=== PATIENT | male | born 1945 | race Caucasian/White ===

== ENCOUNTER 2016-06-21 22:08 | Inpatient (IN) | payer MEDICARE, BC ==
[~2016-06-21] VITALS: Ht 172.7 cm; Wt 117.9 kg
--- NOTE | ~2016-06-21 | HEMODYNAMI ---
PATIENT:THADDEUS WEAVER MEDICAL RECORD: [id number] : 49 LOCATION:[facility] [id number] ADMISSION DATE: 06/22/16 Generatedon:06/23/201612:10 Patient name: THADDEUS WEAVER Patient #: [id number] SSN: : 1945 Date of study: 06/23/2016 Page: Of Hemodynamic Procedure Report Patient Data Patient Demographics Procedure consent was obtained First Name: THADDEUS Gender: Male Last Name: MEG : 1945 [facility] Initial: T Age: 71 year(s) Patient #: [id number] Race: Additional ID: [id number] Contact details Address: [address] [place] [address] [address] State: [place] City: [place] Zip code: [address] Past Medical History History of disease Date Diagnosis Comments CAD Allergies Allergen Reaction Date Comments Reported Demerol 05/21/2014 Morphine 07/15/2015 Demerol 06/23/2016 Morphine 06/23/2016 Other allergy 06/23/2016 DILAUDID Admission Admission Data Admission Date: 06/22/2016 Admission Time: 15:53 Room #: D.2306 Weight (lbs.): 257.28 Weight (kg.): 116.7 Lab Results Lab Result Date: 06/23/2016 Lab Result Time: 0:00 Biochemistry Name Units Result Min Max BUN mg/dl 17 --(---*)-- 7 18 Creatinine mg/dl 1.1 --(--*-)-- 0.6 1.3 CBC Name Units Result Min Max Hemoglobin g/dl 11.5 *-(----)-- 13.5 17.5 Coagulation Name Units Result Min Max INR units 1.84 --(----)-* 0.85 1.17 PT sec 21.3 --(----)-* 11.6 15 Procedure Procedure Types Cath Procedure Diagnostic Procedure LHC LHC w/Coronaries w/Grafts PCI Procedure PTCA Initial Miscellaneous Procedures Moderate Sedation up to 30 minutes Procedure Description Procedure Date Procedure Date: 06/23/2016 Procedure Start Time: 11:47 Procedure End Time: 12:06 Procedure Staff Name Function Ilya Mackey MD Performing Physician Ludwin Ceron RT Scrub Sisi Espinoza RN Nurse Kaden Stevenson RT Monitor Procedure Data Cath Procedure Fluoroscopy Diagnostic fluoroscopy Total fluoroscopy Time: 5.6 time: 5.6 min min Diagnostic fluoroscopy Total fluoroscopy dose: 554 dose: 554 mGy mGy Contrast Material Contrast Material Type Amount (ml) Isovue 300 91 Entry Location Entry Primary Successful Side Size Upsize Upsize Entry Closure Succes sful Closure Location (Fr) 1 (Fr) 2 (Fr) Remarks Device Remarks Femoral Right 5 Fr 6 Fr Exoseal artery Short Diagnostic catheters Device Type Used For End Catheter Placement Cordis 5Fr Pigtail LV Angiography Catheter (MP) Diagnostic Infinity 5Fr SVG Angiography 3DRC catheter Diagnostic Infinity 5Fr SVG Angiography AR 2 MOD catheter Cordis 5Fr Pigtail Catheter (MP) Procedure Complications No complications Procedure Medications Medication Administration Route Dosage Oxygen NC 2 l/min Heparin Flush Bag added to field 2 bags (1000units/500ml NS) Lidocaine 2% added to field 20 Versed I.V. 1 mg Fentanyl I.V. 50 mcg Heparin Bolus I.V. 4000 units Versed I.V. 1 mg Fentanyl I.V. 50 mcg Versed I.V. 1 mg Fentanyl I.V. 50 mcg Fentanyl I.V. 50 mcg Versed I.V. 1 mg Versed I.V. 0.5 mg Fentanyl I.V. 50 mcg Hemodynamics Rest HGB: 11.5 (g/dl) Heart Rate: 80 (bpm) Snapshots Pre Cath Intra NCS Post Cath Vital Signs Time Heart Resp SPO2 NIBP (mmHg) Rhythm Pain Sedation Rate (ipm) (%) Status Level (bpm) 11:14:48 79 23 97 123/73(88) NSR 0 (11) 10(A) , No pain 11:18:56 79 16 97 109/76(96) NSR 0 (11) 10(A) , No pain 11:23:01 84 16 97 117/74(101) NSR 0 (11) 10(A) , No pain 11:27:11 78 16 95 115/71(89) NSR 0 (11) 10(A) , No pain 11:31:21 81 16 96 112/71(91) NSR 0 (11) 10(A) , No pain 11:35:33 80 16 97 116/68(84) NSR 0 (11) 10(A) , No pain 11:39:41 82 15 95 109/73(93) NSR 0 (11) 10(A) , No pain 11:43:47 82 16 97 118/77(96) NSR 0 (11) 10(A) , No pain 11:47:57 80 16 97 107/67(98) NSR 0 (11) 10(A) , No pain 11:52:03 77 16 96 110/77(90) NSR 0 (11) 10(A) , No pain 11:56:10 85 16 98 121/69(99) NSR 0 (11) 9(A) , No pain 12:00:22 88 17 95 113/67(101) NSR 0 (11) 9(A) , No pain 12:04:30 90 16 96 125/74(101) NSR 0 (11) 9(A) , No pain Medications Time Medication Route Dose Verified Delivered Reason Notes Effectiveness by by 11:16:10 Oxygen NC 2 Ilya Sisi Per physician l/min Narendra Espinoza RN 11:16:17 Heparin Flush added 2 Ilya Ilya used for Bag to bags Narendra Mackey MD procedure (1000units/500ml field NS) 11:16:25 Lidocaine 2% added 20ml Ilyagal Nuñezrey used for to vial Narendra Mackey MD procedure field 11:46:13 Versed I.V. 1 mg Ilya Sisi for sedation Narendra Espinoza RN 11:46:18 Fentanyl I.V. 50 Ilya Sisi for sedation mcg Narendra Espinoza RN 11:48:01 Versed I.V. 1 mg Ilya Sisi for sedation Narendra Espinoza RN 11:48:06 Fentanyl I.V. 50 Ilya Sisi for sedation mcg Narendra Espinoza RN 11:50:22 Versed I.V. 1 mg Ilya Sisi for sedation Narendra Espinoza RN 11:50:35 Fentanyl I.V. 50 Ilya Sisi for sedation mcg Narendra Espinoza RN 11:52:30 Fentanyl I.V. 50 Ilya Sisi for sedation mcg Narendra Espinoza RN 11:52:38 Versed I.V. 1 mg Ilya Sisi for sedation Narendra Espinoza RN 11:54:30 Versed I.V. 0.5 Ilya Sisi for sedation mg Narendra Espinoza RN 11:54:48 Fentanyl I.V. 50 Ilya Sisi for sedation mcg Narendra Espinoza RN 11:55:23 Heparin Bolus I.V. 4000 Ilya Sisi for dose units Nraendra Espinoza RN anticoagulation verified with dr mackey Procedure Log Time Note 10:45:03 Sisi Espinoza RN sent for patient. Start room use. 10:53:59 ACC Patient presents with Unstable Angina CCS Anginal Class 3--Marked limitation of physical activity, angina occurs with ordinary activity.. 10:54:01 Diagnostic Cath status Urgent 10:54:12 Time tracking: Regular hours 10:54:17 Plan of Care:Hemodynamics will remain stable., Cardiac rhythm will remain stable., Comfort level will be maintained., Respiratory function will remain adequate., Patient/ family verbilizes understanding of procedure., Procedure tolerated without complication., Recovers from procedure without complications.. 11:13:46 Vital chart was started 11:16:10 Oxygen 2 l/min NC was given by Sisi Espinoza RN; Per physician; 11:16:17 Heparin Flush Bag (1000units/500ml NS) 2 bags added to field was given by Ilya Mackey MD; used for procedure; 11:16:25 Lidocaine 2% 20ml vial added to field was given by Ilya Mackey MD; used for procedure; 11:19:16 Patient received from ICU to CCL 2 Alert and oriented. Tansferred to table in Supine position. 11:19:17 Warm blankets applied, and lily hugger turned on for patient comfort. 11:19:17 Correct patient and procedure confirmed by team. 11:19:18 Signed procedure consent form obtained from patient. 11:19:19 ECG and BP/O2 sat monitors applied to patient. 11:19:20 Baseline sample Acquired. 11:19:23 Rhythm: sinus rhythm 11:19:24 Full Disclosure recording started 11:19:32 H&P Date Dictated: 06/22/2016 Within 30 days and on chart.. 11:19:33 Pre-procedure instructions explained to patient. 11:19:33 Pre-op teaching completed and patient verbalized understanding. 11:19:35 Family unavailable. 11:19:36 Patient NPO since Midnight. 11:19:43 Patient allergic to Demerol 11:19:49 Patient allergic to Morphine 11:20:04 Patient allergic to Other allergyDILAUDID 11:20:06 Is the patient allergic to Iodine/contrast media? No. 11:20:22 Is patient on blood thinner?Yes 11:20:24 ACC The patient was administered the following blood thiners within the last 24 hours: ACCPlavix 11:20:26 Patient diabetic? No. 11:20:26 ----Pre-sedation anethsthesia assessment.---- 11:20:29 Previous problem with sedation/anesthesia? No ? 11:20:30 Snore? Yes 11:20:31 Sleep apnea? Yes 11:20:32 Deviated septum? No 11:20:33 Opens mouth fully? Yes 11:20:38 Sticks out tongue? Yes 11:20:40 Airway obstruction? Unknown PT WEARS O2 11:20:43 Dentures? Yes OUT 11:21:03 Pre procedure: right dorsailis pedis pulse 1+ Palpable, but thready & weak; easily obliterated 11:21:12 Patient pain scale 9/10 CP. 11:21:19 IV patent on arrival in Rt subclavian with 0.9% NaCl at 10ml/hr. 11:22:08 Lab Result : BUN 17 mg/dl 11:22:08 Lab Result : Creatinine 1.1 mg/dl 11:22:08 Lab Result : Hemoglobin 11.5 g/dl 11:22:08 Lab Result : PT 21.3 sec 11:22:08 Lab Result : INR 1.84 units 11:22:12 Lab results completed and on chart. 11:22:17 Right groin area was prepped with chlora-prep and draped in sterile fashion 11:22:18 Alarms reviewed by R. N. 11:22:19 Sharps counted by scrub and verified by R.N. 11:26:01 Physician paged 11:27:46 Use device set Femoral Dx 11:27:47 Acist Syringe opened to sterile field. 11:27:48 Bag Decanter opened to sterile field. 11:27:48 Medline Cath Pack opened to sterile field. 11:27:48 Terumo 5Fr [place] Sheath opened to sterile field. 11:27:49 St Scottie 260cm J .035 wire opened to sterile field. 11:27:50 Acist Hand Control opened to sterile field. 11:27:51 Acist Manifold opened to sterile field. 11:27:52 Tegaderm 4 x 4 opened to sterile field. 11:39:50 Patient Weight : 116.7 lbs 11:45:49 --------ALL STOP TIME OUT------ 11:45:49 Final Timeout: patient, procedure, and site verified with staff and physician. All members of the team are in agreement. 11:45:51 Right groin site verified by team. 11:45:54 Physical assessment completed. ASA score P 2 - A patient with mild systemic disease as per Ilya Mackey MD. 11:45:58 Sedation plan: IV Moderate Sedation Versed, Fentanyl 11:46:13 Versed 1 mg I.V. was given by Sisi Espinoza RN; for sedation; 11:46:18 Fentanyl 50 mcg I.V. was given by Sisi Espinoza RN; for sedation; 11:47:38 Procedure started. 11:47:54 Local anesthetic to right femoral artery with Lidocaine 2% by Ilya Mackey MD.INITIAL ACCESS ONLY 11:48:01 Versed 1 mg I.V. was given by Sisi Espinoza RN; for sedation; 11:48:01 A 5 Fr sheath was inserted into the Right Femoral artery 11:48:02 A CordApple Seeds 5Fr Pigtail Catheter (MP) was advanced over the wire and used for LV Angiography. 11:48:06 Fentanyl 50 mcg I.V. was given by Sisi Espinoza RN; for sedation; 11:48:14 Zero performed for pressure channel P1 11:49:25 LV angiography performed. 11:49:27 LV gram done using AGUAYO 11:49:33 Injector settings: Ml/sec: 10, Volume: 20, 11:50:22 Versed 1 mg I.V. was given by iSsi Espinoza RN; for sedation; 11:50:35 Fentanyl 50 mcg I.V. was given by Sisi Espinoza RN; for sedation; 11:50:47 EF : 30 % 11:50:50 Catheter removed. 11:51:51 A Diagnostic Infinity 5Fr 3DRC catheter was advanced over the wire and used for SVG Angiography. 11:51:56 GARNER to LAD angiography performed. 11:52:00 RCA angiography performed. 11:52:12 Catheter removed. 11:52:23 A Diagnostic Infinity 5Fr AR 2 MOD catheter was advanced over the wire and used for SVG Angiography. 11:52:30 Fentanyl 50 mcg I.V. was given by Sisi Espinoza RN; for sedation; 11:52:38 Versed 1 mg I.V. was given by Sisi Espinoza RN; for sedation; 11:52:57 SVG to RCA angiography performed. 11:52:58 Catheter removed. 11:53:14 Lora SellrBuyr Free Classifieds Indiaisper J 300cm 0.014 guide wire opened to sterile field. 11:53:14 ZEALER BasixCompak Inflation Kit opened to sterile field. 11:53:14 Terumo 6Fr [place] Sheath opened to sterile field. 11:54:30 Versed 0.5 mg I.V. was given by Sisi Espinoza RN; for sedation; 11:54:48 Fentanyl 50 mcg I.V. was given by Sisi Espinoza RN; for sedation; 11:55:23 Heparin Bolus 4000 units I.V. was given by Sisi Espinoza RN; for anticoagulation; dose verified with dr mackey 11:56:40 SupportLocaltronic Launcher 6Fr AR 1.0 guide catheter opened to sterile field. 11:56:47 Sheath upsized to a 6 Fr Short. 11:56:59 ACC PCI Site: mRCA has 80% stenosis. 11:57:02 ACC Pre-intervention CAPRICE Flow is 3. 11:57:08 6 Fr AR 1 guide catheter was inserted over the wire 11:57:28 WHISPER wire advanced. 11:57:57 The NC Euphora 4.0 x 15 balloon was advanced and then removed because device failure 11:58:49 Inflation number: 1 A NC Euphora 4.0 x 15 balloon was prepped and advanced across the Aorta Right -> Mid RCA, then inflated to 23 [place] for 0:21 (min:sec). 11:59:06 Inflation number: 2 The NC Euphora 4.0 x 15 balloon was reinflated across the Aorta Right -> Mid RCA, to 25 [place] for 0:15 (min:sec). 11:59:26 Inflation number: 3 The NC Euphora 4.0 x 15 balloon was reinflated across the Aorta Right -> Mid RCA, to 25 [place] for 0:20 (min:sec). 12:01:10 Inflation number: 4 The NC Euphora 4.0 x 15 balloon was reinflated across the Aorta Right -> Mid RCA, to 25 [place] for 0:28 (min:sec). 12:01:40 Inflation number: 5 The NC Euphora 4.0 x 15 balloon was reinflated across the Aorta Right -> Mid RCA, to 25 [place] for 0:21 (min:sec). 12:02:03 Balloon removed over the wire. 12:02:03 Wire removed. 12:02:05 Guide catheter removed. 12:02:11 Contrast amount:Isovue 300 91ml. 12:02:18 Sheath removed intact; hemostasis achieved with Exoseal to the Right Femoral artery. 12:02:26 Cordis 6Fr Exoseal opened to sterile field. 12:03:01 Procedure ended.(Physican Out) 12:03:08 Fluoroscopy time 05.60 minutes. 12:03:20 Flurop Dose total: 554 12:03:20 Fluoroscopy dose: 554 mGy 12:03:21 Sharps counted by scrub and verified by R.N. 12:03:22 Insertion/operative site no bleeding no hematoma. 12:04:06 Post-op/insertion site Right Femoral artery dressed using a 4 x 4 and Tegaderm. 12:04:39 Procedure type changed to Cath procedure, Diagnostic procedure, LHC, LHC w/Coronaries w/Grafts, PCI procedure, PTCA Initial, Miscellaneous Procedures, Moderate Sedation up to 30 minutes 12:04:53 Post right femoral artery:stable 12:04:54 Post Procedure Pulses reassessed and unchanged 12:04:56 Post procedure: right dorsailis pedis pulse 1+ Palpable, but thready & weak; easily obliterated. 12:04:59 Post procedure rhythm: sinus rhythm 12:05:01 Post procedure instruction explained to patient.Patient verbalizes understanding. 12:05:56 A Cordis 5Fr Pigtail Catheter (MP) was advanced over the wire and used for . 12:06:22 Procedure and supply charges have been captured, reviewed, submitted and are correct. 12:06:26 Procedure Complication : No complications 12:06:28 Vital chart was stopped 12:06:29 See physician's report for complete and final results. 12:06:31 Report given to ICU. 12:06:34 Patient transfered to ICU with Bed. 12:06:36 Procedure ended. 12:06:36 Full Disclosure recording stopped 12:06:39 End room use (Document Last) Intervention Summary Intervention Notes Time ActionType Lesion and Equipment Action# Pressure Duration Attributes Used 11:57:57 Discard NC Balloon Euphora 4.0 x 15 balloon 11:58:49 Inflate Aorta Right NC 1 23 00:22 balloon -> Mid RCA Euphora 4.0 x 15 balloon 11:59:06 Reinflate Aorta Right NC 2 25 00:15 balloon -> Mid RCA Euphora 4.0 x 15 balloon 11:59:26 Reinflate Aorta Right NC 3 25 00:20 balloon -> Mid RCA Euphora 4.0 x 15 balloon 12:01:10 Reinflate Aorta Right NC 4 25 00:28 balloon -> Mid RCA Euphora 4.0 x 15 balloon 12:01:40 Reinflate Aorta Right NC 5 25 00:21 balloon -> Mid RCA Euphora 4.0 x 15 balloon Device Usage Item Name Manufacture Quantity Catalog Hospital Part Current Minimal Lot# / Number Charge Number Stock Stock Serial# Code Acist Acist 1 25676 110316 209794 049942 20 Syringe Medical Systems NEXAGE Bag Microtek 1 2002S 817252 54673 512817 5 DecZilift Inc. Medline Cardinal 1 [id number] 130986 71791 736633 5 Cath Shield Therapeutics Terumo 5Fr Terumo 1 [id number] 708884 087116 154160 [address] [place] [address] Scottie 1 [id number] 292464 722180 787093 30 260cm J .035 wire Acist Hand Acist 1 14880 740306 342390 578444 5 Zerve Systems Inc Acist Acist 1 47781 201209 474184 881422 5 Selectron Medical Systems NEXAGE Tegaderm 4 3M 1 1626W 788022 687763 355940 5 x 4 Cordis 5Fr Cardinal 2 293769 5 Pigtail Health Catheter (MP) Diagnostic Cardinal 1 [id number] 135352 642250 745049 9 Infinity Health 5Fr 3DRC catheter Diagnostic Cardinal 1 [id number] 428767 620262 930038 20 Infinity Health 5Fr AR 2 MOD catheter Lora Lora 1 [id number] 994253 099785 461186 5 Whisper J Vascular 300cm 0.014 guide wire Merit Merit 1 [id number] 959023 536379 910612 15 Chefs Feed Medical Inflation Kit Terumo 6Fr Terumo 1 [id number] 798241 585813 148910 40 [place] Sheath Medtronic Medtronic 1 [id number] 366838 75538 472857 1 Launcher 6Fr AR 1.0 guide catheter [facility] Medtronic 2 [id number] 763284 238444 644999 1 [id number] 4.0 x 15 [id number] balloon Cordis 6Fr Cardinal 1 EX600 508656 590985 120898 10 [employer] Signature Audit [place] Stage Time Signature Unsigned Intra-Procedure 06/23/2016 Kaden Stevenson 12:10:51 PM RT(R) Signatures Monitor : Kaden Stevenson RT Signature : Date : Time : [id number] [place] [address]
[~2016-06-21 22:08] MED LIST: AMITIZA24 MCG PO; BAYER CHEWABLE81 MG PO; CARAFATE1 G PO; CHLORASEPTIC177 ML TOPICAL; COLACE100 MG PO; COREG6.25 MG PO; COUMADIN2.5 MG PO; COUMADIN5 MG PO; COUMADIN7.5 MG PO; EFFIENT10 MG PO; FEXOFENADINE HC60 MG PO; HYDROCODON-ACE1 EAC9 PO; HYDROCODONE-APA1 TAB PO; LASIX40 MG PO; LEXAPRO20 MG PO; LIPITOR10 MG PO; LIPITOR80 MG PO; LISINOPRIL5 MG PO; MEDROL DOSE PACK4 MG; MEDROL DOSE PACK4 MG PO; MILK OF MAGNESI30 ML PO; MINERAL OIL25 ML PO; MIRALAX17 GM PO; NORCO 10/325 TA1 TA1 PO; OCUFLOX 0.3 % OP5 ML LEFT EYE; PLAVIX75 MG PO; PRILOSEC20 MG PO; PROTONIX40 MG PO; RANEXA500 MG PO; SEROQUEL400 MG PO; TRAZODONE HCL300 MG PO; TYLENOL 325 MG325 MG PO; WELLBUTRIN75 MG PO; ZANTAC150 MG PO; ZANTAC300 MG PO; ZITHROMAX500 MG PO; ZOCOR20 MG PO
[2016-06-21 23:11] LABS: BASOPHILS 0.4 % (0.0-2.0); EOSINOPHILS 3.4 % (0-7); HEMATOCRIT 34.8 % (42.0-54.0); HEMOGLOBIN 11.4 g/dL (13.5-17.5); IMMATURE GRANULOCYTES 0.2 % (0-5); LYMPHOCYTES 40.7 % (15-50); MCHC 32.8 g/dL (31.0-37.0); MCV 94.6 fL (80.0-100.0); MONOCYTES 14.8 % (2-11); NEUTROPHILS 40.5 % (40-80); PLATELET COUNT 178 10x3/uL (130-400); RBC 3.68 10x6/uL (4.20-6.10); RDW 13.6 % (11.5-14.5); WBC 5.6 10x3/uL (4.8-10.8)
[2016-06-21 23:24] LABS: ALBUMIN 3.3 g/dL (3.4-5.0); ALKALINE PHOSPHATASE 81 U/L (46-116); ALT (SGPT) 32 U/L (10-68); BILIRUBIN - TOTAL 0.23 mg/dL (0.2-1.3); CALC OSMOLALITY 285 mosm/kg (275-300); CALCIUM 7.5 mg/dL (8.5-10.1); CARBON DIOXIDE 26.8 mmol/L (21.0-32.0); CHLORIDE - SERUM 105 mmol/L (98-107); GLUCOSE 117 mg/dL (74-106); POTASSIUM - SERUM 3.8 mmol/L (3.5-5.1); PROTEIN - SERUM 6.9 g/dL (6.4-8.2); SODIUM 142 mmol/L (136-145); UREA NITROGEN 17 mg/dL (7-18); eGFR NON AFRICAN AMERICAN 79 mL/min (90-120)
[2016-06-21 23:45] LABS: CHOL - HDL RATIO 4.8 ratio (2.3-4.9); CHOLESTEROL, TOTAL 162 mg/dL (0-200); CKMB 0.9 U/L (0.0-3.6); CREATINE KINASE 99 UL (21-232); HDL CHOLESTEROL 34 mg/dL (32-96); LDL CHOLESTEROL 65 mg/dL (0-100); LDL-HDL RATIO 1.9 ratio (1.5-3.5); TRIGLYCERIDE 317 mg/dL (30-200)
[2016-06-21 23:46] LABS: TROPONIN-I 0.016 ng/mL (0.000-0.060)
[2016-06-22] VITALS (15 sets, daily range): BP systolic 118–166; BP diastolic 60–97; BMI 39.2
--- NOTE | 2016-06-22 03:10 | NUR ---
RECEIVED PT TO ROOM 2117 ALERT O X3. ORIENTED TO ROOM AND CALL LIGHT. TELE SR. ASSESS AND HISTORY COMPLETE. REVIEWED HOME MEDS WITH PT AND MED REC UPDATED.
[2016-06-22] MEDS ORDERED: LASIX40 MG PO (03:15)
--- NOTE | 2016-06-22 05:31 | NUR ---
AM LAB DRAWN FROM INFUSAPORT PER PROTOCOL AND TAKEN TO LAB.
[2016-06-22 06:12] LABS: CREATINE KINASE 122 UL (21-232); TROPONIN-I 0.016 ng/mL (0.000-0.060)
--- NOTE | 2016-06-22 07:30 | NUR ---
RECEIVED PT IN BED AAOX4 RESP UNLABORED O2 ON 2LPM NC DENIES ANY NEEDS AT THIS TIME
--- NOTE | 2016-06-22 10:10 | NUR ---
CALLED TO PT ROOM PT SOB STRIDER RESP RAPID RESPONSE CALLED AT THS TIME SEE RAPID RECORD SHEET
--- NOTE | 2016-06-22 10:41 | NUR ---
FAMILY NOTIFIED OF TRANSFER TO ICU.
[2016-06-22 10:44] LABS: BASOPHILS 0.2 % (0.0-2.0); EOSINOPHILS 2.1 % (0-7); HEMATOCRIT 40.2 % (42.0-54.0); HEMOGLOBIN 13.1 g/dL (13.5-17.5); IMMATURE GRANULOCYTES 0.1 % (0-5); LYMPHOCYTES 31.3 % (15-50); MCH 31.1 pg (26.0-34.0); MCHC 32.6 g/dL (31.0-37.0); MCV 95.5 fL (80.0-100.0); MONOCYTES 13.8 % (2-11); NEUTROPHILS 52.5 % (40-80); PLATELET COUNT 205 10x3/uL (130-400); RBC 4.21 10x6/uL (4.20-6.10); WBC 9.1 10x3/uL (4.8-10.8)
--- NOTE | 2016-06-22 10:48 | NUR ---
REC'D VIA BED FROM MED 2 POST RAPID RESPONSE, TACHYPNIC WITH STRIDOR, STATES THROAT IS TIGHT AND CAN NOT BREATH, O2 VIA NC @ 4L, SAT 97%, OTHER VSS, REPOSITIONED UP IN BED, NOT EASILY CONSOLED, ASSESSMENT COMPLETE PER FLOWSHEET, ACCLAMATED TO ICU, CALL LIGHT IN REACH, AWAKE AND ALERT, DR WASHINGTON AT BEDSIDE, NEW ORDERS GIVEN
[2016-06-22 10:50] LABS: APTT 33.4 SECONDS (22.8-39.4); INR 1.84 (0.85-1.17); PROTIME 21.3 SECONDS (11.6-15.0)
[2016-06-22 10:51] LABS: D-DIMER-QUANTITATIVE 1.42 ug/mLFEU (0.20-0.54)
[2016-06-22 10:57] LABS: ALBUMIN 3.9 g/dL (3.4-5.0); ALKALINE PHOSPHATASE 96 U/L (46-116); ALT (SGPT) 37 U/L (10-68); BILIRUBIN - TOTAL 0.33 mg/dL (0.2-1.3); CALC OSMOLALITY 278 mosm/kg (275-300); CALCIUM 7.8 mg/dL (8.5-10.1); CARBON DIOXIDE 27.4 mmol/L (21.0-32.0); CHLORIDE - SERUM 102 mmol/L (98-107); CREATININE - SERUM 1.1 mg/dL (0.6-1.3); GLUCOSE 135 mg/dL (74-106); SODIUM 138 mmol/L (136-145); UREA NITROGEN 16 mg/dL (7-18); eGFR NON AFRICAN AMERICAN 70 mL/min (90-120)
[2016-06-22 10:58] LABS: POTASSIUM - SERUM 4.4 mmol/L (3.5-5.1)
[2016-06-22 11:08] LABS: CKMB 1.2 U/L (0.0-3.6); CREATINE KINASE 127 UL (21-232)
[2016-06-22 11:10] LABS: TROPONIN-I < 0.017 ng/mL (0.000-0.060)
[2016-06-22 11:44] LABS: C-REACTIVE PROTEIN 0.8 mg/dL (0.0-0.9)
--- NOTE | 2016-06-22 12:00 | NUR ---
NO SIGNS OF DISTRESS, VSS, CALM AND COOPERATIVE, VOICES NO NEEDS AT THIS TIME
[2016-06-22 12:29] LABS: ERYTHROCYTE SEDIMENTATION RATE 13 mm/hr (0-20)
--- NOTE | 2016-06-22 13:10 | NUR ---
DILAUDID 0.5MG IVP GIVEN FOR HEADACHE 11/26, PER ORDER AND PROTOCAL
--- NOTE | 2016-06-22 14:25 | NUR ---
STRIDOR HEARD FROM DOOR, POINTING AT NECK, TACYPNIC/HYPERVENTILATING, BLUISH IN COLOR, AMBU BAGGED 3 MIN, COLORED RETURNED TO PINK, DUONEB UPDRAFT GIVEN BY RT, EMESIS OF GREENISH/YELLOW SECRETIONS WITH SEDIMENT, CONTINUES TO HAVE NAUSEA, ZOFRAN4 MG GIVEN IVP, PER ORDER AND PROTOCAL,, REPOSITIONED UP AND TO BACK, CALL LIGHT IN REACHNO OTHER NEEDS AT THIS TIME
--- NOTE | 2016-06-22 15:00 | NUR ---
NO ACUTE CHANGE FROM PREVIOUS ASSESSMENT, VSS, SIGNIFICANT OTHER AT BEDSIDE, STATUS UPDATED, VOICES NO NEEDS AT THIS TIME
--- NOTE | 2016-06-22 16:37 | NUR ---
Patient Name: THADDEUS WEAVER Admission Status: ER Accout number: [id number] Admission Date: 06-22-2016 : 1945 Admission Diagnosis: Attending: MONIKA Current LOS: 1 Anticipated DC Date: Planned Disposition: Home Primary Insurance: [employer] ADV Discharge Planning Comments: * Is the patient Alert and Oriented? Yes 0 * How many steps to enter\exit or inside your home? NONE 0 * PCP DR. MALDONADO 0 * Pharmacy [facility] 0 * Preadmission Environment Home Alone 0 * ADLs Independent 0 * Equipment Oxygen 0 * Other Equipment HOME OXYGEN WITH HUMIDITY AT NIGHT [facility] - MEDICAL EQUIPMENT PROVIDER 0 * List name and contact numbers for known caregivers / representatives who currently or will assist patient after discharge: ZORAIDA GARICA, FRIEND, 0 * Community resources currently utilized None 0 * Please name any agencies selected above. NONE 0 * Additional services required to return to the preadmission environment? No 0 * Can the patient safely return to the preadmission environment? Yes 0 * Has this patient been hospitalized within the prior 30 days at any hospital? No 0 CM MET WITH PT AND HIS FRIEND, ZORAIDA, IN ROOM TO DISCUSS DISCHARGE PLANNING AND NEEDS. PT REPORTS LIVING AT HOME INDEPENDENTLY AND ALONE. ZORAIDA LIVES IN A SEPERATE APARTMENT AND HAS BEEN HELPING WITH THE COOKING, CLEANING AND LAUNDRY. PT HAS NIGHTTIME OXYGEN WITH HUMIDITY FROM [facility] [place]. PT HAS NO OUTSIDE SERVICES ASSISTING IN THE HOME. CM DISCUSSED AVAILABILITY OF HOME HEALTH, REHAB SERVICES AND MEDICAL EQUIPMENT. PT REPORTS UNKNOWN NEEDS AT THIS TIME, PLANS TO DISCHARGE HOME ALONE AND INDEPENDENTLY, REPORTS HIS FRIEND WILL PICK HIM UP FOR DISCHARGE HOME. PT PLANS TO DISCHAGE HOME ALONE, HAS UKNOWN DISCHARGE NEEDS AT THIS TIME. CM TO FOLLOW AND ASSIST NEEDED. Patrol Inspector: Vazquez Ruiz
--- NOTE | 2016-06-22 17:30 | NUR ---
CLEAR LIQUIDS TO BEDSIDE
--- NOTE | 2016-06-22 18:30 | NUR ---
AWAKE AND ALERT, WATCHING TV WITH NO SIGNS OF DISTRESS, VSS, CALL LIGHT IN REACH VOICES NO NEEDS AT THIS TIME
--- NOTE | 2016-06-22 19:30 | NUR ---
RECEIVED PATIENT AWAKE IN BED WITH EYES OPEN, ASSESSMENT COMPLETED PER FLOWSHEET. PATIENT IS AO X4, DEMEANOR IS BRUSQUE BUT POLITE. EYES PERRLA @ 3MM WITH BRISK RESPONSE, PATIENT WEARS GLASSES. ORAL/NASAL MUCOSA IS MOIST AND INTACT, TONGUE MIDLINE. S1/S2 NOTED NSR ON TELMETRY WITH PACEMAKER L UPPER CHEST, HR 87 RHYTHMIC AND REGULAR. BREATHING IS EVEN AND UNLABORED, FINE CRACKLES NOTED BILATERAL UPPER WITH DIMINISHED LOWER. ABDOMEN IS ROUND AND SOFT, BOWEL SOUNDS ACTIVE X4. PATIENT CAN AMBULATE WITOUT ASSISTANCE AND USES URINAL WITHOUT DIFFICULTY. FULL ROM ALL EXTREMITIED WITH ALL PULSES PALPABLE, VACCINE KEY CUSTOMER LEADER/PEDAL STRENGTH IS EQUAL AND BILATERAL. INFUSAPORT NOTED R UPPER CHEST, PATENT WITH FLUIDS INFUSING. PATIENT NOTIFIED OF NPO STATUS AFTER MIDNIGHT, REQUESTED SNACK AND FLUIDS. PATIENT DENIES PAIN OR OTHER NEEDS AT THIS TIME, ALL VSS AND WILL CONTINUE TO MONITOR.
--- NOTE | 2016-06-22 21:00 | NUR ---
NO VISITORS AT THIS TIME, PATIENT RESTING IN BED WITH EYES OPEN WATCHING TV. DISCUSSED CATH PROCEDURE IN AM WITH PATIENT, NO QUESTIONS AT THIS TIME. PATIENT DENIES PAIN OR OTHER NEEDS, ALL VSS AND WILL CONTINUE TO MONITOR.
--- NOTE | 2016-06-22 23:00 | NUR ---
REASSESSMENT COMPLETED PER FLOWSHEET, PATIENT RESTING IN BED WITH EYES CLOSED. S1/S2 NOTED NSR ON TELEMETRY WITH PACEMAKER, HR 78 RHYTHMIC AND REGULAR. BREATHING IS EVEN AND UNLABORED ON 2L VIA NC, FINE CRACKLES NOTED BILATERAL UPPER WITH DIMINISHED LOWER. PATIENT STATES "READY FOR BED" AND "LET ME REST", NO FURTHER NEEDS AT THIS TIME. ALL VSS AND WILL CONTINUE TO MONITOR.
[2016-06-23] VITALS (19 sets, daily range): BP systolic 97–123; BP diastolic 45–75; Ht 172.7 cm; Wt 117.9 kg
--- NOTE | 2016-06-23 03:00 | NUR ---
REASSESSMENT COMPLETED PER FLOWSHEET, PATIENT RESTING IN BED WITH EYES CLOSED. S1/S2 NOTED WITH PATIENT NSR ON TELEMETRY WTH PACEMAKER, HR 84 RHYTHIC AND REGULAR. BREATHING IS SLIGHTLY SHALLOW WITH CRACKLES NOTED BILATERAL UPPER WITH DIMINISHED LOWER, OXYGEN SAT 97% ON 4L VIA NC. PATIENT DENIES PAIN OR OTHER NEEDS AT THIS TIME, ALL VSS AND WILL CONTINUE TO MONITOR.
[2016-06-23 05:23] LABS: BASOPHILS 0 % (0.0-2.0); EOSINOPHILS 0 % (0-7); HEMATOCRIT 34.7 % (42.0-54.0); HEMOGLOBIN 11.5 g/dL (13.5-17.5); LYMPHOCYTES 19.7 % (15-50); MCHC 33.1 g/dL (31.0-37.0); MCV 93.5 fL (80.0-100.0); MEAN PLATELET VOLUME 9.1 fL (7.4-10.4); MONOCYTES 4.2 % (2-11); NEUTROPHILS 76.1 % (40-80); PLATELET COUNT 170 10x3/uL (130-400); RBC 3.71 10x6/uL (4.20-6.10); RDW 13.6 % (11.5-14.5); WBC 4.5 10x3/uL (4.8-10.8)
[2016-06-23 05:48] LABS: ANION GAP 11.6 mmol/L (8-16); CARBON DIOXIDE 27.8 mmol/L (21.0-32.0); CREATININE - SERUM 1.1 mg/dL (0.6-1.3); MAGNESIUM - SERUM 2.5 mg/dL (1.8-2.4); POTASSIUM - SERUM 4.4 mmol/L (3.5-5.1)
--- NOTE | 2016-06-23 08:47 | NUR ---
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 MEDS GIVEN WITH A SIP OF WATER.
--- NOTE | 2016-06-23 11:01 | NUR ---
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 PREOPS DONE.
--- NOTE | 2016-06-23 18:32 | NUR ---
183- REPORT CALLED TO MED 2, WILL TRANSPORT VIA W/C.
--- NOTE | 2016-06-23 18:40 | NUR ---
PT TRANSFERRED TO ROOM 2123 FROM ICU AT 1840.
--- NOTE | 2016-06-23 20:49 | NUR ---
PT RESTING IN BED. ON TELEPHONE. ALERT/ORIENTED. RIGHT CHEST WALL PORT ACCESSED AND SALINE LOCKED. O2 @ 3L/NC WITH NON LABORED RESPIRATIONS. PACED ON TELEMETRY. LHC TO RIGHT GROIN TODAY. SITE WITH DRESSSING C/D/I. GOOD PEDAL PULSES. REVIEWED PLAN OF CARE. PT REQUESTED XANAX BE BROUGHT WITH HIS BEDTIME MEDS. SEE COMPLETED SHIFT ASSESSMENT. CPOC. CALL LIGHT IN REACH.
--- NOTE | 2016-06-23 21:45 | NUR ---
SITTING ON SIDE OF BED EATING SALAD. HS MEDS GIVEN. REVIEWED EACH MED AND PURPOSE. CPOC.
[2016-06-24] VITALS: BP 89/37
[2016-06-24 04:00] VITALS: BP 107/62
--- NOTE | 2016-06-24 05:06 | NUR ---
AM PORTABLE CHEST XRAY PERFORMED.
--- NOTE | 2016-06-24 05:57 | NUR ---
AM MEDS GIVEN. REQUESTED PAIN MEDS. GIVEN TYLENOL FOR PAIN. BLOOD COLLECTED FROM RIGHT CHEST WALL PORT. CALL LIGHT IN REACH. CPOC.
[2016-06-24 06:16] LABS: BASOPHILS 0 % (0.0-2.0); EOSINOPHILS 0 % (0-7); HEMATOCRIT 34.3 % (42.0-54.0); HEMOGLOBIN 11.1 g/dL (13.5-17.5); IMMATURE GRANULOCYTES 0.2 % (0-5); LYMPHOCYTES 9.2 % (15-50); MCH 30.7 pg (26.0-34.0); MCHC 32.4 g/dL (31.0-37.0); MEAN PLATELET VOLUME 9.4 fL (7.4-10.4); MONOCYTES 9.2 % (2-11); NEUTROPHILS 81.4 % (40-80); PLATELET COUNT 179 10x3/uL (130-400); RBC 3.61 10x6/uL (4.20-6.10); RDW 13.7 % (11.5-14.5)
[2016-06-24 06:46] LABS: ALBUMIN 3.3 g/dL (3.4-5.0); ALKALINE PHOSPHATASE 81 U/L (46-116); ALT (SGPT) 41 U/L (10-68); CALC OSMOLALITY 286 mosm/kg (275-300); CALCIUM 8.4 mg/dL (8.5-10.1); CHLORIDE - SERUM 101 mmol/L (98-107); CREATININE - SERUM 1.3 mg/dL (0.6-1.3); GLUCOSE 170 mg/dL (74-106); MAGNESIUM - SERUM 2.3 mg/dL (1.8-2.4); PHOSPHOROUS 3.5 mg/dL (2.5-4.9); POTASSIUM - SERUM 3.7 mmol/L (3.5-5.1); PRO BNP 1218 pg/mL (0-125); PROTEIN - SERUM 6.9 g/dL (6.4-8.2); SODIUM 139 mmol/L (136-145); UREA NITROGEN 27 mg/dL (7-18); eGFR NON AFRICAN AMERICAN 58 mL/min (90-120)
[2016-06-24 06:47] LABS: TROPONIN-I 1.073 ng/mL (0.000-0.060)
--- NOTE | 2016-06-24 07:24 | NUR ---
PT LAYING DOWN IN BED SLEEPING NO S/S DISTRESS NOTED WILL CONT TO MONITOR.
--- NOTE | 2016-06-24 08:30 | NUR ---
CHANGED PORT CVL DRESSING STERILE TECHNIQUE INITIATED. SIGNED AND DATED.
[2016-06-24] MEDS ORDERED: HYDROCODONE-APA1 TAB PO (09:44)
--- NOTE | 2016-06-24 19:44 | NUR ---
RESUMED CARE OF PT, LYING IN BED RESPIRATIONS EVEN AND UNLABORED ON 3PM VIA NC. 84 SR WITH PVCS. RIGHT GROIN WNL PEDAL PULSES PALPABLE. NO NEEDS VOICED AT THIS TIME. WILL CONTINUE TO MONITOR. SEE NURSE ASSESSMENT. CALL LIGHT IN REACH.
[2016-06-25 06:22] LABS: BASOPHILS 0.1 % (0.0-2.0); EOSINOPHILS 0 % (0-7); HEMATOCRIT 35.3 % (42.0-54.0); HEMOGLOBIN 11.6 g/dL (13.5-17.5); IMMATURE GRANULOCYTES 0.2 % (0-5); LYMPHOCYTES 16.9 % (15-50); MCH 30.9 pg (26.0-34.0); MCHC 32.9 g/dL (31.0-37.0); MCV 94.1 fL (80.0-100.0); MEAN PLATELET VOLUME 9.6 fL (7.4-10.4); MONOCYTES 11.8 % (2-11); PLATELET COUNT 186 10x3/uL (130-400); RBC 3.75 10x6/uL (4.20-6.10); RDW 13.5 % (11.5-14.5); WBC 8.5 10x3/uL (4.8-10.8)
--- NOTE | 2016-06-25 06:26 | NUR ---
NO CHANGES FROM PREVIOUS ASSESSMENT, CALL LIGHT IN REACH. WILL CONTINUE TO WITH PLAN OF CARE.
[2016-06-25 06:44] LABS: ANION GAP 9.7 mmol/L (8-16); CALCIUM 8.4 mg/dL (8.5-10.1); CREATININE - SERUM 1.2 mg/dL (0.6-1.3); MAGNESIUM - SERUM 2.1 mg/dL (1.8-2.4); POTASSIUM - SERUM 3.7 mmol/L (3.5-5.1)
[2016-06-25 08:07] VITALS: BP 122/72
--- NOTE | 2016-06-25 09:54 | NUR ---
TELEMETRY SR. NO NEEDS VOICED. CALL LIGHT IN REACH. WILL MONITOR.
[2016-06-25 11:23] VITALS: BP 150/88
[2016-06-25 15:28] VITALS: BP 101/60
--- NOTE | 2016-06-25 19:48 | NUR ---
RESUMED CARE OF PT, LYING IN BED RESPIRATIONS EVEN AND UNLABORED ON 3LPM VIA NC. 82 SR ON TELEMETRY. RIGHT CHEST INFUSAPORT SALINE LOCKED. REQUESTS PAIN PILL FOR BACK PAIN. CALL LIGHT IN REACH. WILL CONTINUE TO MONITOR. SEE NURSE ASSESSMENT.
[2016-06-25 20:00] VITALS: BP 110/65
[2016-06-26] VITALS: BP 122/74
--- NOTE | 2016-06-26 03:36 | NUR ---
SMOKING PIPE MAKER AT BEDSIDE TO OBTAIN VITALS, CALL LIGHT IN REACH. WILL CONTINUE WITH PLAN OF CARE.
[2016-06-26 04:00] VITALS: BP 113/62
[2016-06-26 06:04] LABS: BASOPHILS 0 % (0.0-2.0); EOSINOPHILS 0.7 % (0-7); HEMATOCRIT 36.4 % (42.0-54.0); HEMOGLOBIN 11.7 g/dL (13.5-17.5); IMMATURE GRANULOCYTES 0.5 % (0-5); LYMPHOCYTES 37.3 % (15-50); MCH 30.5 pg (26.0-34.0); MCHC 32.1 g/dL (31.0-37.0); MCV 94.8 fL (80.0-100.0); MEAN PLATELET VOLUME 9.7 fL (7.4-10.4); MONOCYTES 13.3 % (2-11); NEUTROPHILS 48.2 % (40-80); PLATELET COUNT 175 10x3/uL (130-400); RBC 3.84 10x6/uL (4.20-6.10); RDW 13.7 % (11.5-14.5); WBC 7.7 10x3/uL (4.8-10.8)
[2016-06-26 06:59] LABS: ALBUMIN 3.2 g/dL (3.4-5.0); ANION GAP 8.7 mmol/L (8-16); BILIRUBIN - TOTAL 0.27 mg/dL (0.2-1.3); CALCIUM 8.7 mg/dL (8.5-10.1); CARBON DIOXIDE 33.9 mmol/L (21.0-32.0); CHOL - HDL RATIO 4.3 ratio (2.3-4.9); CREATININE - SERUM 1.2 mg/dL (0.6-1.3); LDL-HDL RATIO 2.1 ratio (1.5-3.5); MAGNESIUM - SERUM 2.1 mg/dL (1.8-2.4); POTASSIUM - SERUM 3.6 mmol/L (3.5-5.1); PROTEIN - SERUM 6.8 g/dL (6.4-8.2); THYROID STIMULATING HORMONE 2.71 uIU/mL (0.36-3.74)
--- NOTE | 2016-06-26 09:40 | NUR ---
UP SOB WITH CALL LIGHT IN REACH. TELEMETRY SR. WILL CONT. PLAN OF CARE.
[2016-06-26 09:52] VITALS: BP 93/47
--- NOTE | 2016-06-26 13:32 | NUR ---
Nutrition follow-up: Diet: low sodim PO intake 100% of meals Labs reviewed RDN following.
--- NOTE | 2016-06-26 14:41 | NUR ---
IV AND TELEMETRY DCD. DC PLANS GIVEN. UNDERSTANDING VOICED. ESCORTED TO CAR BY W/C.
--- NOTE | 2016-06-26 15:01 | NUR ---
Patient Name: THADDEUS WEAVER Encounter No: [id number] : 1945 Primary Insurance: [employer] ADV Anticipated DC Date: 06-26-2016 Planned Disposition: Home LATE ENTRY: DCP follow-up note: CM MET WITH PT IN ROOM TO DISCUSS DISCHARGE NEEDS AND PLANNING. CM DISCUSSED AVAILABILITY OF HOME HEALTH, REHAB SERVICES AND MEDICAL EQUIPMENT. PT DENIES DISCHARGE NEEDS. FRIEND HERE TO TRANSPORT HOME AT DISCHARGE. IMPORTANT MESSAGE FROM MEDICARE PROVIDED AND EXPLAINED. Vazquez Ruiz, CASE MANAGEMENT
--- NOTE | 2016-06-29 10:08 | OP ---
PATIENT NAME: THADDEUS WEAVER MEDICAL RECORD: [id number] :[birth year] LOCATION:D.M2 D.2123 ADMISSION DATE:06/22/16 SURGEON: HUSSEIN WALKER MD DATE OF OPERATION: 06/23/2016 PROCEDURES: 1. PTCA vein graft to RCA. 2. Left heart catheterization. 3. Selective coronary angiography. 4. Vein graft angiography. 5. GARNER angiography. 6. Left ventriculogram. PROCEDURE IN DETAIL: After informed consent was obtained and after detailed explanation of risks, benefits as well as alternative therapies, the patient elected to proceed with angiogram and angioplasty. The right femoral area was prepped and draped in normal sterile fashion. The right femoral artery was cannulated via modified Seldinger technique with placement of 6-[place] sheath. All catheters exchanged through this sheath. FINDINGS: The left ventriculogram was performed in standard 30-degree AGUAYO view reveals global hypokinesis, ejection fraction is 30%. SELECTIVE CORONARY ANGIOGRAPHY: 1. Left main is closed by previous cardiac catheterization. 2. GARNER to the LAD is widely patent. 3. Vein graft to the circumflex is closed. 4. Right coronary is widely patent. The previously placed stents widely patent. The seldovia right coronary feeds the PLV system. 5. Vein graft to the right coronary PDA is widely patent; however, there is 80% in-stent restenosis in the mid vessel. PTCA: ____ stent in this area, the high pressure PTCA was performed with a 4.0 high-pressure Euphora balloon to 25 atmospheres. Result was 20% residual stenosis. OVERALL IMPRESSION: Successful percutaneous transluminal coronary angioplasty and high pressure for vein graft to the right coronary has previously placed stents going from 80% initial stenosis to 10% residual stenosis. TRANSINT:[id number] Voice Confirmation ID: [id number] DOCUMENT ID: [id number] HUSSIEN WALKER MD at 1008 CC: [id number] DICTATION DATE: 06/23/16 1208 DUMPER OPERATOR: 06/23/16 1536 DIS IN 06/26/16 [place] [address]
--- NOTE | 2016-06-29 10:08 | CN ---
PATIENT NAME:THADDEUS WEAVER MEDICAL RECORD: [id number] : [birth year] LOCATION:D. D.2123 ADMIT DATE: 06/22/16 ACCOUNT: [id number] CONSULTING PHYSICIAN: HUSSEIN WALKER MD REFERRING PHYSICIAN: CHRISTIANO WILCOX MD DATE OF CONSULTATION: 06/22/2016 DIAGNOSES: 1. Unstable angina. 2. Respiratory distress with stridor. 3. RUPERT inhibitor for blood pressure. 4. Hypertension. 5. Coronary artery disease. 6. Previous percutaneous transluminal coronary angioplasty stent. 7. Aortic valve replacement. 8. Coumadin anticoagulation for aortic valve replacement. 9. Peripheral vascular disease. 10. Hypertension. 11. Hyperlipidemia. HISTORY OF PRESENT ILLNESS: Mr. Weaver presented with chest pain. His last cardiac intervention was November 2015. His is chest pain like that of his previous angina. His EKG has nonspecific ST-T abnormalities. While he was on the floor, he became stridulous. He has had an episode of stridor and respiratory distress in the past. He was seen by pulmonary, given racemic epinephrine. His breathing is now normal. He has been on lisinopril. PHYSICAL EXAMINATION: GENERAL APPEARANCE: Well-nourished, well-developed, appears stated age. Level of distress, comfortable. PSYCHIATRIC: Mental status, alert, normal affect. Orientation, oriented to time, place and person. EYES: Lids and conjunctiva, noninjected. No discharge, no pallor. ENT: Lips, teeth, gums, normal dentition. Oropharynx, no cyanosis, no pallor. NECK: Carotid arteries, bilateral normal upstroke, no bruits, no thrills. JUGULAR VEINS: No jugular venous pressure or distention. CERVICAL LYMPH NODES: Nontender, nonenlarged. THYROID: Not enlarged. Nontender. No nodules. LUNGS: Respiratory effort, unlabored. CHEST: Normal curvature. No thoracic deformity. No chest wall tenderness. Percussion, resonant. Auscultation, clear. No wheezes, no rales, no rhonchi. CARDIOVASCULAR: Precordial exam, nondisplaced. No heaves or pericardial thrills. Rate and rhythm, regular. Heart sounds, normal S1, normal S2. No S3, no gallop, no rub. Systolic murmur, not heard. Diastolic murmur, not heard. EXTREMITIES: No cyanosis, no edema. Peripheral pulses, full and equal in all extremities, except as noted. No bruits appreciated. ABDOMEN: Soft, nondistended. Normal aorta. No bruit. Nontender. No masses. Liver, nontender, no hepatomegaly. Spleen, nontender, no splenomegaly. MUSCULOSKELETAL: No joint tenderness. No joint swelling. No erythema. NEUROLOGICAL: Normal gait, normal strength, normal tone. SKIN: Warm and dry. REVIEW OF SYSTEMS: The patient reports easy bruising but reports no swollen glands. The patient reports no fever, no night sweats, no significant weight gain, no significant weight loss. No significant exercise tolerance. The CONSULT REPORT [id number] THADDEUS WEAVER patient reports no dry eyes, no irritation, no vision change. Patient reports no difficulty hearing and no ear pain. Patient reports no frequent nose bleeds or nose and sinus problems. Patient reports on arm pain on exertion. No shortness of breath while lying down. No history of heart murmur. Patient reports no cough, no wheezing or coughing up blood. Patient reports no abdominal pain, no vomiting. Normal appetite. No diarrhea and not vomiting blood. No nausea and no constipation. Patient reports no incontinence. No difficulty urinating. No hematuria. No increased frequency. Patient reports no muscle aches. No weakness, no arthralgias, no back pain. No swelling of the extremities. Patient reports no abnormal mole, no jaundice, no rashes. Reports no loss of consciousness. No weakness and no numbness. No seizures, dizziness, or headaches. The patient reports no depression, no sleep disturbance, feeling safe in a relationship and no alcohol abuse. Patient reports on fatigue. Reports no runny nose or sinus pressure. No itching, no hives, and no frequent sneezing. OVERALL IMPRESSION: At this time, I think the stridor was secondary to lisinopril as per pulmonary. We will discontinue lisinopril, use another agent that is not an RUPERT or an ARB for blood pressure control, first the angina goes, his INR is 1.8, we will give him 2 units of FFP today. Plan for cardiac catheterization in the a.m. Further care depends upon findings of the catheterization. TRANSINT:[id number] Voice Confirmation ID: [id number] DOCUMENT ID: [id number] HUSSEIN WALKER MD at 1008 CC: [id number] DICTATION DATE: 06/22/16 1237 WEBSITE ADMIN: 06/22/161913 DIS IN 06/26/16 [facility] [address] [place] [address]
--- NOTE | 2016-07-10 13:49 | CN ---
PATIENT NAME:THADDEUS WEAVER MEDICAL RECORD: [id number] : [birth year] LOCATION:D. D.2123 ADMIT DATE: 06/22/16 ACCOUNT: [id number] CONSULTING PHYSICIAN: ROXY WASHINGTON MD REFERRING PHYSICIAN: ADI CLARK MD DATE OF CONSULTATION: 06/22/2016 CONSULT REQUESTING PHYSICIAN: Dr. Adi Clark. REASON FOR CONSULTATION: Acute dyspnea, stridor. HISTORY OF PRESENT ILLNESS: Mr. Weaver is a 71-year-old gentleman who was admitted with chest pain. The patient got Dilaudid this morning and also he was swabbing his mouth when he developed severe shortness of breath and stridor. He was thinking that his throat is closing on him. He was given racemic epinephrine nebulizer as well as methylprednisolone IV. Now, he is feeling a little bit better. According to the patient, he had a similar episode a year ago, but he does not recall any association. He does have hypertension for which he is taking lisinopril, but the patient claims that he has no problems with it. He has a sore throat a few days ago and he was treated for that. He is also having some hoarseness of voice for the last 3-4 days. REVIEW OF SYSTEMS: Mainly in the history of present illness. PAST MEDICAL HISTORY: 1. Atrial fibrillation. 2. Coronary artery disease. 3. Congestive heart failure with cardiomyopathy. 4. Hyperlipidemia. 5. Hypertension. 6. History of myocardial infarction. 7. History of aortic valve stenosis. 8. Chronic gastroesophageal reflux disease. 9. Chronic renal failure. 10. Attention deficit hyperactivity disorder. 11. History of cerebrovascular accident. 12. Anemia. 13. Depression. PAST SURGICAL HISTORY: 1. Cholecystectomy. 2. Appendectomy. 3. Status post pacemaker placement. 4. Defibrillator placement. 5. Multiple cardiac catheterization and stent placement. 6. Ruptured umbilical aortic hernia repair. 7. Aortic valve replacement with porcine valve. 8. Right hip fracture surgery. ALLERGIES: HE IS ALLERGIC TO MORPHINE AND DEMEROL. MEDICATIONS: He is on lisinopril, warfarin, Wellbutrin, Plavix, ranitidine, aspirin, Seroquel, atorvastatin, carvedilol, and furosemide. PERSONAL AND SOCIAL HISTORY: The patient is an ex-smoker. He was also drinker. CONSULT REPORT [id number] THADDEUS WEAVER He quit smoking and drinking both at the same time. FAMILY HISTORY: Significant for neurological disorder and CVAs. PHYSICAL EXAMINATION: GENERAL: Now, the patient is lying comfortably. He is not in acute distress, but he does have stridor. VITAL SIGNS: The blood pressure is 125/70, pulse is 91, respiration is 18, temperature 98.1, and SPO2 is 99% on 3 liters nasal cannula. HEENT: Conjunctivae is pink, sclerae nonicteric. NECK: Supple, no JVD. CHEST: The chest excursion is minimal on both sides. There is audible stridor over the neck. There is wheeze on forceful expiration. HEART: Rhythm regular, normal sound, no murmur. ABDOMEN: Soft, bowel sounds present. No hepatosplenomegaly. RECTAL: Deferred. EXTREMITIES: No cyanosis. No clubbing. There is 1+ pedal edema. SKIN: Warm, normal turgor. CENTRAL NERVOUS SYSTEM: The patient is awake and alert. There are no obvious cranial nerve abnormality. The gait was not tested. LABORATORY DATA: CBC: WBC 9.1, hemoglobin 13.1, hematocrit is 40.2, monocytes 13.8, and eosinophil at 2.1. Chemistry: Sodium 138, potassium 4.4, and glucose is 135. Cardiac enzymes within normal range. The proBNP is pending. C-reactive protein is pending. ABG: The pH is 7.38, pCO2 is 39.7, and the pO2 is 123. IMPRESSION: 1. Acute stridor, most likely secondary to angioedema with sudden in onset. 2. Acute dyspnea secondary to above. 3. Chest pain, rule out acute coronary syndrome. 4. History of coronary artery disease. 5. History of congestive heart failure, cardiomyopathy. 6. Hypertension. 7. History of atrial fibrillation. 8. History of gastroesophageal reflux disease. 9. History of smoking, possible underlying chronic obstructive pulmonary disease. RECOMMENDATION: 1. Racemic epinephrine 4 hourly p.r.n. 2. Albuterol/ipratropium nebulizer. 3. Start him on Brovana and budesonide nebulizer. 4. Methylprednisolone IV. 5. Check BNP. Continue the CHF treatment. 6. Protonix. 7. Supplemental oxygen. 8. Follow labs and chest radiograph in the morning. Dr. Clark, once again, thanks for involving me in the care of Mr. Weaver. The critical care time is 45 minutes. TRANSINT:[id number] Voice Confirmation ID: [id number] DOCUMENT ID: [id number] CONSULT REPORT [id number] THADDEUS WEAVER MUSHTAQ MD at 1349 CC: BRYANNA BONILLA MD [id number] DICTATION DATE: 06/22/16 1123 CORPORATE COMMUNICATIONS SPECIALIST: 06/22/16 191 DIS IN 06/26/16 [id number] [place] [address]
== END 2016-06-26 14:41 | disposition home or self-care (01) | DRG 251 ==
LOC: D.ER 22:08 → D.ICU 06-22 01:08 → OBSVTIME 06-22 01:08 → D.M2 06-22 01:08 → D.ICU 06-22 10:56 → D.M2 06-22 15:53
PROVIDERS: Family Medicine; Internal Medicine Interventional Cardiology; Internal Medicine Pulmonary Disease; ADMIT Family Medicine Adult Medicine
PROC: B2121ZZ Fluoroscopy of Single Coronary Artery Bypass Graft using Low Osmolar Contrast (ICD-10-PCS; 2016-06-23)
PROC: B2151ZZ Fluoroscopy of Left Heart using Low Osmolar Contrast (ICD-10-PCS; 2016-06-23)
PROC: B2111ZZ Fluoroscopy of Multiple Coronary Arteries using Low Osmolar Contrast (ICD-10-PCS; 2016-06-23)
PROC: B2181ZZ Fluoroscopy of Left Internal Mammary Bypass Graft using Low Osmolar Contrast (ICD-10-PCS; 2016-06-23)
PROC: 02703ZZ Dilation of Coronary Artery, One Artery, Percutaneous Approach (ICD-10-PCS; principal; 2016-06-23 08:00)
PROC: 4A023N7 Measurement of Cardiac Sampling and Pressure, Left Heart, Percutaneous Approach (ICD-10-PCS; 2016-06-23 08:00)
DX: T82.855A Stenosis of coronary artery stent, initial encounter (principal); I25.110 Atherosclerotic heart disease of native coronary artery with unstable angina pectoris; I13.0 Hypertensive heart and chronic kidney disease with heart failure and stage 1 through stage 4 chronic kidney disease, or unspecified chronic kidney disease; I42.9 Cardiomyopathy, unspecified; T78.3XXA Angioneurotic edema, initial encounter; Y83.8 Other surgical procedures as the cause of abnormal reaction of the patient, or of later complication, without mention of misadventure at the time of the procedure; Z79.01 Long term (current) use of anticoagulants; I48.91 Unspecified atrial fibrillation; E11.22 Type 2 diabetes mellitus with diabetic chronic kidney disease; N18.9 Chronic kidney disease, unspecified; I50.9 Heart failure, unspecified; E11.65 Type 2 diabetes mellitus with hyperglycemia; E78.5 Hyperlipidemia, unspecified; K21.9 Gastro-esophageal reflux disease without esophagitis; I16.0 Hypertensive urgency; D64.9 Anemia, unspecified; F32.9 Major depressive disorder, single episode, unspecified; F41.9 Anxiety disorder, unspecified; I73.9 Peripheral vascular disease, unspecified; F90.9 Attention-deficit hyperactivity disorder, unspecified type; Z95.2 Presence of prosthetic heart valve; Z86.73 Personal history of transient ischemic attack (TIA), and cerebral infarction without residual deficits; I25.2 Old myocardial infarction; Z72.0 Tobacco use

== ENCOUNTER 2016-07-25 10:01 | Emergency (ER) | payer BC, MEDICARE ==
[2016-06-23 09:26] VITALS: BMI 39.1
[2016-07-25 10:38] LABS: APPEARANCE CLEAR (CLEAR); BILIRUBIN NEGATIVE (NEGATIVE); COLOR YELLOW (YELLOW); GLUCOSE NEGATIVE (NEGATIVE); KETONE NEGATIVE (NEGATIVE); LEUKOCYTE ESTERASE NEGATIVE (NEGATIVE); NITRITE NEGATIVE (NEGATIVE); PROTEIN NEGATIVE (NEGATIVE); UROBILINOGEN NORMAL (NORMAL)
[2016-07-25 10:41] LABS: UDS - AMPHET NEGATIVE QUAL (NEGATIVE); UDS - BARB NEGATIVE QUAL (NEGATIVE); UDS - BENZO NEGATIVE QUAL (NEGATIVE); UDS - COCAINE NEGATIVE QUAL (NEGATIVE); UDS - METH NEGATIVE QUAL (NEGATIVE); UDS - OPIATE POSITIVE QUAL (NEGATIVE); UDS - PCP NEGATIVE QUAL (NEGATIVE); UDS - THC NEGATIVE QUAL (NEGATIVE)
[2016-07-25 10:50] LABS: BASOPHILS 0.3 % (0.0-2.0); EOSINOPHILS 1.7 % (0-7); HEMATOCRIT 35.9 % (42.0-54.0); HEMOGLOBIN 11.9 g/dL (13.5-17.5); IMMATURE GRANULOCYTES 0.5 % (0-5); LYMPHOCYTES 32.6 % (15-50); MCHC 33.1 g/dL (31.0-37.0); MCV 93.5 fL (80.0-100.0); MONOCYTES 12.4 % (2-11); NEUTROPHILS 52.5 % (40-80); PLATELET COUNT 201 10x3/uL (130-400); RBC 3.84 10x6/uL (4.20-6.10); RDW 14.3 % (11.5-14.5); WBC 6.6 10x3/uL (4.8-10.8)
[2016-07-25 10:58] LABS: APTT 48.1 SECONDS (22.8-39.4); INR 1.87 (0.85-1.17); PROTIME 21.5 SECONDS (11.6-15.0)
[2016-07-25 11:03] LABS: ALBUMIN 3.4 g/dL (3.4-5.0); ALKALINE PHOSPHATASE 90 U/L (46-116); ALT (SGPT) 36 U/L (10-68); BILIRUBIN - TOTAL 0.33 mg/dL (0.2-1.3); CALC OSMOLALITY 278 mosm/kg (275-300); CALCIUM 8.7 mg/dL (8.5-10.1); CHLORIDE - SERUM 99 mmol/L (98-107); CREATININE - SERUM 1.1 mg/dL (0.6-1.3); GLUCOSE 114 mg/dL (74-106); POTASSIUM - SERUM 3.9 mmol/L (3.5-5.1); PROTEIN - SERUM 7.4 g/dL (6.4-8.2); SODIUM 138 mmol/L (136-145); UREA NITROGEN 17 mg/dL (7-18); eGFR NON AFRICAN AMERICAN 70 mL/min (90-120)
[2016-07-25 11:11] LABS: CREATINE KINASE 72 UL (21-232); PRO BNP 665 pg/mL (0-125)
[2016-07-25 11:15] LABS: TROPONIN-I < 0.017 ng/mL (0.000-0.060)
== END 2016-07-25 12:55 | disposition home or self-care (01) ==
LOC: D.ER 10:01
PROVIDERS: Emergency Medicine
DX: M79.605 Pain in left leg (principal); I49.3 Ventricular premature depolarization; Z95.1 Presence of aortocoronary bypass graft; I10 Essential (primary) hypertension; F31.9 Bipolar disorder, unspecified; G47.00 Insomnia, unspecified

== ENCOUNTER 2016-11-09 16:27 | Emergency (ER) | payer BC, MEDICARE ==
[2016-06-23 09:26] VITALS: BMI 39.1
[2016-11-09 17:10] LABS: BASOPHILS 0.2 % (0-2); EOSINOPHILS 1.5 % (0-7); HEMATOCRIT 36.1 % (42.0-54.0); HEMOGLOBIN 11.8 g/dL (13.5-17.5); IMMATURE GRANULOCYTES 0.2 % (0-5); LYMPHOCYTES 24.9 % (15-50); MCH 30.2 pg (26.0-34.0); MCHC 32.7 g/dL (31.0-37.0); MCV 92.3 fL (80.0-100.0); MEAN PLATELET VOLUME 9.2 fL (7.4-10.4); MONOCYTES 12.9 % (2-11); NEUTROPHILS 60.3 % (40-80); PLATELET COUNT 169 10x3/uL (130-400); RBC 3.91 10x6/uL (4.20-6.10); RDW 14.8 % (11.5-14.5); WBC 5.5 10x3/uL (4.8-10.8)
[2016-11-09 17:55] LABS: ALBUMIN 3.3 g/dL (3.4-5.0); ALKALINE PHOSPHATASE 81 U/L (46-116); ALT (SGPT) 23 U/L (10-68); CALC OSMOLALITY 278 mosm/kg (275-300); CALCIUM 8.1 mg/dL (8.5-10.1); CARBON DIOXIDE 27.3 mmol/L (21.0-32.0); CHLORIDE - SERUM 103 mmol/L (98-107); GLUCOSE 103 mg/dL (74-106); POTASSIUM - SERUM 3.8 mmol/L (3.5-5.1); PROTEIN - SERUM 6.7 g/dL (6.4-8.2); SODIUM 140 mmol/L (136-145); UREA NITROGEN 13 mg/dL (7-18); eGFR NON AFRICAN AMERICAN 79 mL/min (90-120)
[2016-11-09 18:06] LABS: CHOL - HDL RATIO 4.2 ratio (2.3-4.9); CHOLESTEROL, TOTAL 171 mg/dL (0-200); CKMB 0.8 U/L (0.0-3.6); CREATINE KINASE 54 UL (21-232); HDL CHOLESTEROL 41 mg/dL (32-96); LDL CHOLESTEROL 103 mg/dL (0-100); LDL-HDL RATIO 2.5 ratio (1.5-3.5); MAGNESIUM - SERUM 2.1 mg/dL (1.8-2.4); TRIGLYCERIDE 136 mg/dL (30-200); TROPONIN-I < 0.017 ng/mL (0.000-0.060)
== END 2016-11-09 18:50 | disposition home or self-care (01) ==
LOC: D.ER 16:27
PROVIDERS: Emergency Medicine
DX: R07.9 Chest pain, unspecified (principal); I25.10 Atherosclerotic heart disease of native coronary artery without angina pectoris; D64.9 Anemia, unspecified; I50.9 Heart failure, unspecified; I10 Essential (primary) hypertension

== ENCOUNTER 2016-11-15 00:20 | Observation (INO) | payer BC, MEDICARE ==
[~2016-11-15] VITALS: Ht 172.7 cm; Wt 104.5 kg
--- NOTE | ~2016-11-15 | HEMODYNAMI ---
PATIENT:THADDEUS WEAVER MEDICAL RECORD: [id number] : 49 [id number] ADMISSION DATE: 11/15/16 Generatedon:11/17/201615:17 Patient name: THADDEUS WEAVER Patient #: [id number] SSN: : 1945 Date of study: 11/17/2016 Page: Of Hemodynamic Procedure Report Patient Data Patient Demographics Procedure consent was obtained First Name: THADDEUS Gender: Male Last Name: MEG : 1945 [facility] Initial: T Age: 71 year(s) Patient #: [id number] Race: Additional ID: [id number] Contact details [address]: [address] [place] [address] [address] State: [place] City: [place] Zip code: [address] Past Medical History History of disease Date Diagnosis Comments CAD Allergies Allergen Reaction Date Comments Reported Demerol 05/21/2014 Morphine 07/15/2015 Demerol 06/23/2016 Morphine 06/23/2016 Other allergy 06/23/2016 DILAUDID Other allergy 11/17/2016 Demerol, Morphine, Dilaudid Admission Admission Data Admission Date: 11/15/2016 Admission Time: 2:52 Room #: D.2114 Lab Results Lab Result Date: 11/17/2016 Lab Result Time: 5:00 Biochemistry Name Units Result Min Max BUN mg/dl 13 --(--*-)-- 7 18 Creatinine mg/dl 1 --(--*-)-- 0.6 1.3 CBC Name Units Result Min Max Hematocrit % 35.3 *-(----)-- 42 54 Hemoglobin g/dl 11.3 *-(----)-- 13.5 17.5 Procedure Procedure Types Cath Procedure Diagnostic Procedure LHC LHC w/Coronaries w/Grafts Miscellaneous Procedures Moderate Sedation up to 15 minutes Procedure Description Procedure Date Procedure Date: 11/17/2016 Procedure Start Time: 14:51 Procedure End Time: 15:12 Procedure Staff Name Function Cristal De Dios RT Scrub Reanna Villareal RN Nurse Nicholas Hernandez MD Performing Physician Salazar Mendez RT Monitor Procedure Data Cath Procedure Fluoroscopy Diagnostic fluoroscopy Total fluoroscopy Time: 5.3 time: 5.3 min min Diagnostic fluoroscopy Total fluoroscopy dose: dose: 311.93 mGy 311.93 mGy Contrast Material Contrast Material Type Amount (ml) Isovue 300 98 Entry Location Entry Primary Successful Side Size Upsize Upsize Entry Closure Succes sful Closure Location (Fr) 1 (Fr) 2 (Fr) Remarks Device Remarks Femoral Right 5 Fr Exoseal artery Estimated blood loss: 5 ml Diagnostic catheters Device Type Used For End Catheter Placement Cordis 5Fr JL 4.0 Procedure Catheter (MP) Cordis 5Fr 3DRC Catheter Procedure (MP) Diagnostic Infinity 5Fr Procedure JL 5 catheter Diagnostic Infinity 5Fr Procedure AR 2 MOD catheter Cordis 5Fr Pigtail Procedure Catheter (MP) Procedure Medications Medication Administration Route Dosage Oxygen 10 l/min Lidocaine 2% added to field 20 Heparin Flush Bag added to field 2 bags (1000units/500ml NS) 0.9% NaCl I.V. 100 ml/hr Refer to Anesthesia Notes for Sedation Medications Hemodynamics Rest HGB: 11.3 (g/dl) Heart Rate: 89 (bpm) Pressure Samples Time Site Value (mmHg) Purpose Heart Use Rate(bpm) 15:03 LV 122/2,34 Snapshot 96 Gradients Valve Time Site Site Mean SEP/DFP Peak To Heart Use 1 2 (mmHg) (sec/min) Peak Rate (mmHg) (bpm) Aortic 15:04 LV AO 109 Snapshots Pre Cath Intra NCS Post Cath Vital Signs Time Heart Resp SPO2 NIBP (mmHg) Rhythm Pain Sedation Rate (ipm) (%) Status Level (bpm) 14:39:53 87 32 100 116/82(101) NSR 0 (11) 10(A) , No pain 14:44:12 85 24 99 114/76(95) NSR 0 (11) 10(A) , No pain 14:48:26 84 23 99 123/83(98) NSR 0 (11) 10(A) , No pain 14:52:44 86 15 97 100/64(86) NSR 0 (11) 9(A) , No pain 14:56:54 90 14 98 118/77(96) NSR 0 (11) 9(A) , No pain 15:01:10 95 14 98 120/82(105) NSR 0 (11) 9(A) , No pain 15:05:30 96 14 98 124/75(100) NSR 0 (11) 10(A) , No pain 15:09:48 94 14 98 123/82(106) NSR 0 (11) 10(A) , No pain Medications Time Medication Route Dose Verified Delivered Reason Notes Effe ctiveness by by 14:45:35 Oxygen simple 10 Nicholas Alie used for mask l/min [facility] Villareal RN procedure 14:45:44 Lidocaine 2% added 20ml Nicholas Nicholas for local to vial [facility] anesthetic field MD SANCHEZ 14:46:04 Heparin Flush added 2 Nicholas Nicholas used for Bag to bags [facility] procedure (1000units/500ml field MD SANCHEZ NS) 14:46:15 0.9% NaCl I.V. 100 Nicholas Buffie Per ml/hr [facility] Villareal RN physician 14:46:53 Refer to Nicholas Peterson Anesthesia Notes [facility] for Sedation MD SANCHEZ Medications Procedure Log Time Note 14:11:42 Procedure type changed to Cath procedure, Diagnostic procedure, LHC, LHC w/Coronaries w/Grafts, Miscellaneous Procedures, Moderate Sedation up to 15 minutes 14:12:26 Diagnostic Cath status Elective 14:12:28 Gideon Espinoza RT(R) (CV) sent for patient. Start room use. 14:12:30 Time tracking: Regular hours 14:12:35 Plan of Care:Hemodynamics will remain stable., Cardiac rhythm will remain stable., Comfort level will be maintained., Respiratory function will remain adequate., Patient/ family verbilizes understanding of procedure., Procedure tolerated without complication., Recovers from procedure without complications.. 14:12:47 Patient received from Med II to CCL 3 Alert and oriented. Tansferred to table in Supine position. 14:13:25 H&P Date Dictated: 11/15/2016 Within 30 days and on chart.. 14:13:28 Pre-procedure instructions explained to patient. 14:14:05 Patient allergic to Other allergyDemerol, Morphine, Dilaudid 14:29:42 Warm blankets applied, and lily hugger turned on for patient comfort. 14:29:43 Correct patient and procedure confirmed by team. 14:29:48 Signed procedure consent form obtained from patient. 14:29:50 ECG and BP/O2 sat monitors applied to patient. 14::51 Full Disclosure recording started 14::52 Pre-op teaching completed and patient verbalized understanding. 14:29:53 Family in patients room. 14:38:46 Vital chart was started 14:38:49 Baseline sample Acquired. 14:42:08 Rhythm: paced 14:42:12 Is patient on blood thinner?Yes 14:42:15 ACC The patient was administered the following blood thiners within the last 24 hours: ACCPlavix 14:42:17 Patient diabetic? No. 14:42:20 Previous problem with sedation/anesthesia? No ? 14:42:21 Snore? Yes 14:42:22 Sleep apnea? Yes 14:42:23 Opens mouth fully? Yes 14:42:23 Deviated septum? No 14:42:24 Sticks out tongue? Yes 14:42:25 Airway obstruction? No ? 14:42:28 Dentures? Yes out 14:42:35 Pre procedure: right dorsailis pedis pulse 1+ Palpable, but thready & weak; easily obliterated 14:42:38 Patient pain scale 0/10 ?. 14:42:45 IV patent on arrival in port with 0.9% NaCl at [facility] 14:43:34 Lab Result : Hemoglobin 11.3 g/dl 14:43:34 Lab Result : Hematocrit 35.3 % 14:43:34 Lab Result : BUN 13 mg/dl 14:43:34 Lab Result : Creatinine 1 mg/dl 14:45:35 Oxygen 10 l/min simple mask was administered by Reanna Villareal RN; used for procedure; 14:45:44 Lidocaine 2% 20ml vial added to field was administered by Nicholas Hernandez MD; for local anesthetic; 14:46:04 Heparin Flush Bag (1000units/500ml NS) 2 bags added to field was administered by Nicholas Hernandez MD; used for procedure; 14:46:08 Lab results completed and on chart. 14:46:15 0.9% NaCl 100 ml/hr I.V. was administered by Reanna Villareal RN; Per physician; 14:46:41 Right groin area was prepped with chlora-prep and draped in sterile fashion 14:46:46 Sharps counted by scrub and verified by R.N. 14:46:46 Alarms reviewed by R. N. 14:46:49 Use device set Femoral Dx 14:46:50 Acist Manifold opened to sterile field. 14:46:50 Tegaderm 4 x 4 opened to sterile field. 14:46:51 Acist Hand Control opened to sterile field. 14:46:52 Bag Decanter opened to sterile field. 14:46:52 Acist Syringe opened to sterile field. 14:46:53 Terumo 5Fr Colcord Sheath opened to sterile field. 14:46:53 St Scottie 260cm J .035 wire opened to sterile field. 14:46:53 Refer to Anesthesia Notes for Sedation Medications was administered by Nicholas Hernandez MD; ; 14:46:53 Medline Cath Pack opened to sterile field. 14:46:56 Diagnostic Infinity 5Fr Multipack catheter opened to sterile field. 14:47:03 Physician arrived 14:47:04 Final Timeout: patient, procedure, and site verified with staff and physician. All members of the team are in agreement. 14:47:04 --------ALL STOP TIME OUT------ 14:47:06 Right groin site verified by team. 14:47:08 Physical assessment completed. ASA score P 2 - A patient with mild systemic disease as per Nicholas Hernandez MD. 14:47:11 Sedation plan: IV Moderate Sedation Versed, Fentanyl 14:51:14 Procedure started. 14:51:17 Local anesthetic to right femoral artery with Lidocaine 2% by Nicholas Hernandez MD.INITIAL ACCESS ONLY 14:51:38 A 5 Fr sheath was inserted into the Right Femoral artery 14:51:41 Zero performed for pressure channel P1 14:52:02 Zero performed for pressure channel P1 14:54:31 A Cordis 5Fr JL 4.0 Catheter (MP) was advanced over the wire and used for Procedure. 14:55:35 Catheter exchanged over wire. 14:56:18 A Cordis 5Fr 3DRC Catheter (MP) was advanced over the wire and used for Procedure. 14:56:21 RCA angiography performed. 14:58:38 GARNER to LAD angiography performed. 14:58:52 Catheter exchanged over wire. 14:58:54 A Diagnostic Infinity 5Fr JL 5 catheter was advanced over the wire and used for Procedure. 14:59:59 LCA occluded. 15:00:02 Catheter exchanged over wire. 15:00:06 A Diagnostic Infinity 5Fr AR 2 MOD catheter was advanced over the wire and used for Procedure. 15:00:44 SVG to RCA occluded. 15:00:50 Catheter exchanged over wire. 15:00:54 A Cordis 5Fr Pigtail Catheter (MP) was advanced over the wire and used for Procedure. 15:03:33 LV gram done using AGUAYO 15:03:37 Injector settings: Ml/sec: 10., Volume: 20, 15:03:55 LV hemodynamics recorded. 15:03:59 EF : 15 % 15:04:02 Catheter removed. 15:04:08 Cordis 5Fr Exoseal opened to sterile field. 15:04:19 Sheath removed intact; hemostasis achieved with Exoseal to the Right Femoral artery. 15:04:22 Procedure ended.(Physican Out) 15:06:42 Fluoroscopy time 05.30 minutes. 15:07:02 Fluoroscopy dose: 311.93 mGy 15:07:02 Flurop Dose total: 311.93 15:07:16 Contrast amount:Isovue 300 98ml. 15:07:17 Sharps counted by scrub and verified by R.N. 15:10:45 Insertion/operative site no bleeding no hematoma. 15:10:47 Post-op/insertion site Right Femoral artery dressed using a 4 x 4 and Tegaderm. 15:10:51 Post right femoral artery:stable, soft, clean and dry 15:10:52 Post Procedure Pulses reassessed and unchanged 15:10:55 Post-procedure physical assessment completed. ASA score P 2 - A patient with mild systemic disease as per Nicholas Hernandez MD. 15:10:58 Post procedure rhythm: unchanged. 15:11:01 Estimated blood loss: 5 ml 15:11:04 Patient needs reinforcement of post procedure teaching. 15:11:04 Post procedure instruction explained to patient.Patient verbalizes understanding. 15:12:29 Procedure and supply charges have been captured, reviewed, submitted and are correct. 15:12:42 Vital chart was stopped 15:12:43 See physician's report for complete and final results. 15:12:47 Report given to PCU. 15:12:49 Patient transfered to PCU with Stretcher. 15:12:54 Full Disclosure recording stopped 15:12:54 Procedure ended. 15:12:59 End room use (Document Last) Device Usage Item Name Manufacture Quantity Catalog Hospital Part Current Minimal Lo t# / Number Charge Number Stock Stock Serial# Code Tegaderm 4 1 [id number] [id number] [id number] 5 x 4 Acist Acist 1 39185 696467 138626 122454 5 Manifold [employer] Inc Acist Hand Acist 1 56759 612816 749051 843893 5 Control Medical Systems Inc Acist Acist 1 06346 423180 842417 042167 20 Syringe Medical Systems Inc Bag Microtek 1 2002S 205566 22309 927448 5 Decanter Medical Inc. Medline Cardinal 1 [id number] 993489 74965 477156 5 Cath Pack Health Terumo 5Fr Terumo 1 BGL005 524169 097478 120826 [address] [facility] St Scottie 1 327692 985277 900252 290778 30 260cm J .035 wire Diagnostic Cardinal 1 HR4075 488053 43556 507118 30 Burpple [employer] 5Fr Multipack catheter Cordis 5Fr Cardinal 1 630308 5 JL 4.0 Health Catheter (MP) Cordis 5Fr Cardinal 1 975033 5 3DRC Health Catheter (MP) Diagnostic Cardinal 1 [id number] 835054 322400 633257 5 InfinBalaBit Health 5Fr JL 5 catheter Diagnostic Cardinal 1 [id number] 293015 725143 531320 20 [employer]pple [facility] 5Fr AR 2 MOD catheter Cordis 5Fr Cardinal 1 885811 5 Pigtail Health Catheter (MP) Cordis 5Fr Cardinal 1 EX500 773450 640812 624673 10 Personal [employer] Sciences Signature Audit [place] Stage Time Signature Unsigned Intra-Procedure 11/17/2016 Salazar Mendez RT(R) 3:13:46 PM RT(R) 11/17/2016 3:17:15 PM Intra-Procedure 11/17/2016 Salazar Mendez 3:17:37 PM RT(R) Signatures Monitor : Salazar Mendez RT Signature : Date : Time : [facility] [address] [place] [address]
[2016-11-15 00:44] LABS: BASOPHILS 0.1 % (0-2); EOSINOPHILS 1.1 % (0-7); HEMATOCRIT 38.2 % (42.0-54.0); HEMOGLOBIN 12.6 g/dL (13.5-17.5); IMMATURE GRANULOCYTES 0.1 % (0-5); LYMPHOCYTES 30.6 % (15-50); MCH 29.7 pg (26.0-34.0); MCV 90.1 fL (80.0-100.0); MEAN PLATELET VOLUME 9.2 fL (7.4-10.4); MONOCYTES 7.9 % (2-11); NEUTROPHILS 60.2 % (40-80); PLATELET COUNT 179 10x3/uL (130-400); RBC 4.24 10x6/uL (4.20-6.10); RDW 14.9 % (11.5-14.5); WBC 7.4 10x3/uL (4.8-10.8)
[2016-11-15 01:01] LABS: ALBUMIN 3.5 g/dL (3.4-5.0); ALKALINE PHOSPHATASE 88 U/L (46-116); ALT (SGPT) 31 U/L (10-68); BILIRUBIN - TOTAL 0.58 mg/dL (0.2-1.3); CALCIUM 8.2 mg/dL (8.5-10.1); CARBON DIOXIDE 23.8 mmol/L (21.0-32.0); CHLORIDE - SERUM 101 mmol/L (98-107); CREATININE - SERUM 1.1 mg/dL (0.6-1.3); PROTEIN - SERUM 7.6 g/dL (6.4-8.2); SODIUM 136 mmol/L (136-145); UREA NITROGEN 15 mg/dL (7-18); eGFR NON AFRICAN AMERICAN 70 mL/min (90-120)
[2016-11-15 01:02] LABS: CALC OSMOLALITY 278 mosm/kg (275-300); GLUCOSE 215 mg/dL (74-106)
[2016-11-15 01:03] LABS: POTASSIUM - SERUM 2.9 mmol/L (3.5-5.1)
[2016-11-15 01:10] LABS: CHOL - HDL RATIO 4.7 ratio (2.3-4.9); CHOLESTEROL, TOTAL 193 mg/dL (0-200); CKMB 1.3 U/L (0.0-3.6); CREATINE KINASE 156 UL (21-232); HDL CHOLESTEROL 41 mg/dL (32-96); LDL CHOLESTEROL 118 mg/dL (0-100); LDL-HDL RATIO 2.9 ratio (1.5-3.5); TRIGLYCERIDE 170 mg/dL (30-200); TROPONIN-I 0.024 ng/mL (0.000-0.060)
--- NOTE | 2016-11-15 03:18 | NUR ---
PT ARRIVED VIA STRETCHER FROM ER. NO DISTRESS NOTED. WILL CONTINUE TO MONITOR.
[2016-11-15 03:41] VITALS: BP 123/58; Ht 172.7 cm; Wt 104.5 kg
[2016-11-15] MEDS ORDERED: COUMADIN2.5 MG PO (03:56)
--- NOTE | 2016-11-15 03:59 | NUR ---
ADMISSION ASSESSMENT, HISTORY AND HOME MED LIST COMPLETED. PT DENIES ANY DISCOMFORT. VSS. SR WITH BBB PER CM HR 98. WILL CONTINUE TO MONITOR. SR UP X2,CALL LIGHT WITHIN REACH.
[2016-11-15 04:00] VITALS: BP 123/58
--- NOTE | 2016-11-15 04:53 | NUR ---
PT RESTING WITH EYES CLOSED. RESP EVEN AND REGULAR. SR UP X2, CALL LIGHT WITHIN REACH.
--- NOTE | 2016-11-15 06:04 | NUR ---
SR WITH BBB PWR CM. PT HAS RESTED WITH EYES CLOSED. SINCE ADMISSION. NEEDS MET; WILL CONTINUE TO MONITOR.
--- NOTE | 2016-11-15 07:00 | NUR ---
INITIAL ROUNDS MADE. PT LYING IN BED RESTING WELL WITH EYES CLOSED, NO DISTRESS NOTED. CALL LIGHT IN REACH. WILL CONT TO MONITOR.
[2016-11-15 08:00] VITALS: BP 106/57
[2016-11-15 12:00] VITALS: BP 98/54
--- NOTE | 2016-11-15 13:35 | NUR ---
UNABLE TO TO OBTAIN BLOOD RETURN FOR LAB DRAW. RIGHT CHEST INFUSAPORT REACCESSED AT THIS TIME PER GABBY JACOBO FROM MED SURG. 1.5 INCH SANTORO NEEDLE USED, GOOD FLUSH AND BLOOD RETURN. LAB DRAW OBTAINED AND TAKEN TO LAB.
[2016-11-15 13:57] LABS: INR 2.04 (0.85-1.17)
[2016-11-15 14:12] LABS: TROPONIN-I 0.023 ng/mL (0.000-0.060)
[2016-11-15 16:00] VITALS: BP 107/69
--- NOTE | 2016-11-15 18:31 | NUR ---
SITTING UP ON SIDE OF BED, NO NEEDS OR C/O AT THIS TIME.
[2016-11-15 20:00] VITALS: BP 118/69
--- NOTE | 2016-11-15 20:00 | NUR ---
PT RESTING IN BED WITH NO DISTRESS. O2 @ 4L/NC. NS + 40K @ 75ML/HR INFUSING TO ACCESSED PORT. SEE SHIFT ASSESSMENT. MONITOR AND CPOC.
--- NOTE | 2016-11-15 21:55 | NUR ---
HS MEDS GIVEN.
--- NOTE | 2016-11-16 05:08 | NUR ---
BLOOD COLLECTED FROM RIGHT CHEST WALL PORT FOR AM LABS. PT RESTING, NO DISTRESS. IVF INFUSING. MONITOR AND CPOC.
[2016-11-16 06:12] LABS: HEMATOCRIT 35.3 % (42.0-54.0); HEMOGLOBIN 11.3 g/dL (13.5-17.5); MCV 93.6 fL (80.0-100.0); MEAN PLATELET VOLUME 9.2 fL (7.4-10.4); PLATELET COUNT 169 10x3/uL (130-400); RBC 3.77 10x6/uL (4.20-6.10); RDW 15.4 % (11.5-14.5); WBC 4.1 10x3/uL (4.8-10.8)
[2016-11-16 06:37] LABS: CALCIUM 8.1 mg/dL (8.5-10.1); CARBON DIOXIDE 27.1 mmol/L (21.0-32.0); CHLORIDE - SERUM 108 mmol/L (98-107); SODIUM 141 mmol/L (136-145); UREA NITROGEN 13 mg/dL (7-18); eGFR NON AFRICAN AMERICAN 79 mL/min (90-120)
[2016-11-16 06:38] LABS: CALC OSMOLALITY 281 mosm/kg (275-300); GLUCOSE 110 mg/dL (74-106); POTASSIUM - SERUM 4.8 mmol/L (3.5-5.1)
[2016-11-16 06:40] LABS: INR 2.59 (0.85-1.17); PROTIME 27.9 SECONDS (11.6-15.0)
[2016-11-16 07:07] LABS: EOSINOPHILS 3 % (0-7); LYMPHOCYTES 54 % (15-50); MONOCYTES 16 % (2-11); NEUTROPHILS 26 % (40-80); PLATELET ESTIMATE NORMAL
[2016-11-16 07:08] LABS: ANISOCYTOSIS OCC; CRENATED CELLS OCC
[2016-11-16 08:00] VITALS: BP 102/70
--- NOTE | 2016-11-16 08:00 | NUR ---
TELEMETRY SR. RESP UL ON 02 2L OH. CONSENTS SIGNED FOR [facility]. PRE-OPS GIVEN. WILL CONT. PLAN OF CARE.
--- NOTE | 2016-11-16 09:32 | NUR ---
PT INR CALLED TO DR. STARKEY. HC CANCELED. NEW ORDERS GIVEN. WILL MONITOR.
--- NOTE | 2016-11-16 10:04 | NUR ---
UP TO CHAIR EATING BRK. WILL MONITOR NEEDS.
[2016-11-16 12:46] VITALS: BP 111/67
[2016-11-16 16:00] VITALS: BP 99/69
--- NOTE | 2016-11-16 19:51 | NUR ---
ALERT/ORIENTED AND RESTING IN BED. HEART CATH HAS BEEN SCHEDULED FOR TOMORROW IF INR IS AN ACCEPTABLE RANGE. RIGHT IP SALINE LOCKED. SR W/BBB PER TELEMETRY. CHRONIC PAIN ISSUES, REQUESTS PAIN PILL WHEN NEXT AVAILABLE. SEE ASSESSMENT. CPOC.
[2016-11-16 20:00] VITALS: BP 98/51
--- NOTE | 2016-11-16 21:47 | NUR ---
ADJUSTED ROOM TEMP BEDTIME MEDS GIVEN. PAIN PILL FOR CHRONIC PAIN ISSUES.
--- NOTE | 2016-11-16 22:50 | NUR ---
PT AWAKENED FROM SLEEPING WITH PAIN AND LOW GRADE TEMP. MEDICATED WITH TYLENOL 1000MG BY MOUTH + MORPHINE 4MGS IV + ZOFRAN 4MG SIVP. AT BEDSIDE. WILL MONITOR.
[2016-11-17] VITALS: BP 112/52
--- NOTE | 2016-11-17 03:27 | NUR ---
PT RESTING IN BED WITH NO DISTRESS. CPOCL
[2016-11-17 04:00] VITALS: BP 151/67
--- NOTE | 2016-11-17 05:41 | NUR ---
BLOOD COLLECTED FROM RIGHT IMPLANTED PORT FOR AM LABS. PT HAS BEEN NPO SINCE MIDNIGHT FOR POSSIBLE HEART CATH THIS AM.
[2016-11-17 07:06] LABS: INR 1.51 (0.85-1.17); PROTIME 18.2 SECONDS (11.6-15.0)
[2016-11-17 11:00] VITALS: BP 100/52
[2016-11-17 12:43] VITALS: BP 101/60
--- NOTE | 2016-11-17 14:12 | NUR ---
PRE-OPS GIVEN. TO CHARCOAL KILN BURNER BY BED.
--- NOTE | 2016-11-17 15:33 | NUR ---
BACK FROM INSTRUCTIONAL SPECIALIST. VS WNL. RIGHT GROIN STABLE WITHOUT BLEEDING OR HEMATOMA NOTED. WILL MONITOR.
--- NOTE | 2016-11-17 16:11 | CN ---
PATIENT NAME:THADDEUS WEAVER MEDICAL RECORD: [id number] : 49 LOCATION:. D.2114 ADMIT DATE: 11/15/16 ACCOUNT: [id number] CONSULTING PHYSICIAN: KARLA GASTON MD REFERRING PHYSICIAN: ANGEL SMITH DO DATE OF CONSULTATION: 11/15/2016 CARDIOLOGY CONSULTATION HISTORY OF PRESENT ILLNESS: A 71-year-old gentleman with a history of coronary artery disease, most recently intervention on June, saphenous vein graft to the right, been having intermittent chest pain, nausea, vomiting, fatigue, dizziness, multiple constitutional symptomatologies, recently had passing of fiancee with yesterday, noted to be hypokalemic. We are asked to see him concerning his cardiovascular status. PAST MEDICAL HISTORY: Includes: 1. History of coronary artery disease as described above. 2. Ischemic cardiomyopathy, EF 30%. 3. Dyslipidemia. 4. Gastroesophageal reflux disease. 5. Anxiety. ALLERGIES: DEMEROL, MORPHINE, DILAUDID. MEDICATIONS: Include Plavix 75 q. day, Coumadin 2.5 q. day, atorvastatin 80 q. day, carvedilol 6.25 q. day, aspirin 81 daily, [place] 10/325 q. 6 p.r.n., Seroquel 1200 mg q.h.s., Wellbutrin 75 b.i.d., trazodone 300 q.h.s., Lasix 40 q. day, Zantac 300 q. day. SOCIAL HISTORY: As stated above. More stress as of late. He is a nonsmoker. No set exercise program. REVIEW OF SYSTEMS: The patient reports easy bruising but reports no swollen glands. The patient reports no fever, no night sweats, no significant weight gain, no significant weight loss. No significant exercise tolerance. The patient reports no dry eyes, no irritation, no vision change. Patient reports no difficulty hearing and no ear pain. Patient reports no frequent nose bleeds or nose and sinus problems. Patient reports on arm pain on exertion. No shortness of breath while lying down. No history of heart murmur. Patient reports no cough, no wheezing or coughing up blood. Patient reports no abdominal pain, no vomiting. Normal appetite. No diarrhea and not vomiting blood. No nausea and no constipation. Patient reports no incontinence. No difficulty urinating. No hematuria. No increased frequency. Patient reports no muscle aches. No weakness, no arthralgias, no back pain. No swelling of the extremities. Patient reports no abnormal mole, no jaundice, no rashes. Reports no loss of consciousness. No weakness and no numbness. No seizures, dizziness, or headaches. The patient reports no depression, no sleep disturbance, feeling safe in a relationship and no alcohol abuse. Patient reports on fatigue. Reports no runny nose or sinus pressure. No itching, no hives, and no frequent sneezing. PHYSICAL EXAMINATION: GENERAL: Pleasant gentleman, in no acute distress. CONSULT REPORT [id number] THADDEUS WEAVER VITAL SIGNS: Blood pressure 106/54, pulse is 80. HEENT: Normocephalic and atraumatic. NECK: No JVD or bruit. HEART: Regular, II/ systolic ejection murmur, questionable S3 gallop. LUNGS: Fair air excursion. ABDOMEN: Soft and nontender. EXTREMITIES: Pulse 2+. No edema. DIAGNOSTIC DATA: Serial enzymes and ECGs thus far that shows no acute changes. IMPRESSION: Suspect this may be more anxiety/stress, agree with repeating enzymes. Further recommendations based on clinical course. TRANSINT:[id number] Voice Confirmation ID: [id number] DOCUMENT ID: [id number] 11/17/2016 Edited to fill in guzman lowry. KARLA GASTON MD at 1611 CC: [id number] DICTATION DATE: 11/15/1640 ASSEMBLY ASSOCIATE: 11/15/16 1859 ADM IN [place] [id number] [place] [address]
[2016-11-17 16:50] VITALS: BP 103/39
--- NOTE | 2016-11-17 17:27 | NUR ---
BED REST UP. GROIN STABLE.
[2016-11-17 19:56] VITALS: BP 103/62
--- NOTE | 2016-11-17 20:04 | NUR ---
PT RESTING IN BED. ALERT/ORIENTED. RIGHT IMPLANTED PORT SALINE LOCKED. DRESSING TO RIGHT GROIN CATH SITE C/D/I. SEE ASSESSMENT. CPOC.
--- NOTE | 2016-11-17 21:04 | NUR ---
BEDTIME MEDS GIVEN. PAIN PILL GIVEN.
[2016-11-18 00:17] VITALS: BP 96/46
--- NOTE | 2016-11-18 02:41 | NUR ---
RESTING IN BED WITH NO DISTRESS. O2 @ 3L/NC WITH NONLABORED RESPIRATIONS. CALL LIGHT IN REACH. MONITOR AND CPOC.
[2016-11-18 04:00] VITALS: BP 115/59
[2016-11-18 06:29] LABS: INR 1.21 (0.85-1.17); PROTIME 15.1 SECONDS (11.6-15.0)
--- NOTE | 2016-11-18 12:07 | NUR ---
IV AND TELEMTRY DCD. DC PLANS GIVEN. UNDERSTANDING VOICED. ESCORTED TO TAXI BY W/C.
--- NOTE | 2016-11-18 14:41 | OP ---
PATIENT NAME: THADDEUS WEAVER MEDICAL RECORD: [id number] :49 LOCATION:D.M2 D.2114 ADMISSION DATE:11/15/16 SURGEON: KARLA GASTON MD DATE OF OPERATION: 11/17/2016 PROCEDURE: Left heart catheterization, selective coronary angiography, right femoral approach. CATHETERS: A 5-Pashto sheath, 5/4 left and right Melanie, 5/4 pig. The procedure was well tolerated and the patient returned to cash. Sheath removed. ExoSeal device placed. FINDINGS: Left ventriculography in 30-degree AGUAYO view shows severe global hypokinesis, EF estimated at 10-15%. CORONARY ANATOMY: LEFT MAIN: Left main is totally occluded. LAD: LAD is totally occluded. CIRCUMFLEX: Circumflex is totally occluded. RIGHT CORONARY ARTERY: The PD branch is widely patent throughout its course. BYPASS GRAFTS: 1. Saphenous vein graft to the PL branch is widely patent throughout its course with no evidence of restenosis. 2. GARNER to LAD is patent throughout its course without evidence of post-anastomotic stenosis. IMPRESSION: Noncardiac etiology of chest pain with widely patent stents. TRANSINT:[id number] Voice Confirmation ID: [id number] DOCUMENT ID: [id number] KARLA GASTON MD at 1441 CC: [id number] DICTATION DATE: 11/17/16 1522 MOTOR POWER CONNECTOR: 11/17/16 193 DIS IN 11/18/16 [facility] [address] [place] [address]
== END 2016-11-18 12:07 | disposition home or self-care (01) ==
LOC: D.ER 00:20 → D.M2 02:52 → OBSVTIME 02:52 → D.M2 11-18 12:07
PROVIDERS: Emergency Medicine; ADMIT Family Medicine
DX: R07.89 Other chest pain (principal); I25.10 Atherosclerotic heart disease of native coronary artery without angina pectoris; Z95.5 Presence of coronary angioplasty implant and graft; I25.5 Ischemic cardiomyopathy; E78.5 Hyperlipidemia, unspecified; K21.9 Gastro-esophageal reflux disease without esophagitis; F41.9 Anxiety disorder, unspecified; E11.65 Type 2 diabetes mellitus with hyperglycemia; E87.6 Hypokalemia; Z95.0 Presence of cardiac pacemaker; I50.9 Heart failure, unspecified; Z87.891 Personal history of nicotine dependence

== ENCOUNTER 2017-01-11 14:41 | Emergency (ER) | payer BC, MEDICARE ==
[2016-11-15 03:41] VITALS: BMI 28.6
[2017-01-11 16:28] LABS: BASOPHILS 0.4 % (0-2); EOSINOPHILS 2.3 % (0-7); HEMATOCRIT 28.1 % (42.0-54.0); HEMOGLOBIN 9.6 g/dL (13.5-17.5); IMMATURE GRANULOCYTES 0.2 % (0-5); LYMPHOCYTES 29.6 % (15-50); MCH 31.9 pg (26.0-34.0); MCHC 34.2 g/dL (31.0-37.0); MCV 93.4 fL (80.0-100.0); MEAN PLATELET VOLUME 9.1 fL (7.4-10.4); MONOCYTES 13.2 % (2-11); NEUTROPHILS 54.3 % (40-80); PLATELET COUNT 184 10x3/uL (130-400); RBC 3.01 10x6/uL (4.20-6.10); RDW 15.7 % (11.5-14.5); WBC 5.1 10x3/uL (4.8-10.8)
[2017-01-11 16:48] LABS: ANION GAP 9.9 mmol/L (8-16); CALCIUM 7.5 mg/dL (8.5-10.1); CARBON DIOXIDE 26.8 mmol/L (21.0-32.0); CREATININE - SERUM 1.1 mg/dL (0.6-1.3); POTASSIUM - SERUM 3.7 mmol/L (3.5-5.1); URIC ACID 4.9 mg/dL (2.6-7.2)
== END 2017-01-11 17:49 | disposition home or self-care (01) ==
LOC: D.ER 14:41
PROVIDERS: Nurse Practitioner Acute Care
DX: M25.562 Pain in left knee (principal); I10 Essential (primary) hypertension

== ENCOUNTER → 2017-02-03 13:19 | Outpatient (CLI) | payer BC, MEDICARE ==
[2016-11-15 03:41] VITALS: BMI 28.6
[~2017-02-03 13:19] MED LIST changes: +FLORAJEN3 CAPS460 MG PO; +K-DUR20 MEQ PO; +K-TAB10 MEQ PO; +OMNICEF300 MG PO; +PREDNISONE10 MG PO
== END | disposition home or self-care (01) ==
LOC: D.US 13:19
DX: N60.02 Solitary cyst of left breast (principal)

== ENCOUNTER 2017-02-18 08:41 | Outpatient (CLI) | payer BC, MEDICARE ==
[~2017-02-18 08:41] MED LIST changes: -FLORAJEN3 CAPS460 MG PO; -K-DUR20 MEQ PO; -K-TAB10 MEQ PO; -OMNICEF300 MG PO; -PREDNISONE10 MG PO
[2017-02-18 10:32] VITALS: BMI 37.0
--- NOTE | 2017-02-18 10:40 | NUR ---
1035 NICOLE MON R.N. TRIED ACCESSING RT CHEST PORT WITH 19 SANTORO NEEDLE 1 INCH UNSUCCESSFUL WITH STERILE TECHNIQUE. ACCESSED RT PORT OBTAINED BLOOD AND FLUSHED PORT.
--- NOTE | 2017-02-18 10:54 | NUR ---
1053 DISCHARGED TO HOME. REQUESTED WHEELCHAIR TO TAKE TO FRONT.
--- NOTE | 2017-02-18 10:54 | NUR ---
1054 LEFT VIA W/C HAS DISCHARGE INSTRUCTIONS.
== END 2017-02-18 10:54 | disposition home or self-care (01) ==
LOC: D.US 08:41
DX: N63.0 Unspecified lump in unspecified breast (principal)

== ENCOUNTER 2017-02-21 21:32 | Inpatient (IN) | payer BC, MEDICARE ==
[~2017-02-21] VITALS: Ht 172.7 cm; Wt 106.8 kg
--- NOTE | ~2017-02-21 | HEMODYNAMI ---
PATIENT:THADDEUS WEAVER MEDICAL RECORD: [id number] : [birth year] LOCATION:[address] [id number] ADMISSION DATE: 02/22/17 Generatedon:02/24/201712:14 Patient name: THADDEUS WEAVER Patient #: [id number] SSN: : 1945 Date of study: 02/24/2017 Page: Of Hemodynamic Procedure Report Patient Data Patient Demographics Procedure consent was obtained First Name: THADDEUS Gender: Male Last Name: MEG : 1945 [facility] Initial: T Age: 71 year(s) Patient #: [id number] Race: Additional ID: [id number] Contact details [address]: [address] [place] [address] [address] State: [place] City: [place] Zip code: [address] Past Medical History History of disease Date Diagnosis Comments CAD Allergies Allergen Reaction Date Comments Reported Demerol 05/21/2014 Morphine 07/15/2015 Demerol 06/23/2016 Morphine 06/23/2016 Other allergy 06/23/2016 DILAUDID Other allergy 11/17/2016 Demerol, Morphine, Dilaudid Admission Admission Data Admission Date: 02/22/2017 Admission Time: 12:50 Room #: D.2123 Lab Results Lab Result Date: 02/24/2017 Lab Result Time: 0:00 Biochemistry Name Units Result Min Max BUN mg/dl 26 --(----)-* 7 18 Creatinine mg/dl 1.2 --(---*)-- 0.6 1.3 CBC Name Units Result Min Max Hematocrit % 35.4 *-(----)-- 42 54 Hemoglobin g/dl 11.4 *-(----)-- 13.5 17.5 Procedure Procedure Types Cath Procedure Diagnostic Procedure [facility] w/Coronaries w/Grafts FFR/IVUS Intra-Coronary IVUS Initial Intra-Coronary IVUS Additional PCI Procedure Coronary Stent Initial Miscellaneous Procedures Moderate Sedation up to 30 minutes Procedure Description Procedure Date Procedure Date: 02/24/2017 Procedure Start Time: 11:48 Procedure End Time: 12:11 Procedure Staff Name Function Ilya Mackey MD Performing Physician Bindu Oates RT Scrub Landon Bear RN Nurse Ludwin Ceron RT Monitor Procedure Data Cath Procedure Fluoroscopy Diagnostic fluoroscopy Total fluoroscopy Time: 6.5 time: 6.5 min min Diagnostic fluoroscopy Total fluoroscopy dose: 321 dose: 321 mGy mGy Contrast Material Contrast Material Type Amount (ml) Isovue 300 92 Entry Location Entry Primary Successful Side Size Upsize Upsize Entry Closure Succes sful Closure Location (Fr) 1 (Fr) 2 (Fr) Remarks Device Remarks Femoral Right 5 Fr 6 Fr Exoseal artery Short Estimated blood loss: 10 ml Diagnostic catheters Device Type Used For End Catheter Placement Cordis 5Fr Pigtail Procedure Catheter (MP) Cordis 5Fr 3DRC Catheter Procedure (MP) Procedure Complications No complications Procedure Medications Medication Administration Route Dosage Oxygen NC 2 l/min Heparin Flush Bag added to field 2 bags (1000units/500ml NS) 0.9% NaCl I.V. ml/hr Fentanyl I.V. 50 mcg Versed I.V. 1 mg Fentanyl I.V. 50 mcg Versed I.V. 1 mg Dobutamine I.V. drip (500mg/250ml D5W) Fentanyl I.V. 50 mcg Versed I.V. 1 mg Heparin Bolus I.V. 4000 units Fentanyl I.V. 50 mcg Versed I.V. 1 mg Hemodynamics Rest HGB: 11.4 (g/dl) Heart Rate: 100 (bpm) Snapshots Pre Cath Intra NCS Post Cath Vital Signs Time Heart Resp SPO2 etCO2 NIBP (mmHg) Rhythm Pain Sedation Rate (ipm) (%) (mmHg) Status Level (bpm) 11:34:22 98 16 96 35.5 147/86(116) NSR 0 (11) 10(A) , No pain 11:38:46 99 16 93 36.3 145/91(122) NSR 0 (11) 10(A) , No pain 11:43:08 95 17 95 35.5 133/90(118) NSR 0 (11) 10(A) , No pain 11:47:30 95 17 93 37.7 131/88(109) NSR 0 (11) 10(A) , No pain 11:51:52 78 16 84 29.4 114/81(101) NSR 0 (11) 10(A) , No pain 11:56:11 92 18 91 32.4 113/73(91) NSR 0 (11) 9(A) , No pain 12:00:27 91 18 93 24.1 113/75(89) NSR 0 (11) 9(A) , No pain 12:04:36 91 19 94 34.7 112/79(99) NSR 0 (11) 9(A) , No pain 12:07:53 93 16 95 34 108/76(92) NSR 0 (11) 9(A) , No pain 12:12:05 9.8 No Cuff NSR 0 (11) 9(A) , No pain Medications Time Medication Route Dose Verified Delivered Reason Notes Effectiveness by by 11:34:28 Oxygen NC 2 l/min Ilya Navarrete Per physician Narendra Bear RN 11:34:41 Heparin Flush added 2 bags Ilya Navarrete used for Bag to Narendra Bear RN procedure (1000units/500ml field NS) 11:34:50 0.9% NaCl I.V. ml/hr Ilya Navarrete Per physician Narendra Bear RN 11:46:38 Fentanyl I.V. 50 mcg Ilya Navarrete for sedation Narendra Bear RN 11:46:44 Versed I.V. 1 mg Ilya Navarrete for sedation Narendra Bear RN 11:49:58 Fentanyl I.V. 50 mcg Ilya Navarrete for sedation Narendra Bear RN 11:50:02 Versed I.V. 1 mg Ilya Navarrete for sedation Narendra Bear RN 11:51:07 Dobutamine I.V. discontinued Ilya Navarrete Per physician (500mg/250ml drip Narendra Bear RN D5W) 11:55:08 Fentanyl I.V. 50 mcg Ilya Navarrete for sedation Narendra Bear RN 11:55:12 Versed I.V. 1 mg Ilya Navarrete for sedation Narendra Bear RN 11:58:04 Heparin Bolus I.V. 4000 units Ilya Navarrete for Narendra Bear RN anticoagulation 11:58:28 Fentanyl I.V. 50 mcg Ilya Navarrete for sedation Tauth MD Bear RN 11:58:31 Versed I.V. 1 mg Ilya Navarrete for sedation Narendra Bear french comber Log Time Note 10:54:49 Ludwin Ceron RT(R) sent for patient. Start room use. 10:54:53 Time tracking: Regular hours 10:54:56 Plan of Care:Hemodynamics will remain stable., Cardiac rhythm will remain stable., Comfort level will be maintained., Respiratory function will remain adequate., Patient/ family verbilizes understanding of procedure., Procedure tolerated without complication., Recovers from procedure without complications.. 10:56:33 Lab Result : BUN 26 mg/dl 10:56:33 Lab Result : Creatinine 1.2 mg/dl 10:56:33 Lab Result : Hematocrit 35.4 % 10:56:33 Lab Result : Hemoglobin 11.4 g/dl 10:56:47 H&P Date Dictated: 02/22/2017 Within 30 days and on chart., H&P Addendum completed by physician on day of procedure. (MUST COMPLETE FOR ALL OUTPATIENTS). 11:08:31 Patient received from Pre/Post Procedure Room to CCL 1 Alert and oriented. Tansferred to table in Supine position. 11:08:32 Warm blankets applied, and lily hugger turned on for patient comfort. 11:08:32 Correct patient and procedure confirmed by team. 11:08:34 Signed procedure consent form obtained from patient. 11:08:35 ECG and BP/O2 sat monitors applied to patient. 11:11:18 Is patient on blood thinner?Yes 11:11:54 warfarin held 02/21/2017 11:33:03 Vital chart was started 11:33:04 Baseline sample Acquired. 11:33:08 Rhythm: sinus rhythm 11:33:09 Full Disclosure recording started 11:33:10 Pre-procedure instructions explained to patient. 11:33:11 Pre-op teaching completed and patient verbalized understanding. 11:33:16 Family in patients room. 11:33:17 Patient NPO since Midnight. 11:33:19 Is the patient allergic to Iodine/contrast media? No. 11:33:28 Patient diabetic? No. 11:33:32 Previous problem with sedation/anesthesia? No ? 11:33:33 Snore? No 11:33:34 Sleep apnea? No 11:33:35 Deviated septum? No 11:33:36 Opens mouth fully? Yes 11:33:37 Sticks out tongue? Yes 11:33:38 Airway obstruction? No ? 11:33:41 Dentures? Yes IN 11:34:28 Oxygen 2 l/min NC was administered by Landon Bear RN; Per physician; 11:34:41 Heparin Flush Bag (1000units/500ml NS) 2 bags added to field was administered by Landon Bear RN; used for procedure; 11:34:50 0.9% NaCl ml/hr I.V. was administered by Landon Bear RN; Per physician; 11:36:12 Pre procedure: right dorsailis pedis pulse 1+ Palpable, but thready & weak; easily obliterated 11:36:15 Patient pain scale 0/10 ?. 11:36:24 IV patent on arrival in port with 0.9% NaCl at [facility]. 11:36:28 Lab results completed and on chart. 11:36:32 Right groin area was prepped with chlora-prep and draped in sterile fashion 11:36:33 Alarms reviewed by R. N. 11:36:34 Sharps counted by scrub and verified by R.N. 11:46:10 --------ALL STOP TIME OUT------ 11:46:11 Final Timeout: patient, procedure, and site verified with staff and physician. All members of the team are in agreement. 11:46:12 Right groin site verified by team. 11:46:15 Physical assessment completed. ASA score P 2 - A patient with mild systemic disease as per Ilya Mackey MD. 11:46:19 Sedation plan: IV Moderate Sedation Versed, Fentanyl 11:46:38 Fentanyl 50 mcg I.V. was administered by Landon Bear RN; for sedation; 11:46:44 Versed 1 mg I.V. was administered by Landon Bear RN; for sedation; 11:48:39 Use device set Femoral Dx 11:48:40 Tegaderm 4 x 4 opened to sterile field. 11:48:41 Acist Hand Control opened to sterile field. 11:48:41 Acist Manifold opened to sterile field. 11:48:43 Acist Syringe opened to sterile field. 11:48:43 Bag Decanter opened to sterile field. 11:48:44 Medline Cath Pack opened to sterile field. 11:48:44 Terumo 5Fr [place] Sheath opened to sterile field. 11:48:44 St Scottie 260cm J .035 wire opened to sterile field. 11:48:46 Cook 18G 7cm Percutaneous Entry needle opened to sterile field. 11:48:46 Diagnostic Infinity 5Fr Multipack catheter opened to sterile field. 11:48:51 Procedure started. 11:48:55 Local anesthetic to right femoral artery with Lidocaine 2% by Ilya Mackey MD.INITIAL ACCESS ONLY 11:49:58 Fentanyl 50 mcg I.V. was administered by Landon Bear RN; for sedation; 11:50:02 Versed 1 mg I.V. was administered by Landon Bear RN; for sedation; 11:50:13 A 5 Fr sheath was inserted into the Right Femoral artery 11:50:19 A Cordis 5Fr Pigtail Catheter (MP) was advanced over the wire and used for Procedure. 11:51:07 Dobutamine (500mg/250ml D5W) discontinued I.V. drip was administered by Landon Bear RN; Per physician; 11:51:11 LV angiography performed. 11:51:13 LV gram done using AGUAYO 11:51:18 EF : 30 % 11:51:29 Injector settings: Ml/sec: 10, Volume: 20, 11:51:32 Catheter removed. 11:51:36 A Cordis 5Fr 3DRC Catheter (MP) was advanced over the wire and used for Procedure. 11:52:33 GARNER to LAD angiography performed. 11:53:03 RCA angiography performed. 11:53:42 Terumo 6Fr [place] Sheath opened to sterile field. 11:53:42 Ama Sci PT Graphix J 182cm 0.014 guide wire opened to sterile field. 11:53:42 Merit BasixCompak Inflation Kit opened to sterile field. 11:53:53 [place] Eagleye IVUS Catheter opened to sterile field. 11:54:11 Catheter removed. 11:55:08 Fentanyl 50 mcg I.V. was administered by Landon Bear RN; for sedation; 11:55:12 Versed 1 mg I.V. was administered by Landon Bear RN; for sedation; 11:56:04 Sheath upsized to a 6 Fr Short. 11:56:06 Medtronic Launcher 6Fr AR 2.0 guide catheter opened to sterile field. 11:56:15 6 Fr AR 2 guide catheter was inserted over the wire 11:56:55 SVG to RPDA angiography performed. 11:58:04 Heparin Bolus 4000 units I.V. was administered by Landon Bear RN; for anticoagulation; 11:58:28 Fentanyl 50 mcg I.V. was administered by Landon Bear RN; for sedation; 11:58:31 Versed 1 mg I.V. was administered by Landon Bear RN; for sedation; 11:58:35 PT Graphix wire advanced. 11:58:50 Wire advanced across lesion. 12:00:07 IVUS catheter advanced over wire. 12:00:34 IVUS to the SVG RCA. 12:01:08 Wire removed. 12:02:50 Wire readvanced down the [place] RCA. 12:02:57 IVUS catheter advanced over wire. 12:02:59 IVUS pass to RCA lesion performed. 12:03:02 IVUS catheter removed over wire. 12:03:56 Inflation Number: 1 A Taran RX 3.5 x 22 stent was prepped and advanced across the Mid RCA. The stent was deployed at 21 [place] for 0:10 (min:sec). 12:04:05 Stent catheter was removed intact over wire. 12:04:06 Wire removed. 12:04:06 Guide catheter removed. 12:04:17 Cordis 6Fr Exoseal opened to sterile field. 12:04:25 Sheath removed intact; hemostasis achieved with Exoseal to the Right Femoral artery. 12:04:27 Procedure ended.(Physican Out) 12:06:47 Fluoroscopy time 06.50 minutes. 12:06:51 Fluoroscopy dose: 321 mGy 12:06:51 Flurop Dose total: 321 12:07:00 Contrast amount:Isovue 300 92ml. 12:07:01 Sharps counted by scrub and verified by R.N. 12:07:59 Insertion/operative site no bleeding no hematoma. 12:08:02 Post-op/insertion site Right Femoral artery dressed using a 4 x 4 and Tegaderm. 12:08:04 Post Procedure Pulses reassessed and unchanged 12:08:06 Post-procedure physical assessment completed. ASA score P 2 - A patient with mild systemic disease as per Ilya Mackey MD. 12:08:09 Post procedure rhythm: unchanged. 12:08:12 Estimated blood loss: 10 ml 12:08:13 Post procedure instruction explained to patient.Patient verbalizes understanding. 12:08:14 Patient needs reinforcement of post procedure teaching. 12:08:37 Procedure type changed to Cath procedure, Diagnostic procedure, LHC, LHC w/Coronaries w/Grafts, FFR/IVUS, Intra-Coronary IVUS Initial, Intra-Coronary IVUS Additional, PCI procedure, Coronary Stent Initial, Miscellaneous Procedures, Moderate Sedation up to 30 minutes 12:08:41 Procedure Complication : No complications 12:09:03 Procedure and supply charges have been captured, reviewed, submitted and are correct. 12:11:24 Vital chart was stopped 12:11:25 See physician's report for complete and final results. 12:11:28 Report given to PCU. 12:11:30 Patient transfered to PCU with Bed. 12:11:32 Procedure ended. 12:11:32 Full Disclosure recording stopped 12:11:36 End room use (Document Last) Intervention Summary Intervention Notes Time ActionType Lesion and Equipment Action# Pressure Duration Attributes Used 12:03:56 Place stent Mid RCA Elizabeth RX 1 21 00:10 3.5 x 22 stent Device Usage Item Name Manufacture Quantity Catalog Number Hospital Part Current Min imal Lot# / Charge Number Stock Stock Serial# Code Tegaderm 4 x 3M 1 [id number] 536858 682193 127951 5 4 Acist Hand Acist 1 03540 348473 157142 668573 5 Control Medical Systems Inc Acist Acist 1 05019 065824 817265 485113 5 Manifold Medical Systems Inc Acist Acist 1 81460 318399 928308 807925 20 Syringe Medical Systems Inc Bag Decanter Microtek 1 2002S 058460 38957 460250 5 Medical Inc. Medline Cath Cardinal 1 [id number] 157169 64003 720291 5 Pack Health Terumo 5Fr Terumo 1 [id number] 083420 298163 630235 [address] Scottie 1 878416 263508 120156 653501 30 260cm J .035 wire Diagnostic Cardinal 1 [id number] 293837 24232 399143 30 Infinity 5Fr Health Multipack catheter Cordis 5Fr Cardinal 1 [id number] 5 Pigtail Health Catheter (MP) Cordis 5Fr Cardinal 1 475125 5 [facility] Health Catheter (MP) Terumo 6Fr Terumo 1 [id number] 110336 253575 589725 40 [place] Sheath Ama Sci Ama 1 [id number] 887186 224133 828313 5 PT Graphix J Scientific 182cm 0.014 guide wire Merit Merit 1 [id number] 056742 075965 139862 15 BasixCompak Medical Inflation Kit [place] Paw Paw 1 05105P 690509 336516 256573 8 [place] Eagleye IVUS Catheter Medtronic Medtronic 1 [id number] 312008 06885 070719 1 Launcher 6Fr AR 2.0 guide catheter Cook 18G 7cm New Relic 1 [id number] 504924 65416 628791 5 Percutaneous Entry needle Taran RX 3.5 Medtronic 1 [id number] 728350 9312233 466542 5 [id number] x 22 stent Cordis 6Fr Cardinal 1 EX600 202332 638520 246338 10 [facility] Signature Audit Meally Stage Time Signature Unsigned Intra-Procedure 02/24/2017 Ludwin Ceron 12:14:32 PM RT(R) Signatures Monitor : Ludwin Ceron RT Signature : Date : Time : [address] [place] [address]
[2017-02-21 22:15] LABS: BASOPHILS 0.1 % (0-2); EOSINOPHILS 1.9 % (0-7); HEMATOCRIT 35.2 % (42.0-54.0); HEMOGLOBIN 11.5 g/dL (13.5-17.5); IMMATURE GRANULOCYTES 0.3 % (0-5); LYMPHOCYTES 34.3 % (15-50); MCH 30.8 pg (26.0-34.0); MCHC 32.7 g/dL (31.0-37.0); MCV 94.4 fL (80.0-100.0); MEAN PLATELET VOLUME 9.4 fL (7.4-10.4); MONOCYTES 12.9 % (2-11); NEUTROPHILS 50.5 % (40-80); PLATELET COUNT 201 10x3/uL (130-400); RBC 3.73 10x6/uL (4.20-6.10); WBC 6.8 10x3/uL (4.8-10.8)
[2017-02-21 22:49] LABS: ALBUMIN 3.6 g/dL (3.4-5.0); ANION GAP 15.9 mmol/L (8-16); BILIRUBIN - TOTAL 0.42 mg/dL (0.2-1.3); CALCIUM 8.6 mg/dL (8.5-10.1); CARBON DIOXIDE 26.1 mmol/L (21.0-32.0); CREATININE - SERUM 1.2 mg/dL (0.6-1.3); PROTEIN - SERUM 7.3 g/dL (6.4-8.2)
[2017-02-21 22:53] LABS: MAGNESIUM - SERUM 2.3 mg/dL (1.8-2.4); TROPONIN-I 0.022 ng/mL (0.000-0.060)
[2017-02-22] VITALS (7 sets, daily range): BP systolic 94–136; BP diastolic 53–76; Ht 172.7 cm; Wt 106.8 kg
--- NOTE | 2017-02-22 01:04 | NUR ---
PT ARRIVES FROM THE ER VIA WC AT THIS TIME ACCOMPANIED BY TRADE RECRUITER. ADMISSION ASSESSMENT AND HISTORY COMPLETED. VSS, AFEBRILE. O2 2LPM NC, SATS 98%. PLACED ON TELEMETRY, PACED ON MONITOR - HR 70'S. RIGHT VHEST WITH IP, ACCESSED AND SALINE LOCKED. MORPHINE LISTED A PT ALLERGY, HOWEVER, PT RECEIVED MORPHINE IN THE ER WITHOUT ADVERSE REACTION NOTED. PT STATES MORPHINE IS NOT ONE OF HIS ALLERGIES AND MORPHINE REMOVED FROM ALLERGY LIST. MEDICATIONS RECONCILED AT THE BEDSIDE. WILL CONT TO MONITOR.
[2017-02-22] MEDS ORDERED: ZANTAC300 MG PO (01:29)
[2017-02-22] MEDS ORDERED: K-TAB10 MEQ PO (05:40)
[2017-02-22 09:21] LABS: INR 1.52 (0.85-1.17); PROTIME 18.2 SECONDS (11.6-15.0)
--- NOTE | 2017-02-22 09:27 | NUR ---
TELEMETRY SR/PACED. BLOOD DRAWN PER IP AND FLUSHED WITH NS. LINE IS PATENT.
--- NOTE | 2017-02-22 12:25 | NUR ---
METRONICS AT BS INTEROGATING PACEMAKER.
[2017-02-23] VITALS (7 sets, daily range): BP systolic 106–128; BP diastolic 54–72
[2017-02-23 05:25] LABS: BASOPHILS 0 % (0-2); EOSINOPHILS 0 % (0-7); HEMATOCRIT 36.8 % (42.0-54.0); IMMATURE GRANULOCYTES 0.2 % (0-5); LYMPHOCYTES 15.3 % (15-50); MCH 30.5 pg (26.0-34.0); MCHC 32.6 g/dL (31.0-37.0); MCV 93.4 fL (80.0-100.0); MEAN PLATELET VOLUME 9.6 fL (7.4-10.4); MONOCYTES 3.9 % (2-11); NEUTROPHILS 80.6 % (40-80); PLATELET COUNT 229 10x3/uL (130-400); RBC 3.94 10x6/uL (4.20-6.10); RDW 14.5 % (11.5-14.5)
[2017-02-23 05:37] LABS: WBC 4.1 10x3/uL (4.8-10.8)
[2017-02-23 05:46] LABS: ANION GAP 12.3 mmol/L (8-16); CALCIUM 8.8 mg/dL (8.5-10.1); CARBON DIOXIDE 30.4 mmol/L (21.0-32.0); CREATININE - SERUM 1.3 mg/dL (0.6-1.3); MAGNESIUM - SERUM 2.6 mg/dL (1.8-2.4); PHOSPHOROUS 3.1 mg/dL (2.5-4.9); POTASSIUM - SERUM 3.7 mmol/L (3.5-5.1)
--- NOTE | 2017-02-23 06:17 | NUR ---
ASSESSMENT DONE. DENIES NEEDS.
--- NOTE | 2017-02-23 09:00 | NUR ---
UP SOB WITH CALL LIGHT IN REACH. RESP UL ON . WILL MONITOR NEEDS.
--- NOTE | 2017-02-23 17:27 | NUR ---
WITHOUT CHANGES OR DISTRESS NOTED AT THIS TIME. DENIES NEEDS.
--- NOTE | 2017-02-23 20:50 | NUR ---
PT LYING IN BED, AWAKE, ALERT, ORIENTED, FEMALE EC TEACHER AT BEDSIDE. PT IMMEDIATELY STATED HE WAS HAVING CHEST PAIN AT A 9 OUT OF 10 ON NUMERIC PAIN SCALE. PT DENIES ANY OTHER NEEDS AT THIS TIME. PRN MORPHINE GIVEN AFTER CONFIRMING V/S AND B/P WERE STABLE. CONTINUE TO MONITOR CLOSELY. BED LOW, CALL LIGHT IN REACH, SIDE RAILS X 2, HOB 30 DEGREES. PT TO CALL WITH ANY NEEDS.
--- NOTE | 2017-02-23 22:55 | NUR ---
PT LYING IN BED RESTING COMFORTABLY, EASILY ROUSABLE TO VERBAL STIMULI, DENIES ANY NEEDS. PT STATES HE IS NOT HAVING ANY CP AT THIS TIME. CONTINUE TO MONITOR CLOSELY. BED LOW, CALL LIGHT IN REACH, SIDE RAILS X 2, HOB 20 DEGREES.
--- NOTE | 2017-02-24 03:47 | NUR ---
AM LAB DRAWN VIA RT SUBCLAVIAN CHEST PORT BEFORE STARTING SCHEDULED ROCEPHIN.
[2017-02-24 04:00] VITALS: BP 116/68
[2017-02-24 05:45] LABS: BASOPHILS 0 % (0-2); EOSINOPHILS 0 % (0-7); HEMATOCRIT 35.4 % (42.0-54.0); HEMOGLOBIN 11.4 g/dL (13.5-17.5); IMMATURE GRANULOCYTES 0.1 % (0-5); LYMPHOCYTES 5.9 % (15-50); MCH 30.2 pg (26.0-34.0); MCHC 32.2 g/dL (31.0-37.0); MCV 93.7 fL (80.0-100.0); MEAN PLATELET VOLUME 9.4 fL (7.4-10.4); MONOCYTES 5.8 % (2-11); NEUTROPHILS 88.2 % (40-80); PLATELET COUNT 238 10x3/uL (130-400); RBC 3.78 10x6/uL (4.20-6.10); RDW 14.4 % (11.5-14.5)
[2017-02-24 05:57] LABS: ANION GAP 12.7 mmol/L (8-16); CALCIUM 8.8 mg/dL (8.5-10.1); CREATININE - SERUM 1.2 mg/dL (0.6-1.3); MAGNESIUM - SERUM 2.4 mg/dL (1.8-2.4); PHOSPHOROUS 3.8 mg/dL (2.5-4.9); POTASSIUM - SERUM 3.7 mmol/L (3.5-5.1)
--- NOTE | 2017-02-24 07:49 | NUR ---
ASSESSMENT DONE. DENIES NEEDS.
[2017-02-24 08:00] VITALS: BP 136/80
--- NOTE | 2017-02-24 08:33 | NUR ---
RESTS WITH EYES CLOSED. RESP UL ON . IV PATENT. CALL LIGHT IN REACH. WILL CONT. PLAN OF CARE.
--- NOTE | 2017-02-24 11:00 | NUR ---
TO CLASSIFIER PER BED
--- NOTE | 2017-02-24 12:32 | NUR ---
RETURN FROM LAWN CARE SPECIALIST PER BED. RT JUDE DRSG C/D, PULSE PALP
[2017-02-24 17:26] VITALS: BP 103/62
--- NOTE | 2017-02-24 17:50 | NUR ---
WITHOUT CHANGES OR DISTRESS NOTED AT THIS TIME. DENIES NEEDS.
--- NOTE | 2017-02-24 20:16 | NUR ---
PT SITTING ON SIDE OF BED ASKING FOR ICE CREAM AND A COLA. NO OTHER NEEDS AT THIS TIME. CONTINUE TO MONITOR CLOSELY.
[2017-02-24 22:49] VITALS: BP 120/62
--- NOTE | 2017-02-25 05:07 | NUR ---
PT RESTING COMFORTABLY, EASILY ROUSABLE TO VERBAL STIMULI, CONTINUE TO MONITOR CLOSELY. BED LOW, CALL LIGHT IN REACH, SIDE RAILS X 2, HOB 20 DEGREES.
[2017-02-25 06:33] LABS: BASOPHILS 0 % (0-2); EOSINOPHILS 0 % (0-7); HEMATOCRIT 36.6 % (42.0-54.0); HEMOGLOBIN 11.8 g/dL (13.5-17.5); IMMATURE GRANULOCYTES 0.3 % (0-5); MCH 30.7 pg (26.0-34.0); MCHC 32.2 g/dL (31.0-37.0); MCV 95.3 fL (80.0-100.0); MEAN PLATELET VOLUME 9.6 fL (7.4-10.4); MONOCYTES 4.6 % (2-11); NEUTROPHILS 85.1 % (40-80); PLATELET COUNT 216 10x3/uL (130-400); RBC 3.84 10x6/uL (4.20-6.10); RDW 14.8 % (11.5-14.5)
[2017-02-25 06:47] LABS: ANION GAP 12.4 mmol/L (8-16); CALCIUM 8.6 mg/dL (8.5-10.1); CARBON DIOXIDE 31.2 mmol/L (21.0-32.0); CREATININE - SERUM 1.3 mg/dL (0.6-1.3); POTASSIUM - SERUM 3.6 mmol/L (3.5-5.1)
[2017-02-25 08:00] VITALS: BP 96/53
--- NOTE | 2017-02-25 08:00 | NUR ---
ASSESSMENT COMPLETED. UP ON SIDE OF BED. TELEMERTY SHOWS SR. 02 AT 2 LM PER NC. SANCHES CATH TO BEDSIDE GRAVITY BAG. DENIES ANY NEEDS. CATH SITE SOFT CLEAN AND DRY. WILL MONITOR
--- NOTE | 2017-02-25 10:45 | NUR ---
RECEIVED PT BACK FROM IMAGING VIA W/C IN STABLE CONDITION NAD NOTED
[2017-02-25 12:00] VITALS: BP 115/55
--- NOTE | 2017-02-25 15:52 | NUR ---
UP IN CHAIR. DENIES ANY NEEDS. CALL LIGHT IN REACH. TELEMERTY SHOWS SR
[2017-02-25 16:00] VITALS: BP 113/67
--- NOTE | 2017-02-25 18:55 | NUR ---
UP IN ROOM WITH VISITOR. DENIES ANY NEEDS. WILL MONITOR
[2017-02-25 21:24] VITALS: BP 125/88
[2017-02-26 01:40] VITALS: BP 115/57
[2017-02-26 04:00] VITALS: BP 107/62
[2017-02-26 07:07] LABS: ANION GAP 10.6 mmol/L (8-16); CALCIUM 8.7 mg/dL (8.5-10.1); CARBON DIOXIDE 33.8 mmol/L (21.0-32.0); CREATININE - SERUM 1.3 mg/dL (0.6-1.3)
[2017-02-26 07:08] LABS: POTASSIUM - SERUM 4.4 mmol/L (3.5-5.1)
[2017-02-26 07:33] LABS: BASOPHILS 0 % (0-2); EOSINOPHILS 0 % (0-7); HEMATOCRIT 35.8 % (42.0-54.0); HEMOGLOBIN 11.5 g/dL (13.5-17.5); IMMATURE GRANULOCYTES 0.4 % (0-5); LYMPHOCYTES 15.3 % (15-50); MCH 30.7 pg (26.0-34.0); MCHC 32.1 g/dL (31.0-37.0); MCV 95.7 fL (80.0-100.0); MEAN PLATELET VOLUME 9.4 fL (7.4-10.4); MONOCYTES 5.1 % (2-11); NEUTROPHILS 79.2 % (40-80); PLATELET COUNT 217 10x3/uL (130-400); RBC 3.74 10x6/uL (4.20-6.10); RDW 14.6 % (11.5-14.5); WBC 5.7 10x3/uL (4.8-10.8)
[2017-02-26 08:41] VITALS: BP 89/45
--- NOTE | 2017-02-26 09:39 | NUR ---
ASSESSMENT COMPLETED. TELEMERTY SHOWS SR. HE HAS A PACER AND DEFIB. O2 AT 2 L/M PER NC. SANCHES CATH DCWITHOUT PROBLEM. RIGHT CHEST WITH SL. DENIES ANY NEEDS. CALL LIGHT IN REACH WITH SR UP. WILL MONITOR
--- NOTE | 2017-02-26 09:53 | NUR ---
RESTING QUIETLY SITTING ON SIDE OF BED NAD NOTED
--- NOTE | 2017-02-26 10:00 | NUR ---
SANCHES REMOVED. DENIES ANY NEEDS
[2017-02-26 12:00] VITALS: BP 112/65
[2017-02-26] MEDS ORDERED: OMNICEF300 MG PO (12:17)
[2017-02-26] MEDS ORDERED: FLORAJEN3 CAPS460 MG PO (12:22)
[2017-02-26] MEDS ORDERED: PREDNISONE10 MG PO (12:25)
--- NOTE | 2017-02-26 12:55 | NUR ---
Patient Name: THADDEUS WEAVER Admission Status: ER Accout number: [id number] Admission Date: 02-22-2017 : 1945 Admission Diagnosis:CHEST PAIN, UNSPECIFIED Attending: BRYANNA BONILLA Current LOS: 4 Anticipated DC Date: 02-26-2017 Planned Disposition: Home Primary [facility] [email or web address] [facility] Discharge Planning Comments: * Is the patient Alert and Oriented? Yes 0 * How many steps to enter\exit or inside your home? NONE 0 * PCP DR. HYMAN 0 * Pharmacy [facility] 0 * Preadmission Environment Home Alone 0 * ADLs Independent 0 * Equipment Nebulizer Oxygen 0 * Other Equipment OXYGEN WITH HUMIDITY AT NIGHT [facility]QU[facility] PROVIDER PREFERNECE 0 * List name and contact numbers for known caregivers / representatives who currently or will assist patient after discharge: ДМИТРИЙ RAPHAELES, FRIEND, 0 * Community resources currently utilized None 0 * Please name any agencies selected above. NONE 0 * Additional services required to return to the preadmission environment? No 0 * Can the patient safely return to the preadmission environment? Yes 0 * Has this patient been hospitalized within the prior 30 days at any hospital? No 0 CM RECEIVED OXYGEN ORDER, MET WITH PT IN ROOM TO DISCUSS DISCHARGE PLANNING AND NEEDS. PT REPORTS LIVING AT HOME INDEPENDENTLY AND ALONE. PT HAS NEB AND NIGHT OXYGEN FROM [facility]. PT HAS NO OUTSIDE SERVICES ASSISTING IN THE HOME. CM DISCUSSED AVAILABILITY OF HOME HEALTH, REHAB SERVICES AND MEDICAL EQUIPMENT. PT DENIES DISCHARGE NEEDS, REPORTS HIS FRIEND IS HERE TO PICK HIM UP FOR DISCHARGE HOME. IMPORTANT MESSAGE FROM MEDICARE PROVIDED AND EXPLAINED. CM CALLED [facility] OF [facility], , [facility] PICKED UP REFERRAL FOR PORTABLE OXYGEN AND WILL ARRANGE PORTABLE OXYGEN DELIVERY TO PT'S ROOM FOR DISCHARGE HOME TODAY. Media Clerk: Vazquez Ruiz
--- NOTE | 2017-02-26 15:39 | NUR ---
PT DISCHARGED. IP DCD AFTER BEING FLUSHED. INSTRUCTIONS GIVEN TO PT AND FAMILY. TO PRIVATR CAR PER WHEEL CHAIR
--- NOTE | 2017-03-05 14:14 | OP ---
PATIENT NAME: THADDEUS WEAVER MEDICAL RECORD: [id number] :[birth year] LOCATION:D.M2 D.2123 ADMISSION DATE:02/22/17 SURGEON: HUSSEIN WALKER MD DATE OF OPERATION: 02/24/2017 PROCEDURES: 1. PTCA and stent of RCA. 2. Intravascular ultrasound. 3. Left heart catheterization. 4. Vein graft angiography. 5. GARNER angiography. INDICATIONS: Angina and coronary artery disease. PROCEDURE IN DETAIL: After informed consent was obtained and after detailed description of risks and benefits as well as alternative therapies, the patient elected to proceed with angiogram and angioplasty. The right femoral area was prepped and draped in normal sterile fashion. The right femoral artery was cannulated via modified Seldinger technique with placement of 6-Monegasque sheath. All catheter was exchanged through this sheath. FINDINGS: The left ventriculogram was performed in standard 30-degree AGUAYO view, reveals global hypokinesis. Ejection fraction 30%. SELECTIVE CORONARY ANGIOGRAPHY: 1. Left main is closed from previous coronary angiography. 2. GARNER to LAD is patent. Distal LAD is widely patent. 3. Vein graft to the circumflex is closed. 4. Vein graft to the diagonal is closed. 5. Right coronary is open, leading into the PLV. PDA is totally occluded. 6. The vein graft to the PDA is widely patent. Intravascular ultrasound reveals no significant stenosis in the shaft of the vein graft; however, greater than 80% stenosis in the mid shaft of the creek right coronary. PTCA AND STENT OF THE RCA: The stent used was 3.5 x 22-mm Taran. Result was 0% residual stenosis. OVERALL IMPRESSION: Successful PTCA and stent of the right coronary, going from 80% initial stenosis to 0% residual stenosis. TRANSINT:[id number] Voice Confirmation ID: [id number] DOCUMENT ID: [id number] HUSSEIN WALKER MD at 1414 CC: [id number] DICTATION DATE: 02/24/17 1214 GENERAL OPERATIONS MANAGER: 02/24/17 1251 DIS IN 02/26/17 [id number] [place] [address]
== END 2017-02-26 15:51 | disposition home or self-care (01) | DRG 246 ==
LOC: D.ER 21:32 → D.M2 02-22 00:28 → OBSVTIME 02-22 00:28 → D.M2 02-22 00:28
PROVIDERS: Emergency Medicine; Internal Medicine Interventional Cardiology; ADMIT Emergency Medicine
PROC: 4A023N7 Measurement of Cardiac Sampling and Pressure, Left Heart, Percutaneous Approach (ICD-10-PCS; 2017-02-24)
PROC: B2111ZZ Fluoroscopy of Multiple Coronary Arteries using Low Osmolar Contrast (ICD-10-PCS; 2017-02-24)
PROC: B2181ZZ Fluoroscopy of Left Internal Mammary Bypass Graft using Low Osmolar Contrast (ICD-10-PCS; 2017-02-24)
PROC: B2151ZZ Fluoroscopy of Left Heart using Low Osmolar Contrast (ICD-10-PCS; 2017-02-24)
PROC: 027034Z Dilation of Coronary Artery, One Artery with Drug-eluting Intraluminal Device, Percutaneous Approach (ICD-10-PCS; principal; 2017-02-24 11:00)
PROC: B240ZZ3 Ultrasonography of Single Coronary Artery, Intravascular (ICD-10-PCS; 2017-02-24 11:00)
DX: I25.119 Atherosclerotic heart disease of native coronary artery with unspecified angina pectoris (principal); I50.23 Acute on chronic systolic (congestive) heart failure; J96.01 Acute respiratory failure with hypoxia; J69.0 Pneumonitis due to inhalation of food and vomit; J18.9 Pneumonia, unspecified organism; J44.0 Chronic obstructive pulmonary disease with (acute) lower respiratory infection; J44.1 Chronic obstructive pulmonary disease with (acute) exacerbation; J98.11 Atelectasis; I42.9 Cardiomyopathy, unspecified; F90.9 Attention-deficit hyperactivity disorder, unspecified type; K21.9 Gastro-esophageal reflux disease without esophagitis; D64.9 Anemia, unspecified; N40.0 Benign prostatic hyperplasia without lower urinary tract symptoms; E78.5 Hyperlipidemia, unspecified; I48.91 Unspecified atrial fibrillation; F31.9 Bipolar disorder, unspecified; Z79.01 Long term (current) use of anticoagulants; Z99.81 Dependence on supplemental oxygen; Z95.2 Presence of prosthetic heart valve; Z86.73 Personal history of transient ischemic attack (TIA), and cerebral infarction without residual deficits; Z86.718 Personal history of other venous thrombosis and embolism; Z87.891 Personal history of nicotine dependence

== ENCOUNTER 2017-03-10 07:32 | Inpatient (IN) | payer BC, MEDICARE ==
[~2017-03-10] VITALS: Ht 172.7 cm; Wt 102.3 kg
[~2017-03-10 07:32] MED LIST changes: +FLORAJEN3 CAPS460 MG PO; +K-TAB10 MEQ PO; +OMNICEF300 MG PO; +PREDNISONE10 MG PO
[2017-03-10 08:10] LABS: BASOPHILS 0.1 % (0-2); EOSINOPHILS 0.3 % (0-7); HEMATOCRIT 40.5 % (42.0-54.0); HEMOGLOBIN 13.3 g/dL (13.5-17.5); IMMATURE GRANULOCYTES 0.3 % (0-5); LYMPHOCYTES 10.1 % (15-50); MCH 30.8 pg (26.0-34.0); MCHC 32.8 g/dL (31.0-37.0); MCV 93.8 fL (80.0-100.0); MEAN PLATELET VOLUME 8.8 fL (7.4-10.4); MONOCYTES 7.7 % (2-11); NEUTROPHILS 81.5 % (40-80); PLATELET COUNT 209 10x3/uL (130-400); RBC 4.32 10x6/uL (4.20-6.10); RDW 14.3 % (11.5-14.5); WBC 10.8 10x3/uL (4.8-10.8)
[2017-03-10 08:53] LABS: ALBUMIN 3.8 g/dL (3.4-5.0); ALKALINE PHOSPHATASE 108 U/L (46-116); ALT (SGPT) 35 U/L (10-68); CALC OSMOLALITY 282 mosm/kg (275-300); CALCIUM 9.7 mg/dL (8.5-10.1); CARBON DIOXIDE 29.2 mmol/L (21.0-32.0); CHLORIDE - SERUM 97 mmol/L (98-107); CREATININE - SERUM 1.3 mg/dL (0.6-1.3); GLUCOSE 168 mg/dL (74-106); POTASSIUM - SERUM 4.1 mmol/L (3.5-5.1); SODIUM 138 mmol/L (136-145); UREA NITROGEN 20 mg/dL (7-18); eGFR NON AFRICAN AMERICAN 58 mL/min (90-120)
[2017-03-10 08:55] LABS: CREATINE KINASE 72 UL (21-232); TROPONIN-I < 0.017 ng/mL (0.000-0.060)
--- NOTE | 2017-03-10 11:21 | NUR ---
PT ADMITTED TO FLOOR FROM ER WITH HOSPITAL STAFF VIA WHEELCHAIR, FIANCE WITH PT
[2017-03-10 11:31] VITALS: BMI 35.9
[2017-03-10 14:33] LABS: AMYLASE - SERUM 61 U/L (25-115); LIPASE 245 U/L (73-393)
[2017-03-10 18:24] VITALS: BP 129/75
[2017-03-10 20:00] VITALS: BP 121/67
[2017-03-11 03:14] LABS: BASOPHILS 0.1 % (0-2); EOSINOPHILS 0.9 % (0-7); HEMATOCRIT 39.2 % (42.0-54.0); HEMOGLOBIN 12.6 g/dL (13.5-17.5); IMMATURE GRANULOCYTES 0.2 % (0-5); LYMPHOCYTES 33.2 % (15-50); MCHC 32.1 g/dL (31.0-37.0); MEAN PLATELET VOLUME 9.1 fL (7.4-10.4); MONOCYTES 11.6 % (2-11); PLATELET COUNT 219 10x3/uL (130-400); RBC 4.07 10x6/uL (4.20-6.10); RDW 14.6 % (11.5-14.5); WBC 9.6 10x3/uL (4.8-10.8)
[2017-03-11 03:15] LABS: MCV 96.3 fL (80.0-100.0)
[2017-03-11 03:28] LABS: ALBUMIN 3.4 g/dL (3.4-5.0); ALKALINE PHOSPHATASE 177 U/L (46-116); CALC OSMOLALITY 277 mosm/kg (275-300); CALCIUM 8.4 mg/dL (8.5-10.1); CARBON DIOXIDE 25.2 mmol/L (21.0-32.0); CHLORIDE - SERUM 100 mmol/L (98-107); CREATININE - SERUM 1.2 mg/dL (0.6-1.3); GLUCOSE 147 mg/dL (74-106); POTASSIUM - SERUM 4.6 mmol/L (3.5-5.1); PROTEIN - SERUM 7.4 g/dL (6.4-8.2); SODIUM 137 mmol/L (136-145); UREA NITROGEN 16 mg/dL (7-18); eGFR NON AFRICAN AMERICAN 64 mL/min (90-120)
[2017-03-11 03:32] LABS: ALT (SGPT) 59 U/L (10-68)
[2017-03-11 03:37] LABS: CKMB 2.3 U/L (0.0-3.6); CREATINE KINASE 102 UL (21-232)
[2017-03-11 04:00] VITALS: BP 106/55
--- NOTE | 2017-03-11 08:12 | NUR ---
AWAKE AND ALERT. ORIENTED X3. CONTINUES WITH C/O ABDOMINAL PAIN, INTENSE. LUNGS ARE CLEAR BILATERALLY, NO COUGH NOTED. SKIN IS INTACT WITHOUT REDNESS. RIGHT PORT PATNET WITHOUT REDNESS AT INSERTION SITE. SCD'S IN PLACE. DENIES NEEDS. AT BEDSIDE.
[2017-03-11 08:13] VITALS: BP 109/51
--- NOTE | 2017-03-11 09:30 | NUR ---
UP TO BR WITH ONE PERSON ASSIST. HAD MODERATE SOFT FORMED DARK BROWN STOOL.
--- NOTE | 2017-03-11 09:50 | NUR ---
PER DR. CLARK AFTER REVIEWING THE MACHINE MOLDER KUB, THERE IS TOO MUCH RESIDUAL CONTRAST FROM A PRIOR CT SCAN FOR A DIAGNOSTIC SMALL BOWEL STUDY. A NEW ORDER HAS BEEN PUT IN TO TRY AND PERFORM THE STUDY AGAIN IN THE AM. THIS WAS RELAYED TO THE PATIENTS NURSE, GABBY. LETICIA GARG(R)
--- NOTE | 2017-03-11 11:00 | NUR ---
NG PLACED TO LEFT NARE WITHOUT DIFFICULTY. IMMEDIATE RETURN OF STOMACH CONTENT. PLACEMENT WNL PER ASCULTATION. WILL GET EXRAY FOR CONFIRMATION OF PLACEMENT.
[2017-03-11 12:25] VITALS: BP 107/57
--- NOTE | 2017-03-11 15:30 | NUR ---
HAD EPISODE OF NOT BEING ABLE TO BREATHE. O2 SAT WAS 97% ON 3L O2 NC. DR. VICTOR NOTIFIED OF SAME. RT NOTIFIED AND UD STARTED. NEW ORDERS FOR MORPHINE MANAGER OF MERCHANDISING AND ATIVAN RECEIVED. BREATHING STABILZED AFTER UD AND MEDS GIVEN. DR. WASHINGTON HERE WELL FOR CONSULT.
[2017-03-11 16:56] VITALS: BP 148/85
[2017-03-11 20:00] VITALS: BP 120/65
[2017-03-12] VITALS: BP 130/75
[2017-03-12 04:00] VITALS: BP 114/72
[2017-03-12 04:57] LABS: ALBUMIN 3.2 g/dL (3.4-5.0); ANION GAP 10.4 mmol/L (8-16); BILIRUBIN - TOTAL 1.1 mg/dL (0.2-1.3); CALCIUM 8.3 mg/dL (8.5-10.1); CARBON DIOXIDE 31.2 mmol/L (21.0-32.0); CREATININE - SERUM 1.2 mg/dL (0.6-1.3); MAGNESIUM - SERUM 2.2 mg/dL (1.8-2.4); PROTEIN - SERUM 7.2 g/dL (6.4-8.2)
[2017-03-12 05:01] LABS: POTASSIUM - SERUM 3.6 mmol/L (3.5-5.1)
[2017-03-12 05:05] LABS: BASOPHILS 0.2 % (0-2); EOSINOPHILS 1.3 % (0-7); HEMATOCRIT 37.3 % (42.0-54.0); HEMOGLOBIN 11.9 g/dL (13.5-17.5); IMMATURE GRANULOCYTES 0.2 % (0-5); LYMPHOCYTES 25.2 % (15-50); MCH 30.4 pg (26.0-34.0); MCHC 31.9 g/dL (31.0-37.0); MCV 95.2 fL (80.0-100.0); MEAN PLATELET VOLUME 9.1 fL (7.4-10.4); MONOCYTES 13.8 % (2-11); NEUTROPHILS 59.3 % (40-80); PLATELET COUNT 194 10x3/uL (130-400); RBC 3.92 10x6/uL (4.20-6.10); RDW 14.6 % (11.5-14.5)
[2017-03-12 07:54] VITALS: BP 120/75
--- NOTE | 2017-03-12 08:02 | NUR ---
AWAKE AND ALERT. ORIENTED X3. C/O ABDOMINAL PAIN THIS AM. RECREATIONAL VEHICLE REPAIRER IS IN LOCKOUT AT THIS TIME. WILL MONITOR. LUNGS ARE CLEAR BILATERALLY, NO COUGH NOTED. NG TO LEFT NARE TO LIS IS PATENT WITH DARK GREENISH DRAINAGE AT THIS TIME. RIGHT PORT PATENT WITHOUT REDNESS AT INSERTION SITE. AT BEDSIDE. DENIES NEEDS. SCD'S IN PLACE.
--- NOTE | 2017-03-12 11:46 | NUR ---
Patient Name: THADDEUS WEAVER Admission Status: ER Accout number: [id number] Admission Date: 03-12-2017 : 1945 Admission Diagnosis: Attending: CHRISTIANO VICTOR Current LOS: 1 Anticipated DC Date: 03-16-2017 Planned Disposition: Home Primary Insurance: [employer] [facility] Discharge Planning Comments: CM MET WITH PATIENT AND VALERIA (ДМИТРИЙ) REGARDING D/C NEEDS AND PLANS. PATIENT STATED HE LIVES AT [facility] AND HAS AN ELEVATOR AT FACILITY. PATIENTS [employer]ES WILL DRIVE HIM HOME AT DISCHARGE. PATIENT IS INDEPENDENT WITH HIS CARE AND USES [facility] AT NIGHT (NO OTHER DME). PATIENTS PCP IS DR. HYMAN AND PHARMACY IS [facility]. PATIENT DOES NOT WANT HOME HEALTH AT THIS TIME. CM WILL CONTINUE TO FOLLOW PATIENT WITH D/C NEEDS AND PLANS. PCP DR. HYMAN [facility] [phone] ДМИТРИЙ ([facility]) [phone] Wide Area Network Administrator: Addis Pearson Is the patient Alert and Oriented? Yes 0 * How many steps to enter\exit or inside your home? 0 0 * PCP DR. HYMAN 0 * Pharmacy [facility] 0 * Preadmission Environment Home Alone 0 * ADLs Independent 0 * Equipment [facility] 0 * List name and contact numbers for known caregivers / representatives who currently or will assist patient after discharge: ДМ[facility]РИЙ [facility] [phone] * Community resources currently utilized None 0 * Additional services required to return to the preadmission environment? Yes 0 * Can the patient safely return to the preadmission environment? Yes 0 * Has this patient been hospitalized within the prior 30 days at any hospital? No 0 Grand Total: 0
[2017-03-12 12:00] VITALS: BP 136/77
--- NOTE | 2017-03-12 12:00 | NUR ---
OFF UNIT VIA BED FOR TESTING.
[2017-03-12 15:27] VITALS: BP 137/80
--- NOTE | 2017-03-12 19:00 | NUR ---
REPORT RECEIVED AND CARE OF PT ASSUMED. PT LYING IN SEMI WEEMS'S POSITION WITH EYES CLOSED AND UNLABORED BREATHING. NG TUBE IN LEFT NARE TO LIS. RIGHT PORT ACCESSED WITH NS INFUSING AT KVO. RACK PRODUCTION WORKER WITH MORPHINE IN USE FOR PAIN CONTROL. TELEMETRY IN PLACE AND READING 92 SR AT THIS ASSESSMENT. WILL MONITOR FOR NEEDS. FAMILY MEMBER IS AT BEDSIDE.
[2017-03-12 20:00] VITALS: BP 136/81
--- NOTE | 2017-03-12 21:36 | NUR ---
HS MEDICATIONS GIVEN. WILL CONTINUE TO MONITOR FOR NEEDS.
[2017-03-13] VITALS: BP 127/71
--- NOTE | 2017-03-13 00:48 | NUR ---
ASSISTED PT UP TO BSC...LIQUID STOOL WITH SOME SOLIDS. POSITIONED BACK IN BED FOR COMFORT.
[2017-03-13 04:00] VITALS: BP 117/78
[2017-03-13 04:29] LABS: BASOPHILS 0.1 % (0-2); EOSINOPHILS 0.8 % (0-7); HEMATOCRIT 42.4 % (42.0-54.0); IMMATURE GRANULOCYTES 0.3 % (0-5); LYMPHOCYTES 23.3 % (15-50); MCH 31.4 pg (26.0-34.0); MCV 95.1 fL (80.0-100.0); MEAN PLATELET VOLUME 9.2 fL (7.4-10.4); NEUTROPHILS 63.5 % (40-80); RBC 4.46 10x6/uL (4.20-6.10); RDW 14.3 % (11.5-14.5)
[2017-03-13 04:30] LABS: PLATELET COUNT 235 10x3/uL (130-400); WBC 7.8 10x3/uL (4.8-10.8)
[2017-03-13 04:44] LABS: ANION GAP 14.1 mmol/L (8-16); BILIRUBIN - TOTAL 0.6 mg/dL (0.2-1.3); CALCIUM 9.3 mg/dL (8.5-10.1); CARBON DIOXIDE 32.4 mmol/L (21.0-32.0); CREATININE - SERUM 1.3 mg/dL (0.6-1.3); POTASSIUM - SERUM 3.5 mmol/L (3.5-5.1)
[2017-03-13 04:47] LABS: MAGNESIUM - SERUM 2.8 mg/dL (1.8-2.4); PROTEIN - SERUM 9.1 g/dL (6.4-8.2)
--- NOTE | 2017-03-13 05:52 | NUR ---
POTASSIUM LEVEL THIS AM 3.5 REQUIRING COVERAGE VIA ELECTROLYTE PROTOCOL. WILL GIVE X4 10 MEQ RIDERS. FIRST RIDER STARTED.
--- NOTE | 2017-03-13 07:30 | NUR ---
PT AOX4 RESP EVEN AND NONLABORED IV TO RIGHT FOREARM PATENT AND INTACT AT THIS TIME PT DENIES NEEDS AT THIS TIME SRX2 BED AT LOWEST POSITION CALL LIGHT WITHIN REACH WILL CONTINUE TO MONITOR
[2017-03-13 08:50] VITALS: BP 158/84
[2017-03-13 10:28] VITALS: Ht 172.7 cm; Wt 102.3 kg
[2017-03-13 12:55] VITALS: BP 142/84
[2017-03-13 16:50] VITALS: BP 124/70
[2017-03-13 20:00] VITALS: BP 142/84
[2017-03-14] VITALS: BP 110/65
[2017-03-14 04:00] VITALS: BP 135/78
[2017-03-14 05:49] LABS: BASOPHILS 0.2 % (0-2); EOSINOPHILS 1.8 % (0-7); HEMATOCRIT 41.3 % (42.0-54.0); HEMOGLOBIN 13.2 g/dL (13.5-17.5); IMMATURE GRANULOCYTES 0.2 % (0-5); LYMPHOCYTES 26.5 % (15-50); MCH 30.6 pg (26.0-34.0); MCV 95.6 fL (80.0-100.0); MONOCYTES 12.7 % (2-11); NEUTROPHILS 58.6 % (40-80); PLATELET COUNT 225 10x3/uL (130-400); RBC 4.32 10x6/uL (4.20-6.10); RDW 14.2 % (11.5-14.5)
[2017-03-14 06:28] LABS: ALBUMIN 3.7 g/dL (3.4-5.0); ANION GAP 14.3 mmol/L (8-16); BILIRUBIN - TOTAL 0.7 mg/dL (0.2-1.3); CALCIUM 8.7 mg/dL (8.5-10.1); CARBON DIOXIDE 32.8 mmol/L (21.0-32.0); CREATININE - SERUM 1.3 mg/dL (0.6-1.3); MAGNESIUM - SERUM 2.2 mg/dL (1.8-2.4); PROTEIN - SERUM 7.6 g/dL (6.4-8.2)
[2017-03-14 06:29] LABS: POTASSIUM - SERUM 3.1 mmol/L (3.5-5.1)
--- NOTE | 2017-03-14 06:40 | NUR ---
AM POTASSIUM LEVEL 3.1 REQUIRING COVERAGE WITH ELECTROLYTE PROTOCOL WITH 20 MEQ POTASSIUM RIDER Q 2 HR X2 BAGS. FIRST BAG STARTED AT 50 ML/ HR VIA RIGHT INFUSAPORT. WILL PASS ON IN REPORT.
--- NOTE | 2017-03-14 07:25 | NUR ---
PT AOX4 RESP EVEN AND NONLABORED PT DENIES NEEDS AT THIS TIME IV TO RIGHT SUBCLAVIAN INFUSAPORT PATENT AND INTACT AT THIS TIME SRX2 BED AT LOWEST SETTING CALL LIGHT WITHIN REACH WILL CONTINUE TO MONITOR
[2017-03-14 08:42] VITALS: BP 126/77
--- NOTE | 2017-03-14 19:00 | NUR ---
REPORT RECEIVED AND CARE OF PT ASSUMED. PT LYING IN SUPINE POSITION VISITING WITH FAMILY MEMBERS. RIGHT PORT ACCESSED WITH NS INFUSING AT KVO, AND A MANAGER MERCHANDISING IN USE WITH MORPHINE SET AT 04/28/09 FOR PAIN CONTROL. TELEMETRY IN USE AND READING 100 SR AT THIS ASSESSMENT. NG TUBE TO LEFT NARE PATENT TO LIS WITH BROWN LIQUID IN COLLECTION CANNISTER. WILL MONITOR FOR NEEDS.
[2017-03-14 20:00] VITALS: BP 123/76
--- NOTE | 2017-03-14 21:54 | NUR ---
HS MEDICATIONS GIVEN TO INCLUDE ATIVAN PER PRN ORDER, FOR ANXIETY. WILL CONTINUE TO MONITOR FOR NEEDS.
[2017-03-15] VITALS: BP 140/71
--- NOTE | 2017-03-15 02:04 | NUR ---
SIG OTHER LEFT FOR HOME AND PT ANXIOUS AND FIGITY. GAVE ATIVAN PER PRN ORDER. WILL MONITOR FOR EFFECTIVENESS.
[2017-03-15 04:00] VITALS: BP 132/72
[2017-03-15 05:02] LABS: BASOPHILS 0.2 % (0-2); EOSINOPHILS 2.3 % (0-7); HEMATOCRIT 39.9 % (42.0-54.0); HEMOGLOBIN 12.9 g/dL (13.5-17.5); IMMATURE GRANULOCYTES 0.2 % (0-5); LYMPHOCYTES 24.2 % (15-50); MCH 30.7 pg (26.0-34.0); MCHC 32.3 g/dL (31.0-37.0); MEAN PLATELET VOLUME 9.1 fL (7.4-10.4); MONOCYTES 13.6 % (2-11); NEUTROPHILS 59.5 % (40-80); PLATELET COUNT 226 10x3/uL (130-400); RDW 14.1 % (11.5-14.5); WBC 5.7 10x3/uL (4.8-10.8)
[2017-03-15 05:15] LABS: ALBUMIN 3.4 g/dL (3.4-5.0); ANION GAP 13.1 mmol/L (8-16); BILIRUBIN - TOTAL 0.61 mg/dL (0.2-1.3); CARBON DIOXIDE 33.9 mmol/L (21.0-32.0); CREATININE - SERUM 1.1 mg/dL (0.6-1.3); MAGNESIUM - SERUM 2.4 mg/dL (1.8-2.4)
--- NOTE | 2017-03-15 05:43 | NUR ---
POTASSIUM LEVEL 3.0 THIS AM REQUIRING COVERAGE WITH 20 MEQ IV Q2HR X2 PER ELECTROLYTE PROTOCOL. FIRST RIDER STARTED NOW.
--- NOTE | 2017-03-15 06:33 | NUR ---
NG TUBE REMOVED BY PHYSICIAN. NEW ORDER FOR CLEAR LIQUID DIET.
--- NOTE | 2017-03-15 07:00 | NUR ---
REPORT RECIEVED ASSUMED CARE. PATIENT IN BED WITH IV INTACT. NO COMPLAINTS. CALL LIGHT WITHIN REACH.
[2017-03-15 07:39] VITALS: BP 132/79
--- NOTE | 2017-03-15 09:03 | CN ---
PATIENT NAME:THADDEUS WEAVER MEDICAL RECORD: [id number] : [birth year] LOCATION:D.MS Long2206 ADMIT DATE: 03/12/17 ACCOUNT: [id number] CONSULTING PHYSICIAN: HUSSEIN WALKER MD REFERRING PHYSICIAN: CHRISTIANO WILCOX MD DATE OF CONSULTATION: 03/14/2017 CARDIOLOGY CONSULT DIAGNOSES: 1. Cardiomyopathy. 2. Coronary disease. 3. Aortic valve replacement. 4. ICD. 5. Hypertension. 6. Hyperlipidemia. HISTORY: Mr. Weaver is well known to us. He is now admitted with an ileus. He has history of heart failure as well as coronary disease. Last cardiac intervention was earlier this month. He presents with an ileus. He is currently undergoing bowel rest for the ileus and it is resolving. He is not having heart failure symptomatology and not having anginal symptomatology. He has had no dysrhythmia since being in the hospital. PHYSICAL EXAMINATION: GENERAL APPEARANCE: Well-nourished, well-developed, appears stated age. Level of distress, comfortable. PSYCHIATRIC: Mental status, alert, normal affect. Orientation, oriented to time, place and person. EYES: Lids and conjunctiva, noninjected. No discharge, no pallor. ENT: Lips, teeth, gums, normal dentition. Oropharynx, no cyanosis, no pallor. NECK: Carotid arteries, bilateral normal upstroke, no bruits, no thrills. JUGULAR VEINS: No jugular venous pressure or distention. CERVICAL LYMPH NODES: Nontender, nonenlarged. THYROID: Not enlarged. Nontender. No nodules. LUNGS: Respiratory effort, unlabored. CHEST: Normal curvature. No thoracic deformity. No chest wall tenderness. Percussion, resonant. Auscultation, clear. No wheezes, no rales, no rhonchi. CARDIOVASCULAR: Precordial exam, nondisplaced. No heaves or pericardial thrills. Rate and rhythm, regular. Heart sounds, normal S1, normal S2. No S3, no gallop, no rub. Systolic murmur, not heard. Diastolic murmur, not heard. EXTREMITIES: No cyanosis, no edema. Peripheral pulses, full and equal in all extremities, except as noted. No bruits appreciated. ABDOMEN: Soft, nondistended. Normal aorta. No bruit. Nontender. No masses. Liver, nontender, no hepatomegaly. Spleen, nontender, no splenomegaly. MUSCULOSKELETAL: No joint tenderness. No joint swelling. No erythema. NEUROLOGICAL: Normal gait, normal strength, normal tone. SKIN: Warm and dry. OVERALL IMPRESSION: Multiple cardiac problems; however, he is stable at this time. No other cardiac workup or treatment is necessary. TRANSINT:[id number] Voice Confirmation ID: [id number] DOCUMENT ID: [id number] CONSULT REPORT [id number] THADDEUS WEAVER, HUSSEIN SANCHEZ at 0903 CC: [id number] DICTATION DATE: 03/14/17 1145 JAR CAPPER: 03/14/17 1205 ADM IN [place] [id number] [place] [address]
[2017-03-15 11:29] VITALS: BP 108/78
--- NOTE | 2017-03-15 12:44 | NUR ---
NUTRITION F/U PT VISIT. TOLERATING FULL LIQUID DIET. WILL CONTINUE TO MONITOR DIET ADVANCEMENT, PO INTAKE. RD FOLLOWING
[2017-03-15 16:14] VITALS: BP 126/78
[2017-03-15 20:00] VITALS: BP 130/75
[2017-03-16 04:00] VITALS: BP 105/68
[2017-03-16 05:51] LABS: CALCIUM 8.7 mg/dL (8.5-10.1); CARBON DIOXIDE 31.8 mmol/L (21.0-32.0); CREATININE - SERUM 1.2 mg/dL (0.6-1.3)
[2017-03-16 06:00] LABS: ANION GAP 11.2 mmol/L (8-16)
[2017-03-16 09:27] VITALS: BP 92/56
--- NOTE | 2017-03-16 09:30 | NUR ---
PATIENT IN BED AT THIS TIME WITH INFUSA PORT CLOTTED OFF. LEAKING OUT OF TUBING. TRIED TO FLUSH WITH NO SUCCESS. REMOVED AT THIS TIME. PATIENT WANTS TO LEAVE OUT BC STATED HE IS GOING HOME TODAY. SPOKE WITH DR. SALINAS ABOUT MEDS TO PO AND LEAVING OUT PORT ACCESS WELL DR. MONTIEL AND DR. WASHINGTON FOR ANTIBIOTICS PO. NEW ORDERS RECIEVED AND CARRIED OUT. CALL LIGHT WITHIN REACH.
[2017-03-16 09:56] LABS: BASOPHILS 0.2 % (0-2); EOSINOPHILS 4.9 % (0-7); HEMATOCRIT 39.2 % (42.0-54.0); HEMOGLOBIN 12.6 g/dL (13.5-17.5); IMMATURE GRANULOCYTES 0.2 % (0-5); LYMPHOCYTES 33.2 % (15-50); MCH 30.3 pg (26.0-34.0); MCHC 32.1 g/dL (31.0-37.0); MCV 94.2 fL (80.0-100.0); MEAN PLATELET VOLUME 9.4 fL (7.4-10.4); MONOCYTES 14.3 % (2-11); NEUTROPHILS 47.2 % (40-80); PLATELET COUNT 231 10x3/uL (130-400); RBC 4.16 10x6/uL (4.20-6.10); RDW 14.1 % (11.5-14.5); WBC 5.5 10x3/uL (4.8-10.8)
[2017-03-16 11:23] LABS: CREATINE KINASE 194 UL (21-232); TROPONIN-I 0.036 ng/mL (0.000-0.060)
[2017-03-16 13:08] VITALS: BP 107/76
[2017-03-16 15:01] LABS: CKMB 1.1 U/L (0.0-3.6); CREATINE KINASE 205 UL (21-232)
--- NOTE | 2017-03-16 15:43 | CN ---
PATIENT NAME:THADDEUS WEAVER MEDICAL RECORD: [id number] : 49 LOCATION:D.MS Long2206 ADMIT DATE: 03/12/17 ACCOUNT: [id number] CONSULTING PHYSICIAN: THADDEUS ARAUZ MD REFERRING PHYSICIAN: CHRISTIANO CLARK MD DATE OF CONSULTATION: 03/10/2017 This is a consultation note addendum. CHIEF COMPLAINT: Pain. HISTORY OF PRESENT ILLNESS: The patient presents with symptoms that are consistent with a bowel obstruction. I personally reviewed his plain film x-ray images. The patient states that Dr. Kramer has operated on him in the past. He states that it was in the left lower quadrant. I cannot pull up this operative report. I have spoken with Dr. Clark personally regarding this patient's presentation. His primary care physician is Dr. Paul. The patient developed abdominal pain as well as nausea and vomiting, which started last night. The pain is mainly in the left lower quadrant. I detect no incisional hernia. I detect no left inguinal hernia. Palpation aggravates. Nothing alleviates. I have ordered a CT scan with IV and oral contrast for tonight. Dr. Kramer is covering for the next few days. This is a consultation note addendum. For the typed portion of the consult note, please see the chart. This will include the past medical and surgical history, allergies, current medications, social history as well as family history. REVIEW OF SYSTEMS: Positive for abdominal pain. Positive for nausea and vomiting. No shortness of breath, no chest pain, no headache. Review of systems is negative other than as is described above. PHYSICAL EXAMINATION: GENERAL: The patient appears acutely ill. He does not appear chronically ill. VITAL SIGNS: Reviewed. EARS: External ears appear normal. EYES: Extraocular movements are intact. NECK: Trachea is midline. CHEST: No intercostal retractions. PULMONARY: Nonlabored, no stridor. ABDOMEN: Tenderness without peritonitis. No peritonitis to percussion. EXTREMITIES: No peripheral cyanosis. INTEGUMENT: No rash, no ulcerations. PSYCHIATRIC: Anxious affect. NEUROLOGIC: Answers questions appropriately. BACK: No thoracic kyphosis. LYMPHATICS: No lymphangitic streaking of the exposed extremities. IMPRESSION: Ileus versus small-bowel obstruction, I would favor the diagnosis of a small-bowel obstruction. PLAN: CT scan with IV and oral contrast tonight. TRANSINT:[id number] Voice Confirmation ID: [id number] DOCUMENT ID: [id number] CONSULT REPORT [id number] THADDEUS WEAVER, THADDEUS SANCHEZ at 1543 CC: [id number] DICTATION DATE: 03/10/17 164 VINYL WELDER AND FABRICATOR: 03/10/17 1817 ADM IN [place] [id number] [place] [id number]
[2017-03-16 17:01] VITALS: BP 115/65
--- NOTE | 2017-03-16 18:55 | NUR ---
PATIENT SITTING UP IN BED WITH NO COMPLAINTS. FRIEND AT BEDSIDE. CALL LIGHT WITHIN REACH.
[2017-03-16 20:00] VITALS: BP 128/62
--- NOTE | 2017-03-16 20:43 | NUR ---
AWAKE,ALERT,NO COMPLAINTS VOICED. ABD SOFT NONDISTENDED WITH BOWEL SOUNDS PRESENT..CL IN REACH. FRIEND AT BEDSIDE.
[2017-03-16 20:53] LABS: CKMB 0.9 U/L (0.0-3.6); CREATINE KINASE 176 UL (21-232); TROPONIN-I 0.028 ng/mL (0.000-0.060)
--- NOTE | 2017-03-16 23:25 | NUR ---
ATTEMPT PERIPHERAL IV UNSUCCESSFUL. ACCESSED RT INFUSAPORT WITH 19G. 1.5 INCH SANTORO NEEDLE UNDER STERILE FIELD. GOOD BLOOD RETURN NOTED. CATHETER FLUSHED WITH NS. STERIL DRESSING APPLIED.
--- NOTE | 2017-03-17 02:00 | NUR ---
PT UP TO BATHROOM AT THIS TIME. NO NEEDS ARE VOICED. SIDE RAILS X 2. BED LOW. CALL LIGHT IN REACH.
--- NOTE | 2017-03-17 05:06 | NUR ---
AWAKEN FOR AM MEDS. NO COMPLIANTS VOICED.. CL IN REACH. FAMILY AT BEDSIDE
[2017-03-17 06:57] LABS: BASOPHILS 0.2 % (0-2); EOSINOPHILS 1.4 % (0-7); HEMATOCRIT 38.6 % (42.0-54.0); HEMOGLOBIN 12.9 g/dL (13.5-17.5); IMMATURE GRANULOCYTES 0.4 % (0-5); LYMPHOCYTES 43.2 % (15-50); MCH 30.7 pg (26.0-34.0); MCHC 33.4 g/dL (31.0-37.0); MONOCYTES 15.5 % (2-11); NEUTROPHILS 39.3 % (40-80); PLATELET COUNT 200 10x3/uL (130-400); RDW 13.9 % (11.5-14.5); WBC 5.7 10x3/uL (4.8-10.8)
[2017-03-17 07:16] LABS: MCV 91.9 fL (80.0-100.0)
[2017-03-17 07:21] LABS: ALBUMIN 3.3 g/dL (3.4-5.0); ANION GAP 12.8 mmol/L (8-16); BILIRUBIN - TOTAL 0.54 mg/dL (0.2-1.3); CALCIUM 8.4 mg/dL (8.5-10.1); CARBON DIOXIDE 29.2 mmol/L (21.0-32.0); CREATININE - SERUM 1.1 mg/dL (0.6-1.3)
[2017-03-17 08:04] VITALS: BP 96/57
--- NOTE | 2017-03-17 09:30 | NUR ---
PORT ACCESSED USING STONE RIGGER 20G NEEDLE.BLOOD RETURN CONFIRMED
--- NOTE | 2017-03-17 11:38 | CN ---
PATIENT NAME:THADDEUS WEAVER MEDICAL RECORD: [id number] : 49 LOCATION:D.MS Long220 ADMIT DATE: 03/12/17 ACCOUNT: [id number] CONSULTING PHYSICIAN: ROXY WASHINGTON MD REFERRING PHYSICIAN: ADI CLARK MD DATE OF CONSULTATION: 03/11/2017 CONSULT REQUESTING PHYSICIAN: Adi Clark MD REASON FOR CONSULTATION: Acute dyspnea. HISTORY OF PRESENT ILLNESS: Ms. Weaver is a 71-year-old gentleman who has a history of congestive heart failure who was admitted yesterday with abdominal pain and nausea and vomiting. Last night, he has episode of shortness of breath and he has another one today. Probably, he was thinking that he might have ALLERGY TO DILAUDID. According to the patient, he had no fever or chills, no night sweats. He has some orthopnea. He has abdominal pain. He is also hurting left side of the chest wall for the last 10 years since his accident and broken rib. REVIEW OF SYSTEMS: Mainly in the history of present illness. PAST MEDICAL HISTORY: 1. Coronary artery disease. 2. Chronic hypoxic respiratory failure. 3. Congestive heart failure with EF of 45% to 50%. 4. History of atrial fibrillation. 5. Status post ICD placement. 6. Hyperlipidemia. 7. Gastroesophageal reflux disease. 8. History of DVT of the lower extremities. 9. Chronic kidney disease. 10. Bipolar disorder. 11. BPH. 12. History of cerebrovascular accident. 13. History of attention deficit hyperactivity disorder. PAST SURGICAL HISTORY: 1. He is status post ICD placement. 2. Cholecystectomy. 3. Appendectomy. 4. Hernia repair times 2. 5. Aortic valve replacement. ALLERGIES: HE IS ALLERGIC TO HYDROMORPHONE AND DEMEROL. MEDICATIONS: Selltag was reviewed. PERSONAL AND SOCIAL HISTORY: The patient is and he lives with his . He is an ex-smoker. He is a nondrinker. FAMILY HISTORY: Significant for cardiovascular disease. PHYSICAL EXAMINATION: GENERAL: Now, the patient is lying comfortable, but he is not in acute CONSULT REPORT [id number] THADDEUS WEAVER distress. VITAL SIGNS: The blood pressure is 107/57, pulse is 90, respirations 16, temperature 99, SPO2 95% on 2 liters nasal cannula. HEENT: Conjunctivae are pink. Sclerae nonicteric. NECK: Supple. No JVD. CHEST: Bilateral crackles, wheeze on forceful expiration. HEART: Rhythm regular, normal sound, no murmur. ABDOMEN: Soft, bowel sounds were muffled, is tender on deep palpation. RECTAL: Deferred. EXTREMITIES: No cyanosis. No clubbing. There are 2+ pedal edema. SKIN: Warm, normal turgor. CENTRAL NERVOUS SYSTEM: The patient is awake and alert. There is no obvious cranial nerve abnormality. The gait was not tested. IMAGING: Chest radiograph, there is increased interstitial markings bilaterally. There is cardiomegaly. There are bibasilar opacities with possible trace pleural effusions. OTHER LABORATORY DATA: CBC: WBC 9.6, hemoglobin 12.6, hematocrit 39.2, the platelet count of 219. IMPRESSION: 1. Bdonq-of-lhjgfmu hypoxic respiratory failure. 2. Acute exacerbation of chronic obstructive pulmonary disease. 3. Zpbuh-pe-zlvcirr congestive heart failure with systolic dysfunction. 4. Possible aspiration pneumonia secondary to nausea and vomiting. 5. Ileus. 6. Nausea and vomiting secondary to ileus. 7. Gastroesophageal reflux disease. RECOMMENDATION: 1. Decrease the IV fluids, start him on Lasix, check a proBNP, start him on Zosyn to cover for aspiration pneumonia, gram-negative gilma. 2. Albuterol ipratropium nebulizer. 3. We will follow up labs and chest radiograph. Dr. Clark thank you for involving me in the care of Ms. Weaver. TRANSINT:[id number] Voice Confirmation ID: [id number] DOCUMENT ID: [id number] ROXY WASHINGTON MD at 1138 CC: LYNN HYMAN MD [id number] DICTATION DATE: 03/11/17 1615 SUPERVISOR VEGETABLE FARMING: 03/11/17 1712 ADM IN [place] [id number] [place] [address]
[2017-03-17 16:09] VITALS: BP 105/75
--- NOTE | 2017-03-17 17:00 | NUR ---
CALLED TO ROOM TO LOOK AT PORT FOR ACCESSING.SLIGHT SWELLING NOTED TO PORT SITE,AREA IS SOFT.SMALL RAISED AREA ABOVE PORT NOTED.DID NOT ATTEMPT ACCESS. GENESIS SEAY RN TO COME AND LOOK AT PORT SITE.
[2017-03-17 20:00] VITALS: BP 104/47
[2017-03-18 04:00] VITALS: BP 110/52
[2017-03-18 05:17] LABS: BASOPHILS 0.3 % (0-2); EOSINOPHILS 3.5 % (0-7); HEMATOCRIT 35.2 % (42.0-54.0); HEMOGLOBIN 11.4 g/dL (13.5-17.5); IMMATURE GRANULOCYTES 0.5 % (0-5); LYMPHOCYTES 40.3 % (15-50); MCH 30.1 pg (26.0-34.0); MCHC 32.4 g/dL (31.0-37.0); MCV 92.9 fL (80.0-100.0); MEAN PLATELET VOLUME 9.1 fL (7.4-10.4); MONOCYTES 15.1 % (2-11); NEUTROPHILS 40.3 % (40-80); PLATELET COUNT 206 10x3/uL (130-400); RBC 3.79 10x6/uL (4.20-6.10)
[2017-03-18 05:47] LABS: BILIRUBIN - TOTAL 0.4 mg/dL (0.2-1.3); CARBON DIOXIDE 29.4 mmol/L (21.0-32.0); CREATININE - SERUM 1.1 mg/dL (0.6-1.3); POTASSIUM - SERUM 3.4 mmol/L (3.5-5.1); PROTEIN - SERUM 6.7 g/dL (6.4-8.2)
--- NOTE | 2017-03-18 06:19 | NUR ---
40 MEQ K-DUR ADMINISTERED AT THIS TIME PER ELECTROLYTE PROTOCOL. K+ 3.4
--- NOTE | 2017-03-18 07:00 | NUR ---
REPORT RECIEVED ASSUMED CARE. PATIENT IN BED WITH IV INTACT. NO COMPLAINTS AT THIS TIME. IV INTACT. CALL LIGHT WITHIN REACH.
[2017-03-18 08:16] VITALS: BP 102/51
[2017-03-18 12:14] VITALS: BP 102/43
--- NOTE | 2017-03-18 13:25 | NUR ---
NUTRITION F/U REG DIET. PT WITH MINIMAL PO INTAKE LUNCH. PT STATES HE IS "A LITTLE NERVOUS BECAUSE I'M HAVING SURGERY TOMORROW". WILL MONITOR DIET ADVANCEMENT AFTER SURGERY, PT PROGRESS. ASSIST WITH NUTRITION SUPPORT IF NEEDED. RD FOLLOWING
[2017-03-18 15:38] VITALS: BP 113/58
--- NOTE | 2017-03-18 18:08 | NUR ---
PATIENT SITTING UP IN BED WITH IV INTACT. NO COMPLAINTS. EXPLAINED NPO PAST MN. VERBALIZED UNDERSTANDING. CONSENTS SIGNED. FAMILY AT BEDSIDE. CALL LIGHT WITHIN REACH.
--- NOTE | 2017-03-18 19:47 | NUR ---
PT RESTING QUIETLY AT THIS TIME. DENIES ANY OTHER NEEDS, STATES HE WOULD LIKE TO SLEEP. CALL LIGHT IN REACH, WILL CONTINUE TO MONITOR.
[2017-03-18 20:00] VITALS: BP 99/56
[2017-03-19] VITALS (12 sets, daily range): BP systolic 97–134; BP diastolic 45–93
[2017-03-19 05:37] LABS: ALBUMIN 3.2 g/dL (3.4-5.0); ANION GAP 12.2 mmol/L (8-16); BILIRUBIN - TOTAL 0.46 mg/dL (0.2-1.3); CALCIUM 8.9 mg/dL (8.5-10.1); CARBON DIOXIDE 29.3 mmol/L (21.0-32.0); CREATININE - SERUM 1.1 mg/dL (0.6-1.3); POTASSIUM - SERUM 3.5 mmol/L (3.5-5.1); PROTEIN - SERUM 7.2 g/dL (6.4-8.2)
[2017-03-19 05:43] LABS: HEMATOCRIT 36.8 % (42.0-54.0); HEMOGLOBIN 12.3 g/dL (13.5-17.5); LYMPHOCYTES 43.8 % (15-50); MCH 30.1 pg (26.0-34.0); MCHC 33.4 g/dL (31.0-37.0); MEAN PLATELET VOLUME 8.7 fL (7.4-10.4); NEUTROPHILS 39.3 % (40-80); PLATELET COUNT 230 10x3/uL (130-400); RBC 4.09 10x6/uL (4.20-6.10); RDW 13.5 % (11.5-14.5); WBC 4.3 10x3/uL (4.8-10.8)
--- NOTE | 2017-03-19 08:13 | NUR ---
AWAKE AND ALERT. ORIENTED X3. LUNGS ARE CLEAR BILATERALLY, NO COUGH NOTED. SKIN IS INTACT WITHOUT REDNESS. RIGHT PORT IS PATENT WITHOUT REDNESS AT INSERTION SITE. C/O INTENSE HEADACHE AND ABDOMINAL PAIN LEVEL 9. REQUESTEED AND GIVEN 2 HYDROCODONE PO AND 0.5 MG ATIVAN SLOW IVP FOR SAME. PATIENT WAS STARTING TO SHOW SIGNS OF ANXIETY WELL PAIN. WILL MONITOR.
--- NOTE | 2017-03-19 11:25 | NUR ---
REQUESTED AND GIVNE 1MG MORPHINE SLOW IVP FOR C/O HEADACHE AND ABDOMINAL PAIN LEVEL"20". WILL MONITOR.
--- NOTE | 2017-03-19 13:44 | NUR ---
OFF UNIT VIA BED TO SURGERY.
--- NOTE | 2017-03-19 13:55 | NUR ---
[facility] LISTED HOME MEDICATION, DATE AND TIME OF LAST DOSE UNKNOWN
--- NOTE | 2017-03-19 20:30 | NUR ---
AROUSES EASILY TO VERBAL STIMULI. NO COMPLAINTS VOICED AT PRESENT. STERI STRIPS INTACT TO ABD INCISIONS. NO DRAINAGE NOTED. CL IN REACH. FAMILY AT BEDSIDE.
--- NOTE | 2017-03-19 23:25 | NUR ---
PATIENT IS RESTING QUIETLY WITH EYES CLOSED. NO SIGNS OF DISTRESS NOTED. RESPIRATIONS ARE EVEN AND UNLABORED. HOB 30 DEGREES. FEMALE SITTING IN RECLINER, ASLEEP.
[2017-03-20] VITALS: BP 107/66
--- NOTE | 2017-03-20 02:06 | NUR ---
EYES CLOSED RESP EVEN AND UNLAOBRED. NO DISTRESS NOTED. CL IN REACH. FAMILY AT BEDSIDE.
[2017-03-20 04:00] VITALS: BP 99/47
--- NOTE | 2017-03-20 04:14 | NUR ---
MORPHINE 1 MG GIVEN FOR COMPLAINTS OF ABD PAIN. NO FUTHER COMPLAINTS. CL IN REACH
[2017-03-20 04:50] LABS: BASOPHILS 0.4 % (0-2); EOSINOPHILS 2.2 % (0-7); HEMATOCRIT 35.4 % (42.0-54.0); HEMOGLOBIN 11.6 g/dL (13.5-17.5); IMMATURE GRANULOCYTES 0.2 % (0-5); LYMPHOCYTES 36.1 % (15-50); MCH 30.4 pg (26.0-34.0); MCHC 32.8 g/dL (31.0-37.0); MEAN PLATELET VOLUME 8.9 fL (7.4-10.4); MONOCYTES 12.9 % (2-11); NEUTROPHILS 48.2 % (40-80); PLATELET COUNT 207 10x3/uL (130-400); RBC 3.81 10x6/uL (4.20-6.10); RDW 14.2 % (11.5-14.5)
[2017-03-20 04:52] LABS: MCV 92.9 fL (80.0-100.0)
[2017-03-20 05:12] LABS: ANION GAP 11.7 mmol/L (8-16); BILIRUBIN - TOTAL 0.47 mg/dL (0.2-1.3); CALCIUM 8.2 mg/dL (8.5-10.1); CARBON DIOXIDE 29.9 mmol/L (21.0-32.0); CREATININE - SERUM 1.1 mg/dL (0.6-1.3); POTASSIUM - SERUM 3.6 mmol/L (3.5-5.1); PROTEIN - SERUM 6.8 g/dL (6.4-8.2)
--- NOTE | 2017-03-20 07:32 | NUR ---
AWAKE AND ALERT. ORIENTED X3. REQUESTED AND GIVEN 2 HYDROCODONE PO FOR C/O ABDOMINAL PAIN LEVEL 8. WILL MONITOR. LUNGS ARE CLEAR BILATERALLY, NO COUGH NOTED. SKIN IS INTACT WITHOUT REDNESS. RIGHT PORT IS PATENT WITHOUT REDNESS AT ISNERTION SITE. FAMILY AT BEDSIDE. DENIES NEEDS. SCD'S OFF AT THIS TIME.
[2017-03-20 09:13] VITALS: BP 109/48
--- NOTE | 2017-03-20 10:10 | NUR ---
REQUESTED AND GIVEN 15 MG OXY IR PO FOR PAIN MANAGEMENT PRIOR TO THERAPY.
[2017-03-20] MEDS ORDERED: K-DUR20 MEQ PO (10:31)
[2017-03-20] MEDS ORDERED: HYDROCODONE-APA1 TAB PO (10:31)
[2017-03-20 13:16] VITALS: BP 112/50
--- NOTE | 2017-03-20 13:26 | NUR ---
Patient requested letter for return to work. CM letter provided with actual MD discharge orders for the patient. Plan for discharge to home today.
--- NOTE | 2017-03-20 13:30 | NUR ---
DISCHARGED TO HOME AMBULATORY WITH [facility]. DISCHARGE INSTRUCTIONS GIVEN BOTH VERBALLY AND WRITTEN. ALL QUESTIONS ANSWERED. PATIENT VERBALIZED UNDERSTANDING OF SAME. NEEDED PRESCRIPTIONS GIVEN TO PATIENT AND ESCRIBED TO PHARMACY OF CHOICE. RIGHT PORT HEPRANIZED AND DEACCESSED WITHOUT DIFFICULTY. ALL BELONGINGS WITH PATIENT.
--- NOTE | 2017-03-21 21:10 | OP ---
PATIENT NAME: THADDEUS WEAVER MEDICAL RECORD: [id number] :47 LOCATION:D.MS Long2206 ADMISSION DATE:03/12/17 SURGEON: MAY SALINAS MD DATE OF OPERATION: 03/19/2017 DATE OF OPERATION: 03/19/2017 PREOPERATIVE DIAGNOSIS: Small-bowel obstruction. POSTOPERATIVE DIAGNOSIS: Small-bowel obstruction. PROCEDURE PERFORMED: Laparoscopic lysis of adhesions. ANESTHESIA: General. SURGEON: May Salinas MD COMPLICATIONS: None. Case was clean. ESTIMATED BLOOD LOSS: 20 cc. OPERATIVE COURSE: After consent was obtained, the patient was taken to the operating room and placed in the supine position on the operating table. Next, general anesthesia was given via endotracheal intubation. Thereafter, a timeout was taken to confirm the correct patient and procedure. The abdomen was then prepped and draped in the typical sterile fashion. Next, local anesthetic was injected in the left upper quadrant at Teran's point. A stab incision was made with 11-blade scalpel. Using a 5-mm bladeless optical trocar, the abdomen was entered under direct laparoscopic vision. Adequate pneumoperitoneum was achieved. There were significant adhesions of the greater omentum. The patient had previous incisional hernia repair. There was a well-integrated mesh within the ventral abdominal wall. Lysis of adhesions was performed of the greater omentum from the anterior abdominal wall. There was one loop of tethered small bowel, it was taken down with sharp scissor dissection. Next, based on preoperative imaging, there was some tethered bowel in the right lower quadrant. The cecum was identified. The tail of Moon was identified. The small bowel was run from the terminal ileum to the ligament of Treitz. There was 5-6 loops of densely matted small bowel approximately 25 cm from the terminal ileum with decompressed terminal ileum, the proximal bowel was mildly dilated. There were no other areas of adhesion. Laparoscopic lysis of adhesions was performed. Once complete, the small bowel was again run from the terminal ileum to the ligament of Treitz. There was no evidence of bowel injury, no evidence of bleeding, no evidence of enterotomy. There was no bowel contamination within the abdomen. The abdomen was then copiously irrigated and suctioned. Again, the distal 50 cm of small bowel were run extensively from the terminal ileum to 50 cm proximal examining the area of lysis of adhesions. At this time, there were no bowel injuries identified. At this time, all instruments were removed. The abdomen was desufflated. Trocars were removed. Skin was closed with 4-0 Monocryl, Mastisol and Steri-Strips. At the end of the case, all needle and instrument counts were correct. No complications occurred. The patient was extubated and transferred to the PACU in stable condition. TRANSINT:[id number] Voice Confirmation ID: [id number] DOCUMENT ID: [id number] OPERATIVE REPORT [id number] THADDEUS WEAVER,MAY Addison MD at 2110 CC: [id number] DICTATION DATE: 03/19/17 1526 PLISSE MACHINE OPERATOR: 03/19/17 1728 DIS IN 03/20/17 [place] [id number] [place] [address]
--- NOTE | 2017-03-30 12:14 | EC ---
PATIENT:THADDEUS WEAVER DATE OF SERVICE: 03/12/17 SEX: M MEDICAL RECORD: [id number] DATE OF : [birth year] LOCATION:[facility] AGE OF PATIENT: 71 ADMISSION DATE: 03/12/17 REFERRING PHYSICIAN: INTERPRETING PHYSICIAN: HUSSEIN MACKEY MD ECHOCARDIOGRAM REPORT ECHO CHARGES 4 ECHO COMPLETE CLINICAL DIAGNOSIS: SYNCOPE ECHOCARDIOGRAPHIC MEASUREMENTS (adult normal given) AC root (d.<3.7cm) 3.1 cm LV Septum d (<1.2 cm> 1.2 cm Valve Excursion 1.3 cm LV Septum (systole) 1.5 cm Left Atria (s.<4.0cm> 4.3 cm LVPW d(<1.2cm) 1.2 cm RV (d.<2.3cm) 2.2 cm LVPW (sytole) 1.8 cm LV diastole(<5.6CM) 6.4 cm MV E-F(>70mm/sec) cm LV systole 4.8 cm LVOT Diameter 1.9 cm MV exc.(>10mm) cm Est.ejection fraction (50-75%) % Pericardial Effusion N DOPPLER: LVIT cm/sec A 95.0 cm/sec E 74.0 cm/sec LA cm/sec RVSP 45.0 mmHg LVOT 97.0 cm/sec AOP1/2T m/s Asc. Ao 110 cm/sec RVOT 100 cm/sec RA cm/sec PA 155 cm/sec AV Gradient Peak 4.9 mmHg AV Mean 2.3 mmHg AV Area 2.7 cm MV Gradient Peak 4.2 mmHg MV Mean 1.8 mmHg MV Area cm COMMENTS: Condenser Setter: 1 ADIN PÉREZDSOE Test Deskman: 1 Dr. Mackey TAPE# PACS DATE OF SERVICE: 03/13/2017 FINDINGS: 1. Left atrium size is mildly dilated. Left ventricular systolic function is moderately reduced, overall ejection fraction in the 35% range. 2. Left atrium is enlarged at 4.3 cm. Right atrium and right ventricular chamber sizes are as well mildly dilated. 3. Valvular structures have normal structure and motion. 4. Doppler interrogation reveals [id number] aortic insufficiency, moderate mitral regurgitation, mild tricuspid regurgitation, no other valvular ECHOCARDIOGRAM REPORT [id number] THADDEUS WEAVER insufficiency or stenosis. Pulmonary systolic pressure is only mildly elevated at 45 mmHg. 5. No evidence of pericardial effusion or left ventricular thrombus. TRANSINT:[id number] Voice Confirmation ID: [id number] DOCUMENT ID: [id number] 03/17/2017 Edited to correct date of service, dmm. HUSSEIN MACKEY MD at 1214 CC: [id number] DICTATION DATE: 03/14/17 1128 PHP DEVELOPER: 03/14/17 1204 DIS IN 03/20/[address] [address]
== END 2017-03-20 13:30 | disposition home or self-care (01) | DRG 335 ==
LOC: D.ER 07:32 → D.MS 10:37 → OBSVTIME 10:37 → D.MS 03-12 09:23
PROVIDERS: Emergency Medicine; Family Medicine; Internal Medicine Pulmonary Disease; Surgery; ADMIT Family Medicine Adult Medicine
PROC: 0DN84ZZ Release Small Intestine, Percutaneous Endoscopic Approach (ICD-10-PCS; principal; 2017-03-19 13:15)
DX: K56.51 Intestinal adhesions [bands], with partial obstruction (principal); I50.23 Acute on chronic systolic (congestive) heart failure; J96.21 Acute and chronic respiratory failure with hypoxia; I42.9 Cardiomyopathy, unspecified; J44.1 Chronic obstructive pulmonary disease with (acute) exacerbation; I13.0 Hypertensive heart and chronic kidney disease with heart failure and stage 1 through stage 4 chronic kidney disease, or unspecified chronic kidney disease; Z95.810 Presence of automatic (implantable) cardiac defibrillator; I25.10 Atherosclerotic heart disease of native coronary artery without angina pectoris; E78.5 Hyperlipidemia, unspecified; K21.9 Gastro-esophageal reflux disease without esophagitis; I08.3 Combined rheumatic disorders of mitral, aortic and tricuspid valves; N18.9 Chronic kidney disease, unspecified; K56.7 Ileus, unspecified

== ENCOUNTER 2017-05-29 10:28 | Emergency (ER) | payer BC, MEDICARE ==
[2017-03-13 10:28] VITALS: BMI 33.3
[~2017-05-29 10:28] MED LIST changes: +K-DUR20 MEQ PO
[2017-05-29 10:55] LABS: BASOPHILS 0.2 % (0-2); EOSINOPHILS 1.3 % (0-7); HEMATOCRIT 38.9 % (42.0-54.0); IMMATURE GRANULOCYTES 0.2 % (0-5); LYMPHOCYTES 25.8 % (15-50); MCH 30.1 pg (26.0-34.0); MCHC 33.4 g/dL (31.0-37.0); MONOCYTES 10.7 % (2-11); NEUTROPHILS 61.8 % (40-80); PLATELET COUNT 192 10x3/uL (130-400); RBC 4.32 10x6/uL (4.20-6.10); RDW 14.5 % (11.5-14.5); WBC 6.3 10x3/uL (4.8-10.8)
[2017-05-29 11:06] LABS: INR 3.01 (0.85-1.17); PROTIME 30.5 SECONDS (11.6-15.0)
[2017-05-29 11:13] LABS: ALBUMIN 3.7 g/dL (3.4-5.0); ALKALINE PHOSPHATASE 74 U/L (46-116); ALT (SGPT) 23 U/L (10-68); BILIRUBIN - TOTAL 0.45 mg/dL (0.2-1.3); CALC OSMOLALITY 283 mosm/kg (275-300); CALCIUM 8.7 mg/dL (8.5-10.1); CARBON DIOXIDE 30.2 mmol/L (21.0-32.0); CHLORIDE - SERUM 102 mmol/L (98-107); CREATININE - SERUM 1.1 mg/dL (0.6-1.3); GLUCOSE 115 mg/dL (74-106); POTASSIUM - SERUM 3.3 mmol/L (3.5-5.1); PROTEIN - SERUM 7.6 g/dL (6.4-8.2); SODIUM 140 mmol/L (136-145); UREA NITROGEN 23 mg/dL (7-18); eGFR NON AFRICAN AMERICAN 70 mL/min (90-120)
[2017-05-29 11:21] LABS: CHOL - HDL RATIO 3.8 ratio (2.3-4.9); CHOLESTEROL, TOTAL 184 mg/dL (0-200); CKMB 1.4 U/L (0.0-3.6); CREATINE KINASE 45 UL (21-232); HDL CHOLESTEROL 48 mg/dL (32-96); LDL CHOLESTEROL 101 mg/dL (0-100); LDL-HDL RATIO 2.1 ratio (1.5-3.5); TRIGLYCERIDE 175 mg/dL (30-200)
[2017-05-29 11:22] LABS: TROPONIN-I < 0.017 ng/mL (0.000-0.060)
== END 2017-05-29 12:16 | disposition home or self-care (01) ==
LOC: D.ER 10:28
PROVIDERS: Emergency Medicine
DX: I20.8 Other forms of angina pectoris (principal); R07.9 Chest pain, unspecified; R11.2 Nausea with vomiting, unspecified; R19.7 Diarrhea, unspecified; S39.012A Strain of muscle, fascia and tendon of lower back, initial encounter; W19.XXXA Unspecified fall, initial encounter; Y93.89 Activity, other specified; Y92.019 Unspecified place in single-family (private) house as the place of occurrence of the external cause; S22.089A Unspecified fracture of T11-T12 vertebra, initial encounter for closed fracture; I10 Essential (primary) hypertension

== ENCOUNTER → 2017-06-25 07:50 | Outpatient (CLI) | payer BC, MEDICARE ==
[2017-03-13 10:28] VITALS: BMI 33.3
[~2017-06-25 07:50] MED LIST changes: +LEVAQUIN750 MG PO; +MECLIZINE HCL25 MG PO; +ZANAFLEX4 MG PO
== END | disposition home or self-care (01) ==
LOC: D.NM 07:50
DX: S22.088A Other fracture of T11-T12 vertebra, initial encounter for closed fracture (principal); X58.XXXA Exposure to other specified factors, initial encounter; Y93.89 Activity, other specified; Y92.89 Other specified places as the place of occurrence of the external cause

== ENCOUNTER 2017-06-25 23:45 | Emergency (ER) | payer BC, MEDICARE ==
[2017-03-13 10:28] VITALS: BMI 33.3
[~2017-06-25 23:45] MED LIST changes: -LEVAQUIN750 MG PO; -MECLIZINE HCL25 MG PO; -ZANAFLEX4 MG PO
[2017-06-26 00:33] LABS: BASOPHILS 0.3 % (0-2); EOSINOPHILS 1.4 % (0-7); HEMOGLOBIN 12.2 g/dL (13.5-17.5); LYMPHOCYTES 37.4 % (15-50); MCHC 33.9 g/dL (31.0-37.0); MCV 88.5 fL (80.0-100.0); MEAN PLATELET VOLUME 8.9 fL (7.4-10.4); MONOCYTES 15.3 % (2-11); NEUTROPHILS 45.6 % (40-80); PLATELET COUNT 191 10x3/uL (130-400); RBC 4.07 10x6/uL (4.20-6.10); RDW 14.7 % (11.5-14.5); WBC 6.5 10x3/uL (4.8-10.8)
[2017-06-26 00:59] LABS: ALBUMIN 3.5 g/dL (3.4-5.0); ALKALINE PHOSPHATASE 82 U/L (46-116); ALT (SGPT) 19 U/L (10-68); CALC OSMOLALITY 274 mosm/kg (275-300); CALCIUM 8.4 mg/dL (8.5-10.1); CARBON DIOXIDE 29.5 mmol/L (21.0-32.0); CHLORIDE - SERUM 97 mmol/L (98-107); CREATININE - SERUM 1.1 mg/dL (0.6-1.3); GLUCOSE 124 mg/dL (74-106); POTASSIUM - SERUM 3.6 mmol/L (3.5-5.1); PROTEIN - SERUM 7.5 g/dL (6.4-8.2); SODIUM 136 mmol/L (136-145); UREA NITROGEN 18 mg/dL (7-18); eGFR NON AFRICAN AMERICAN 70 mL/min (90-120)
[2017-06-26 01:02] LABS: CKMB 0.7 U/L (0.0-3.6); CREATINE KINASE 51 UL (21-232); TROPONIN-I < 0.017 ng/mL (0.000-0.060)
[2017-06-26 01:36] LABS: APTT 55.1 SECONDS (22.8-39.4); INR 2.28 (0.85-1.17); PROTIME 24.5 SECONDS (11.6-15.0)
[2017-06-26 01:37] LABS: D-DIMER-QUANTITATIVE 1.76 ug/mLFEU (0.20-0.54)
[2017-06-26 01:44] LABS: MAGNESIUM - SERUM 2.3 mg/dL (1.8-2.4)
== END 2017-06-26 05:00 | disposition home or self-care (01) ==
LOC: D.ER 23:45
PROVIDERS: Family Medicine
DX: R07.9 Chest pain, unspecified (principal); H60.91 Unspecified otitis externa, right ear; I10 Essential (primary) hypertension

== ENCOUNTER 2017-07-21 17:26 | Observation (INO) | payer MEDICARE ==
[~2017-07-21] VITALS: Ht 172.7 cm; Wt 97.7 kg
--- NOTE | ~2017-07-21 | CN ---
PATIENT NAME:THADDEUS WEAVER MEDICAL RECORD: [id number] : [birth year] LOCATION:[facility] D.2115 ADMIT DATE: 07/21/17 ACCOUNT: [id number] CONSULTING PHYSICIAN: KARLA GASTON MD REFERRING PHYSICIAN: SEBATSIEN CONNOLLY MD DATE OF CONSULTATION: 07/22/2017 HISTORY OF PRESENT ILLNESS: A 72-year-old gentleman with a history of extensive cardiovascular history, status post bypass grafting intervention. Actually was seen in the office approximately a week ago with angina. Attempts were made at medical management; however, he has continued to have chest pain since then. Presented to the ER. Enzymes are negative. We are asked to see him concerning his cardiovascular status. PAST MEDICAL HISTORY: 1. History of coronary artery disease. 2. Cardiomyopathy. 3. Hypertension. 4. Hyperlipidemia. ALLERGIES: DEMEROL AND DILAUDID CAUSED MENTAL STATUS CHANGES. MEDICATIONS: Typically include warfarin per scale, atorvastatin 80 mg p.o. every day, carvedilol 6.25 every day, furosemide 40 every day, Zantac 300 b.i.d. SOCIAL HISTORY: Actually has developed a significant other at his apartment complex. Nonsmoker. Nondrinker. No set exercise program. REVIEW OF SYSTEMS: The patient reports easy bruising but reports no swollen glands. The patient reports no fever, no night sweats, no significant weight gain, no significant weight loss. No significant exercise tolerance. The patient reports no dry eyes, no irritation, no vision change. Patient reports no difficulty hearing and no ear pain. Patient reports no frequent nose bleeds or nose and sinus problems. Patient reports on arm pain on exertion. No shortness of breath while lying down. No history of heart murmur. Patient reports no cough, no wheezing or coughing up blood. Patient reports no abdominal pain, no vomiting. Normal appetite. No diarrhea and not vomiting blood. No nausea and no constipation. Patient reports no incontinence. No difficulty urinating. No hematuria. No increased frequency. Patient reports no muscle aches. No weakness, no arthralgias, no back pain. No swelling of the extremities. Patient reports no abnormal mole, no jaundice, no rashes. Reports no loss of consciousness. No weakness and no numbness. No seizures, dizziness, or headaches. The patient reports no depression, no sleep disturbance, feeling safe in a relationship and no alcohol abuse. Patient reports on fatigue. Reports no runny nose or sinus pressure. No itching, no hives, and no frequent sneezing. PHYSICAL EXAMINATION: GENERAL: Pleasant gentleman, in no acute distress. VITAL SIGNS: Blood pressure 131/72, pulse 89 and regular. HEENT: Normocephalic, atraumatic. NECK: No JVD or bruit. HEART: Regular. LUNGS: Lung nino are clear. ABDOMEN: Soft, nontender. CONSULT REPORT [id number] THADDEUS WEAVER EXTREMITIES: Pulses 2+. There is no edema. NEUROLOGIC: Grossly intact. IMPRESSION: Accelerated angina. PLAN: Plan for diagnostic angiography, intervention based on above. TRANSINT:[id number] Voice Confirmation ID: [id number] DOCUMENT ID: [id number] KARLA GASTON MD at 1155 CC: [id number] DICTATION DATE: 07/22/17820 MANAGER SUMMER: 07/22/17921 DIS IN 07/22/17 [id number] [place] [address]
--- NOTE | ~2017-07-21 | HEMODYNAMI ---
PATIENT:THADDEUS WEAVER MEDICAL RECORD: [id number] : 49 LOCATION:[facility] D.2115 ADMISSION DATE: 07/21/17 Generatedon:07/22/201715:51 Patient name: THADDEUS WEAVER Patient #: [id number] SSN: : 1945 Date of study: 07/22/2017 Page: Of Hemodynamic Procedure Report Patient Data Patient Demographics Procedure consent was obtained First Name: THADDEUS Gender: Male Last Name: MEG : 1945 [facility] Initial: T Age: 72 year(s) Patient #: [id number] Race: Additional ID: [id number] Contact details Address: [address] [place] [address] State: [place] City: [place] Zip code: [address] Past Medical History History of disease Date Diagnosis Comments CAD Allergies Allergen Reaction Date Comments Reported Demerol 05/21/2014 Morphine 07/15/2015 Demerol 06/23/2016 Morphine 06/23/2016 Other allergy 06/23/2016 DILAUDID Other allergy 11/17/2016 Demerol, Morphine, Dilaudid Other allergy 07/22/2017 Demerol, Dilaudid Admission Admission Data Admission Date: 07/21/2017 Admission Time: 22:17 Room #: [facility] Procedure Procedure Types Cath Procedure Diagnostic Procedure LHC LHC w/Coronaries w/Grafts Procedure Description Procedure Date Procedure Date: 07/22/2017 Procedure Start Time: 15:32 Procedure End Time: 15:47 Procedure Staff Name Function Nicholas London MD Performing Physician Kayleigh Redman RT Monitor Reanna Villareal RN Nurse Ludwin Ceron RT Monitor Bindu Oates RT Scrub Procedure Data Cath Procedure Fluoroscopy Diagnostic fluoroscopy Total fluoroscopy Time: 4.9 time: 4.9 min min Diagnostic fluoroscopy Total fluoroscopy dose: 264 dose: 264 mGy mGy Contrast Material Contrast Material Type Amount (ml) Isovue 300 81 Entry Location Entry Primary Successful Side Size Upsize Upsize Entry Closure Succes sful Closure Location (Fr) 1 (Fr) 2 (Fr) Remarks Device Remarks Femoral Right 5 Fr Exoseal artery Estimated blood loss: 10 ml Diagnostic catheters Device Type Used For End Catheter Placement MULTIPACK JL 4.0 5Fr Left Coronary catheter Angiography MULTIPACK 3DRC 5Fr Right Coronary catheter Angiography DIAGNOSTIC AR MOD 5Fr Procedure Catheter (804109M) MULTIPACK Pigtail 5 Fr Procedure catheter Procedure Complications No complications Procedure Medications Medication Administration Route Dosage Oxygen NC 4 l/min Lidocaine 2% added to field 20 Heparin Flush Bag added to field 2 bags (1000units/500ml NS) 0.9% NaCl I.V. 100 ml/hr Versed I.V. 2 mg Fentanyl I.V. 100 mcg Versed I.V. 1 mg Fentanyl I.V. 100 mcg Versed I.V. 1 mg Fentanyl I.V. 50 mcg Versed I.V. 1 mg Fentanyl I.V. 50 mcg Versed I.V. 1 mg Fentanyl I.V. 50 mcg Fentanyl I.V. 50 mcg Hemodynamics Rest Heart Rate: 97 (bpm) Pressure Samples Time Site Value (mmHg) Purpose Heart Use Rate(bpm) 15:44 LV 116/15,16 Snapshot 97 15:44 AO 111/42(72) Pullback 96 Gradients Valve Time Site Site 2 Mean SEP/DFP Peak To Heart Use 1 (mmHg) (sec/min) Peak Rate (mmHg) (bpm) Aortic 15:44 LV AO 10 23 96 111/42(72) Calculations Valve P-P Mean Valve Index Valve Source Name Gradient Area Flow (cm2) Aortic 10 10 Snapshots Pre Cath Intra NCS Post Cath Vital Signs Time Heart Resp SPO2 etCO2 NIBP (mmHg) Rhythm Pain Sedation Rate (ipm) (%) (mmHg) Status Level (bpm) 15:20:31 102 14 98 0 162/89(122) NSR 0 (11) 10(A) , No pain 15:24:43 88 15 95 0 126/75(104) NSR 0 (11) 10(A) , No pain 15:28:54 92 18 94 0 121/72(99) NSR 0 (11) 10(A) , No pain 15:33:06 90 16 94 0 124/74(99) NSR 0 (11) 9(A) , No pain 15:37:18 94 14 93 0 129/77(103) NSR 0 (11) 9(A) , No pain 15:41:28 98 15 94 0 127/79(103) NSR 0 (11) 9(A) , No pain 15:45:40 96 16 94 0 116/70(97) NSR 0 (11) 9(A) , No pain 15:50:31 95 18 94 0 121/72(92) NSR 0 (11) 10(A) , No pain Medications Time Medication Route Dose Verified Delivered Reason Notes E ffectiveness by by 15:22:49 Oxygen NC 4 l/min Nicholas Buffie [facility] smoother 15:23:01 Lidocaine 2% added 20ml Nicholas Nicholas for local to vial [facility] anesthetic field MD SANCHEZ 15:23:09 Heparin Flush added 2 bags Nicholas Nicholas used for Bag to [facility] procedure (1000units/500ml field MD SANCHEZ NS) 15:23:19 0.9% NaCl I.V. 100ml/hr Nicholas Buffie [facility] physician 15:24:26 Versed I.V. 2 mg Nicholas Buffie for Lita Villareal RN sedation 15:24:31 Fentanyl I.V. 100 mcg Nicholas Buffie for Lita Villareal RN sedation 15:28:01 Versed I.V. 1 mg Nicholas Buffie for Lita Villareal RN sedation 15:28:07 Fentanyl I.V. 100 mcg Nicholas Buffie for Lita Villareal RN sedation 15:33:31 Versed I.V. 1 mg Nicholas Buffie for Lita Villareal RN sedation 15:33:35 Fentanyl I.V. 50 mcg Nicholas Buffie for Lita Villareal RN sedation 15:37:38 Versed I.V. 1 mg Nicholas Buffie for Lita Villareal RN sedation 15:37:41 Fentanyl I.V. 50 mcg Nicholas Buffie for Lita Villareal RN sedation 15:41:21 Versed I.V. 1 mg Nicholas Buffie for Lita Villareal RN sedation 15:41:25 Fentanyl I.V. 50 mcg Nicholas Buffie for Lita Villareal RN sedation 15:44:19 Fentanyl I.V. 50 mcg Nicholas Buffie for Lita Villareal RN sedation Procedure Log Time Note 15:09:34 Diagnostic Cath status Elective 15:09:36 Kayleigh Redman RT(R) sent for patient. Start room use. 15:09:37 Time tracking: Regular hours 15:09:46 Plan of Care:Hemodynamics will remain stable., Cardiac rhythm will remain stable., Comfort level will be maintained., Respiratory function will remain adequate., Patient/ family verbilizes understanding of procedure., Procedure tolerated without complication., Recovers from procedure without complications.. 15:09:53 Patient received from Med II to CCL 2 Alert and oriented. Tansferred to table in Supine position. 15:09:54 Warm blankets applied, and lily hugger turned on for patient comfort. 15:09:55 Correct patient and procedure confirmed by team. 15:09:57 Signed procedure consent form obtained from patient. 15:10:07 H&P Date Dictated: 07/21/2017 Within 30 days and on chart., H&P Addendum completed by physician on day of procedure. (MUST COMPLETE FOR ALL OUTPATIENTS). 15:10:11 Pre-procedure instructions explained to patient. 15:10:17 Family in patients room. 15:10:20 Patient NPO since Midnight. 15:11:09 Patient allergic to Other allergyDemerol, Dilaudid 15:11:13 Was the patient premedicated? Yes 15:18:25 Vital chart was started 15:21:03 Is patient on blood thinner?Yes 15:21:08 ACC The patient was administered the following blood thiners within the last 24 hours: Coumadin 15:21:11 Patient diabetic? No. 15:21:13 Previous problem with sedation/anesthesia? No ? 15:21:15 Snore? Yes 15:21:17 Sleep apnea? No 15:21:19 Deviated septum? No 15:21:20 Opens mouth fully? Yes 15:21:21 Sticks out tongue? Yes 15:21:29 Airway obstruction? No ? 15:21:31 Dentures? No ? 15:21:35 Pre procedure: right dorsailis pedis pulse 1+ Palpable, but thready & weak; easily obliterated 15:21:38 Pre procedure: left dorsailis pedis pulse 1+ Palpable, but thready & weak; easily obliterated 15:21:40 Patient pain scale 0/10 ?. 15:22:49 Oxygen 4 l/min NC was administered by Reanna Villareal RN; used for procedure; 15:22:49 IV patent on arrival in right forearm with 0.9% NaCl at O. 15:22:52 Lab results completed and on chart. 15::58 Right groin area was prepped with chlora-prep and draped in sterile fashion 15::59 Alarms reviewed by R. N. 15::59 Sharps counted by scrub and verified by R.N. 15:23: Lidocaine 2% 20ml vial added to field was administered by Nicholas London MD; for local anesthetic; 15:23: Physician arrived 15::03 --------ALL STOP TIME OUT------ 15::03 Final Timeout: patient, procedure, and site verified with staff and physician. All members of the team are in agreement. 15:23:06 Right groin site verified by team. 15:23:09 Heparin Flush Bag (1000units/500ml NS) 2 bags added to field was administered by Nicholas London MD; used for procedure; 15:23: Physical assessment completed. ASA score P 2 - A patient with mild systemic disease as per Nicholas London MD. 15:23:13 Sedation plan: IV Moderate Sedation Medication:Versed, Fentanyl 15:23:19 0.9% NaCl 100ml/hr I.V. was administered by Reanna Villareal RN; Per physician; 15:23:21 Use device set Femoral Dx 15:23:22 ACIST Syringe (84236) opened to sterile field. 15:23:22 Bag Decanter (2002) opened to sterile field. 15:23:23 Medline Cath Pack ([id number]) opened to sterile field. 15:23:23 SHEATH 5FR Tipton (QNT733) opened to sterile field. 15:23:24 DIAGNOSTIC WIRE .035 260cm J wire (254072) opened to sterile field. 15:23:25 ACIST Hand Control (80855) opened to sterile field. 15:23:25 ACIST Manifold (90830) opened to sterile field. 15:23:26 DIAGNOSTIC Multipack 5Fr catheter set (RE6248) opened to sterile field. 15:23:26 Tegaderm 4 x 4 (1626W) opened to sterile field. 15:24:26 Versed 2 mg I.V. was administered by Buffie Villareal RN; for sedation; 15:24:31 Fentanyl 100 mcg I.V. was administered by Reanna Villareal RN; for sedation; 15:28:01 Versed 1 mg I.V. was administered by Reanna Villareal RN; for sedation; 15:28:07 Fentanyl 100 mcg I.V. was administered by Reanna Villareal RN; for sedation; 15:31:30 Procedure started. 15:31:30 Full Disclosure recording started 15:32:51 Local anesthetic to right femoral artery with Lidocaine 2% by Nicholas London MD.INITIAL ACCESS ONLY 15:33:07 A 5 Fr sheath was inserted into the Right Femoral artery 15:33:31 Versed 1 mg I.V. was administered by Reanna Villareal RN; for sedation; 15:33:35 Fentanyl 50 mcg I.V. was administered by Reanna Villareal RN; for sedation; 15:34:22 A MULTIPACK JL 4.0 5Fr catheter was advanced over the wire and used for Left Coronary Angiography. 15:36:34 Catheter removed. 15:36:42 A MULTIPACK 3DRC 5Fr catheter was advanced over the wire and used for Right Coronary Angiography. 15:37:38 Versed 1 mg I.V. was administered by Reanna Villareal RN; for sedation; 15:37:41 Fentanyl 50 mcg I.V. was administered by Reanna Villareal RN; for sedation; 15:40:32 GARNER to LAD angiography performed. 15:40:51 Cristal De Dios RT(R) was relieved by Ludwin Ceron RT(R) as monitoring person 15:41:21 Versed 1 mg I.V. was administered by Reanna Villareal RN; for sedation; 15:41:25 Fentanyl 50 mcg I.V. was administered by Reanna Villareal RN; for sedation; 15:42:10 Catheter removed. 15:42:14 A DIAGNOSTIC AR MOD 5Fr Catheter (074152N) was advanced over the wire and used for Procedure. 15:42:26 RCA angiography performed. 15:42:27 Catheter removed. 15:42:33 A MULTIPACK Pigtail 5 Fr catheter was advanced over the wire and used for Procedure. 15:44:19 Fentanyl 50 mcg I.V. was administered by Reanna Villareal RN; for sedation; 15:44:49 LV gram done using AGUAYO 15:44:56 EF : 20 % 15:44:58 LV hemodynamics recorded. 15:45:22 Injector settings: Ml/sec: 10, Volume: 20, 15:45:32 Catheter removed. 15:45:33 EXOSEAL 5Fr (EX500) opened to sterile field. 15:45:49 Sheath removed intact; hemostasis achieved with Exoseal to the Right Femoral artery. 15:45:52 Procedure ended.(Physican Out) 15:46:14 Fluoroscopy time 04.90 minutes. 15:46:19 Fluoroscopy dose: 264 mGy 15:46:19 Flurop Dose total: 264 15:46:23 Contrast amount:Isovue 300 81ml. 15:46:24 Sharps counted by scrub and verified by R.N. 15:46:26 Insertion/operative site no bleeding no hematoma. 15:46:29 Post-op/insertion site Right Femoral artery dressed using a 4 x 4 and Tegaderm. 15:46:30 Post Procedure Pulses reassessed and unchanged 15:46:33 Post-procedure physical assessment completed. ASA score P 2 - A patient with mild systemic disease as per Nicholas London MD. 15:46:36 Post procedure rhythm: unchanged. 15:46:38 Estimated blood loss: 10 ml 15:46:40 Post procedure instruction explained to patient.Patient verbalizes understanding. 15:46:40 Patient needs reinforcement of post procedure teaching. 15:46:50 Procedure and supply charges have been captured, reviewed, submitted and are correct. 15:46:52 Procedure Complication : No complications 15:47:36 Vital chart was stopped 15:47:36 See physician's report for complete and final results. 15:47:39 Report given to PCU. 15:47:46 Patient transfered to PCU with Bed. 15:47:50 Procedure ended. 15:47:50 Full Disclosure recording stopped 15:51:03 End room use (Document Last) Device Usage Item Name Manufacture Quantity Catalog Hospital Part Current Minimal L ot# / Number Charge Number Stock Stock Serial# Code ACIST Acist 1 53275 792027 035965 054321 20 Syringe NVC Lighting (17472) Systems Inc Bag Microtek 1 709181 45259 007159 5 Decanter NVC Lighting Inc. () Medline Cardinal 1 [id number] 406134 97336 165018 5 Pureshield ([id number]) SHEATH 5FR Terumo 1 [id number] 585419 280301 590757 40 [place]ipton (YMP651) DIAGNOSTIC St Scottie 1 738584 262978 114486 986098 30 WIRE .035 260cm J wire (446294) ACIST Hand Acist 1 40226 425173 731458 101526 5 Control Medical (98009) Systems Inc ACIST Acist 1 96748 753257 963107 576701 5 Manifold Medical (85383) Systems Inc DIAGNOSTIC Cardinal 1 [id number] 178137 05037 829115 30 Multipack Health 5Fr catheter set (KA8363) Tegaderm 4 3M 1 1626W 856887 632757 241207 5 x 4 (1626W) MULTIPACK Cardinal 1 499428 5 JL 4.0 5Fr Health catheter MULTIPACK Cardinal 1 037931 5 3DRC 5Fr Health catheter DIAGNOSTIC Cardinal 1 [id number] 667079 687321 409911 15 AR MOD 5Fr Health Catheter (107397J) MULTIPACK Cardinal 1 365482 5 Pigtail 5 Health Fr catheter EXOSEAL 5Fr Cardinal 1 EX500 207071 842174 256144 10 (EX500) Health Signature Audit [place] Stage Time Signature Unsigned Intra-Procedure 07/22/2017 Ludwin Ceron 3:51:25 PM RT(R) Signatures Monitor : Kayleigh Redman RT Signature : Date : Time : Monitor : Ludwin Ceron RT Signature : Date : Time : [facility] [address], [place] [address]
--- NOTE | ~2017-07-21 | OP ---
PATIENT NAME: THADDEUS WEAVER MEDICAL RECORD: [id number] :49 LOCATION:D.M[facility] D.2115 ADMISSION DATE:07/21/17 SURGEON: KARLA GASTON MD DATE OF OPERATION: 07/22/2017 PROCEDURE: Left heart catheterization, selective coronary angiography, right femoral artery approach. CATHETERS: A 5-Arabic sheath, 5/4 left and right Melanie, 5/4 pig. The procedure was well tolerated. The patient returned to cash. Sheath was removed. Exoseal device placed. FINDINGS: Left ventriculography in 30-degree NETO view shows global hypokinesis, reduced EF, estimated EF 20% to 25%. CORONARY ANATOMY: LEFT MAIN: Left main fills for a short period of time then is totally occluded. LAD: Likewise is totally occluded. CIRCUMFLEX: Likewise is totally occluded. RIGHT CORONARY ARTERY: The PL branch is widely patent throughout its course. SAPHENOUS GRAFT: 1. Saphenous vein graft to the PD is widely patent throughout its course. The area of previous stenting is widely patent. 2. GARNER to LAD is widely patent. Circumflex itself fills through the manzanita right. IMPRESSION: No evidence of restenosis. 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 Known ischemic cardiomyopathy. Medical management of his myopathy, doubt cardiac chest pain. TRANSINT:[id number] Voice Confirmation ID: [id number] DOCUMENT ID: [id number] KARLA GASTON MD at 1155 CC: [id number] DICTATION DATE: 07/22/17 1553 SURVEY CHIEF: 07/22/17 1610 DIS IN 07/22/17 [facility] [address] [place] [address]
[2017-07-21 18:23] LABS: BASOPHILS 0.1 % (0-2); EOSINOPHILS 1.5 % (0-7); HEMATOCRIT 35.7 % (42.0-54.0); HEMOGLOBIN 12.1 g/dL (13.5-17.5); IMMATURE GRANULOCYTES 0.1 % (0-5); LYMPHOCYTES 27.9 % (15-50); MCH 30.5 pg (26.0-34.0); MCHC 33.9 g/dL (31.0-37.0); MCV 89.9 fL (80.0-100.0); MEAN PLATELET VOLUME 8.9 fL (7.4-10.4); MONOCYTES 10.1 % (2-11); NEUTROPHILS 60.3 % (40-80); PLATELET COUNT 159 10x3/uL (130-400); RBC 3.97 10x6/uL (4.20-6.10); RDW 14.6 % (11.5-14.5); WBC 7.1 10x3/uL (4.8-10.8)
[2017-07-21 18:32] LABS: INR 4.24 (0.85-1.17); PROTIME 39.9 SECONDS (11.6-15.0)
[2017-07-21 18:40] LABS: ALBUMIN 3.2 g/dL (3.4-5.0); ALKALINE PHOSPHATASE 81 U/L (46-116); ALT (SGPT) 26 U/L (10-68); CALC OSMOLALITY 281 mosm/kg (275-300); CALCIUM 8.2 mg/dL (8.5-10.1); CARBON DIOXIDE 26.9 mmol/L (21.0-32.0); CHLORIDE - SERUM 102 mmol/L (98-107); GLUCOSE 150 mg/dL (74-106); POTASSIUM - SERUM 3.9 mmol/L (3.5-5.1); PROTEIN - SERUM 6.9 g/dL (6.4-8.2); SODIUM 139 mmol/L (136-145); UREA NITROGEN 15 mg/dL (7-18); eGFR NON AFRICAN AMERICAN 78 mL/min (90-120)
[2017-07-21 18:51] LABS: CHOL - HDL RATIO 5.7 ratio (2.3-4.9); CHOLESTEROL, TOTAL 199 mg/dL (0-200); CKMB 0.9 U/L (0.0-3.6); CREATINE KINASE 56 UL (21-232); HDL CHOLESTEROL 35 mg/dL (32-96); LDL CHOLESTEROL 93 mg/dL (0-100); LDL-HDL RATIO 2.7 ratio (1.5-3.5); TRIGLYCERIDE 358 mg/dL (30-200); TROPONIN-I < 0.017 ng/mL (0.000-0.060)
[2017-07-21 18:55] LABS: APTT 189.5 SECONDS (22.8-39.4)
[2017-07-21 20:25] LABS: D-DIMER-QUANTITATIVE 1.58 ug/mLFEU (0.20-0.54)
[2017-07-21 20:26] LABS: APTT 53.1 SECONDS (22.8-39.4)
[2017-07-21 23:50] LABS: CKMB 0.9 U/L (0.0-3.6); CREATINE KINASE 49 UL (21-232); TROPONIN-I < 0.017 ng/mL (0.000-0.060)
[2017-07-22] VITALS: BP 142/73
[2017-07-22 03:24] VITALS: BP 142/73; BMI 31.2
[2017-07-22 04:00] VITALS: BP 135/79
[2017-07-22 06:24] LABS: BASOPHILS 0.1 % (0-2); EOSINOPHILS 1.9 % (0-7); HEMATOCRIT 35.4 % (42.0-54.0); HEMOGLOBIN 11.7 g/dL (13.5-17.5); IMMATURE GRANULOCYTES 0.3 % (0-5); LYMPHOCYTES 27.7 % (15-50); MCHC 33.1 g/dL (31.0-37.0); MCV 90.8 fL (80.0-100.0); MEAN PLATELET VOLUME 9.4 fL (7.4-10.4); PLATELET COUNT 164 10x3/uL (130-400); WBC 7.9 10x3/uL (4.8-10.8)
[2017-07-22 07:10] LABS: ALKALINE PHOSPHATASE 68 U/L (46-116); ALT (SGPT) 26 U/L (10-68); CALC OSMOLALITY 280 mosm/kg (275-300); CALCIUM 8.1 mg/dL (8.5-10.1); CARBON DIOXIDE 26.4 mmol/L (21.0-32.0); CHLORIDE - SERUM 107 mmol/L (98-107); CKMB 1.1 U/L (0.0-3.6); CREATINE KINASE 46 UL (21-232); CREATININE - SERUM 0.9 mg/dL (0.6-1.3); POTASSIUM - SERUM 3.9 mmol/L (3.5-5.1); PROTEIN - SERUM 6.5 g/dL (6.4-8.2); SODIUM 141 mmol/L (136-145); TROPONIN-I < 0.017 ng/mL (0.000-0.060); UREA NITROGEN 12 mg/dL (7-18); eGFR NON AFRICAN AMERICAN 89 mL/min (90-120)
[2017-07-22 07:17] LABS: GLUCOSE 100 mg/dL (74-106)
[2017-07-22 08:10] VITALS: BP 132/71
[2017-07-22 11:21] VITALS: BP 115/64
[2017-07-22 13:43] VITALS: Ht 172.7 cm; Wt 97.7 kg
[2017-07-22 15:08] LABS: INR 1.39 (0.85-1.17); PROTIME 16.6 SECONDS (11.6-15.0)
[2017-07-22] MEDS ORDERED: LEVAQUIN750 MG PO (16:06)
== END 2017-07-22 18:35 | disposition home or self-care (01) ==
LOC: D.ER 17:26 → OBSVTIME 22:17 → D.M2 22:17 → D.EDHOLD 22:17 → D.MS 23:58 → D.M2 23:58
PROVIDERS: Emergency Medicine; Family Medicine; Internal Medicine Interventional Cardiology; Physician Assistant
DX: I25.5 Ischemic cardiomyopathy (principal); I25.110 Atherosclerotic heart disease of native coronary artery with unstable angina pectoris; Z95.1 Presence of aortocoronary bypass graft; I11.0 Hypertensive heart disease with heart failure; I50.22 Chronic systolic (congestive) heart failure; E78.5 Hyperlipidemia, unspecified; Z87.891 Personal history of nicotine dependence; Z79.01 Long term (current) use of anticoagulants; Z95.0 Presence of cardiac pacemaker; F41.9 Anxiety disorder, unspecified; Z86.718 Personal history of other venous thrombosis and embolism; K21.9 Gastro-esophageal reflux disease without esophagitis

== ENCOUNTER 2017-08-19 11:37 | Emergency (ER) | payer MEDICARE ==
[2017-07-22 13:43] VITALS: BMI 32.7
[~2017-08-19 11:37] MED LIST changes: +LEVAQUIN750 MG PO
[2017-08-19 12:16] LABS: BASOPHILS 0.3 % (0-2); EOSINOPHILS 1.2 % (0-7); HEMATOCRIT 36.8 % (42.0-54.0); HEMOGLOBIN 12.8 g/dL (13.5-17.5); IMMATURE GRANULOCYTES 0.3 % (0-5); LYMPHOCYTES 35.5 % (15-50); MCH 30.8 pg (26.0-34.0); MCHC 34.8 g/dL (31.0-37.0); MCV 88.5 fL (80.0-100.0); MEAN PLATELET VOLUME 8.8 fL (7.4-10.4); MONOCYTES 14.9 % (2-11); NEUTROPHILS 47.8 % (40-80); PLATELET COUNT 179 10x3/uL (130-400); RBC 4.16 10x6/uL (4.20-6.10); RDW 14.6 % (11.5-14.5); WBC 5.8 10x3/uL (4.8-10.8)
[2017-08-19 12:26] LABS: APTT 45.4 SECONDS (22.8-39.4); INR 2.08 (0.85-1.17); PROTIME 22.8 SECONDS (11.6-15.0)
[2017-08-19 12:31] LABS: ALBUMIN 3.7 g/dL (3.4-5.0); ANION GAP 15.4 mmol/L (8-16); BILIRUBIN - TOTAL 0.65 mg/dL (0.2-1.3); CALCIUM 9.1 mg/dL (8.5-10.1); CARBON DIOXIDE 23.5 mmol/L (21.0-32.0); CREATININE - SERUM 1.1 mg/dL (0.6-1.3); POTASSIUM - SERUM 3.9 mmol/L (3.5-5.1); PROTEIN - SERUM 7.8 g/dL (6.4-8.2)
== END 2017-08-19 14:50 | disposition home or self-care (01) ==
LOC: D.ER 11:37
PROVIDERS: Family Medicine
DX: R41.82 Altered mental status, unspecified (principal); H53.9 Unspecified visual disturbance

== ENCOUNTER 2017-08-31 08:34 | Inpatient (IN) | payer MEDICARE ==
[~2017-08-31] VITALS: Ht 172.7 cm; Wt 94.5 kg
[2017-08-31 13:56] LABS: BASOPHILS 0.3 % (0-2); EOSINOPHILS 2.1 % (0-7); HEMATOCRIT 39.1 % (42.0-54.0); HEMOGLOBIN 13.5 g/dL (13.5-17.5); IMMATURE GRANULOCYTES 0.2 % (0-5); LYMPHOCYTES 46.2 % (15-50); MCH 31.1 pg (26.0-34.0); MCHC 34.5 g/dL (31.0-37.0); MCV 90.1 fL (80.0-100.0); MEAN PLATELET VOLUME 9.1 fL (7.4-10.4); MONOCYTES 13.5 % (2-11); NEUTROPHILS 37.7 % (40-80); PLATELET COUNT 202 10x3/uL (130-400); RBC 4.34 10x6/uL (4.20-6.10); RDW 14.4 % (11.5-14.5); WBC 6.3 10x3/uL (4.8-10.8)
[2017-08-31 14:19] LABS: ALBUMIN 3.1 g/dL (3.4-5.0); ALKALINE PHOSPHATASE 81 U/L (46-116); ALT (SGPT) 26 U/L (10-68); BILIRUBIN - TOTAL 0.51 mg/dL (0.2-1.3); C-REACTIVE PROTEIN < 0.2 mg/dL (0.0-0.9); CALC OSMOLALITY 281 mosm/kg (275-300); CALCIUM 8.9 mg/dL (8.5-10.1); CARBON DIOXIDE 24.8 mmol/L (21.0-32.0); CHLORIDE - SERUM 103 mmol/L (98-107); CREATININE - SERUM 0.9 mg/dL (0.6-1.3); GLUCOSE 99 mg/dL (74-106); MAGNESIUM - SERUM 2.3 mg/dL (1.8-2.4); POTASSIUM - SERUM 4.1 mmol/L (3.5-5.1); PROTEIN - SERUM 7.3 g/dL (6.4-8.2); SODIUM 141 mmol/L (136-145); UREA NITROGEN 15 mg/dL (7-18); eGFR NON AFRICAN AMERICAN 89 mL/min (90-120)
[2017-08-31 20:00] VITALS: BP 134/71
[2017-08-31 22:30] VITALS: BP 131/71; Ht 172.7 cm; Wt 94.5 kg
[2017-09-01 05:56] LABS: BASOPHILS 0 % (0-2); EOSINOPHILS 0 % (0-7); HEMOGLOBIN 12.4 g/dL (13.5-17.5); MCH 30.8 pg (26.0-34.0); MCHC 34.4 g/dL (31.0-37.0); MCV 89.6 fL (80.0-100.0); MONOCYTES 3.7 % (2-11); NEUTROPHILS 80.3 % (40-80); PLATELET COUNT 218 10x3/uL (130-400); RBC 4.02 10x6/uL (4.20-6.10); RDW 14.1 % (11.5-14.5); WBC 5.7 10x3/uL (4.8-10.8)
[2017-09-01 06:12] LABS: ALBUMIN 3.3 g/dL (3.4-5.0); ALKALINE PHOSPHATASE 77 U/L (46-116); CALCIUM 9.1 mg/dL (8.5-10.1); CARBON DIOXIDE 23.4 mmol/L (21.0-32.0); CHLORIDE - SERUM 107 mmol/L (98-107); POTASSIUM - SERUM 4.7 mmol/L (3.5-5.1); PROTEIN - SERUM 7.3 g/dL (6.4-8.2); SODIUM 141 mmol/L (136-145); UREA NITROGEN 17 mg/dL (7-18); eGFR NON AFRICAN AMERICAN 78 mL/min (90-120)
[2017-09-01 06:17] VITALS: BP 104/62
[2017-09-01 06:26] LABS: ALT (SGPT) 19 U/L (10-68); CALC OSMOLALITY 285 mosm/kg (275-300); GLUCOSE 150 mg/dL (74-106)
[2017-09-01 12:14] VITALS: BP 112/70
[2017-09-01 15:51] VITALS: BP 119/68
[2017-09-01 19:58] VITALS: BP 112/70
[2017-09-01] MEDS ORDERED: COUMADIN7.5 MG PO (20:33)
[2017-09-01] MEDS ORDERED: ZANAFLEX4 MG PO (20:33)
[2017-09-01] MEDS ORDERED: MECLIZINE HCL25 MG PO (20:35)
[2017-09-02 02:00] VITALS: BP 138/68
[2017-09-02 03:56] VITALS: BP 96/46
[2017-09-02 06:37] LABS: ALBUMIN 3.2 g/dL (3.4-5.0); ALKALINE PHOSPHATASE 73 U/L (46-116); ALT (SGPT) 20 U/L (10-68); CALC OSMOLALITY 288 mosm/kg (275-300); CALCIUM 8.5 mg/dL (8.5-10.1); CARBON DIOXIDE 23.9 mmol/L (21.0-32.0); CHLORIDE - SERUM 108 mmol/L (98-107); GLUCOSE 112 mg/dL (74-106); POTASSIUM - SERUM 4.3 mmol/L (3.5-5.1); PROTEIN - SERUM 6.8 g/dL (6.4-8.2); SODIUM 143 mmol/L (136-145); eGFR NON AFRICAN AMERICAN 78 mL/min (90-120)
[2017-09-02 06:42] LABS: UREA NITROGEN 22 mg/dL (7-18)
[2017-09-02 06:44] LABS: BASOPHILS 0.2 % (0-2); HEMATOCRIT 34.5 % (42.0-54.0); HEMOGLOBIN 11.7 g/dL (13.5-17.5); IMMATURE GRANULOCYTES 0.2 % (0-5); LYMPHOCYTES 32.1 % (15-50); MCHC 33.9 g/dL (31.0-37.0); MCV 91.5 fL (80.0-100.0); MEAN PLATELET VOLUME 9.2 fL (7.4-10.4); NEUTROPHILS 53.5 % (40-80); PLATELET COUNT 224 10x3/uL (130-400); RBC 3.77 10x6/uL (4.20-6.10); RDW 14.9 % (11.5-14.5); WBC 8.8 10x3/uL (4.8-10.8)
[2017-09-02 09:02] VITALS: BP 120/72
[2017-09-02 10:26] LABS: INR 1.72 (0.85-1.17); PROTIME 19.6 SECONDS (11.6-15.0)
[2017-09-02 13:57] VITALS: BP 101/62
[2017-09-02 17:20] VITALS: BP 100/62
[2017-09-02 21:15] VITALS: BP 113/76
[2017-09-03 04:08] VITALS: BP 96/37
[2017-09-03 06:05] LABS: BASOPHILS 0.3 % (0-2); EOSINOPHILS 2.2 % (0-7); HEMATOCRIT 33.8 % (42.0-54.0); HEMOGLOBIN 11.4 g/dL (13.5-17.5); IMMATURE GRANULOCYTES 0.1 % (0-5); LYMPHOCYTES 47.7 % (15-50); MCH 30.9 pg (26.0-34.0); MCHC 33.7 g/dL (31.0-37.0); MCV 91.6 fL (80.0-100.0); MEAN PLATELET VOLUME 9.2 fL (7.4-10.4); MONOCYTES 13.8 % (2-11); NEUTROPHILS 35.9 % (40-80); PLATELET COUNT 201 10x3/uL (130-400); RBC 3.69 10x6/uL (4.20-6.10); RDW 14.8 % (11.5-14.5)
[2017-09-03 06:26] LABS: ALBUMIN 3.1 g/dL (3.4-5.0); ALKALINE PHOSPHATASE 70 U/L (46-116); ALT (SGPT) 20 U/L (10-68); CALC OSMOLALITY 282 mosm/kg (275-300); CALCIUM 8.4 mg/dL (8.5-10.1); CARBON DIOXIDE 27.3 mmol/L (21.0-32.0); CHLORIDE - SERUM 107 mmol/L (98-107); CREATININE - SERUM 0.9 mg/dL (0.6-1.3); GLUCOSE 96 mg/dL (74-106); PROTEIN - SERUM 6.5 g/dL (6.4-8.2); SODIUM 141 mmol/L (136-145); UREA NITROGEN 17 mg/dL (7-18); eGFR NON AFRICAN AMERICAN 89 mL/min (90-120)
[2017-09-03 07:27] LABS: PROTIME 15.9 SECONDS (11.6-15.0)
[2017-09-03 07:28] LABS: INR 1.32 (0.85-1.17)
[2017-09-03 09:30] VITALS: BP 104/62
[2017-09-03 13:03] VITALS: BP 91/41
[2017-09-03 16:37] VITALS: BP 105/63
[2017-09-03 20:00] VITALS: BP 111/49
[2017-09-04] VITALS: BP 97/45
[2017-09-04 04:00] VITALS: BP 119/63
[2017-09-04 05:41] LABS: BASOPHILS 0.3 % (0-2); EOSINOPHILS 2.5 % (0-7); HEMATOCRIT 34.3 % (42.0-54.0); HEMOGLOBIN 11.2 g/dL (13.5-17.5); IMMATURE GRANULOCYTES 0.1 % (0-5); LYMPHOCYTES 37.8 % (15-50); MCH 29.9 pg (26.0-34.0); MCHC 32.7 g/dL (31.0-37.0); MCV 91.5 fL (80.0-100.0); MEAN PLATELET VOLUME 9.3 fL (7.4-10.4); MONOCYTES 11.8 % (2-11); NEUTROPHILS 47.5 % (40-80); PLATELET COUNT 191 10x3/uL (130-400); RBC 3.75 10x6/uL (4.20-6.10); RDW 14.5 % (11.5-14.5); WBC 6.9 10x3/uL (4.8-10.8)
[2017-09-04 06:26] LABS: ALBUMIN 2.9 g/dL (3.4-5.0); ALKALINE PHOSPHATASE 72 U/L (46-116); ALT (SGPT) 21 U/L (10-68); BILIRUBIN - TOTAL 0.53 mg/dL (0.2-1.3); CALC OSMOLALITY 276 mosm/kg (275-300); CALCIUM 8.2 mg/dL (8.5-10.1); CARBON DIOXIDE 25.4 mmol/L (21.0-32.0); CHLORIDE - SERUM 103 mmol/L (98-107); CREATININE - SERUM 0.9 mg/dL (0.6-1.3); GLUCOSE 107 mg/dL (74-106); POTASSIUM - SERUM 4.2 mmol/L (3.5-5.1); PROTEIN - SERUM 6.3 g/dL (6.4-8.2); SODIUM 138 mmol/L (136-145); UREA NITROGEN 16 mg/dL (7-18); eGFR NON AFRICAN AMERICAN 89 mL/min (90-120)
[2017-09-04 09:10] VITALS: BP 98/51
[2017-09-04 13:25] VITALS: BP 97/63
[2017-09-04 17:10] VITALS: BP 117/64
[2017-09-04 20:00] VITALS: BP 107/59
[2017-09-05] VITALS: BP 128/63
[2017-09-05 04:00] VITALS: BP 112/60
[2017-09-05 06:29] LABS: BASOPHILS 0.4 % (0-2); EOSINOPHILS 3.6 % (0-7); HEMOGLOBIN 10.8 g/dL (13.5-17.5); IMMATURE GRANULOCYTES 0.2 % (0-5); LYMPHOCYTES 41.8 % (15-50); MCH 30.8 pg (26.0-34.0); MCHC 33.8 g/dL (31.0-37.0); MCV 91.2 fL (80.0-100.0); MEAN PLATELET VOLUME 9.3 fL (7.4-10.4); MONOCYTES 13.6 % (2-11); NEUTROPHILS 40.4 % (40-80); PLATELET COUNT 181 10x3/uL (130-400); RBC 3.51 10x6/uL (4.20-6.10); RDW 14.3 % (11.5-14.5); WBC 5.3 10x3/uL (4.8-10.8)
[2017-09-05 07:00] LABS: ALBUMIN 2.8 g/dL (3.4-5.0); ALKALINE PHOSPHATASE 67 U/L (46-116); ALT (SGPT) 18 U/L (10-68); BILIRUBIN - TOTAL 0.46 mg/dL (0.2-1.3); CALC OSMOLALITY 278 mosm/kg (275-300); CALCIUM 8.3 mg/dL (8.5-10.1); CARBON DIOXIDE 28.8 mmol/L (21.0-32.0); CHLORIDE - SERUM 105 mmol/L (98-107); CREATININE - SERUM 0.9 mg/dL (0.6-1.3); GLUCOSE 104 mg/dL (74-106); POTASSIUM - SERUM 4.2 mmol/L (3.5-5.1); PROTEIN - SERUM 6.1 g/dL (6.4-8.2); SODIUM 140 mmol/L (136-145); UREA NITROGEN 13 mg/dL (7-18); eGFR NON AFRICAN AMERICAN 89 mL/min (90-120)
[2017-09-05 09:15] VITALS: BP 112/57
[2017-09-05 11:33] VITALS: BP 96/45
[2017-09-05 16:10] VITALS: BP 105/57
[2017-09-05 22:40] VITALS: BP 98/59
[2017-09-06 04:26] VITALS: BP 128/83
[2017-09-06 05:48] LABS: BASOPHILS 0.3 % (0-2); EOSINOPHILS 2.5 % (0-7); IMMATURE GRANULOCYTES 0.2 % (0-5); LYMPHOCYTES 36.9 % (15-50); MCH 30.6 pg (26.0-34.0); MCHC 33.3 g/dL (31.0-37.0); MCV 91.9 fL (80.0-100.0); MEAN PLATELET VOLUME 9.4 fL (7.4-10.4); MONOCYTES 11.6 % (2-11); NEUTROPHILS 48.5 % (40-80); PLATELET COUNT 201 10x3/uL (130-400); RBC 3.59 10x6/uL (4.20-6.10); RDW 14.3 % (11.5-14.5); WBC 6.3 10x3/uL (4.8-10.8)
[2017-09-06 06:14] LABS: ALKALINE PHOSPHATASE 67 U/L (46-116); ALT (SGPT) 20 U/L (10-68); BILIRUBIN - TOTAL 0.42 mg/dL (0.2-1.3); CALC OSMOLALITY 277 mosm/kg (275-300); CALCIUM 8.3 mg/dL (8.5-10.1); CHLORIDE - SERUM 103 mmol/L (98-107); CREATININE - SERUM 0.8 mg/dL (0.6-1.3); GLUCOSE 106 mg/dL (74-106); POTASSIUM - SERUM 4.1 mmol/L (3.5-5.1); PROTEIN - SERUM 6.5 g/dL (6.4-8.2); SODIUM 139 mmol/L (136-145); UREA NITROGEN 12 mg/dL (7-18); eGFR NON AFRICAN AMERICAN > 90 mL/min (90-120)
[2017-09-06 07:12] LABS: APTT 28.5 SECONDS (22.8-39.4)
[2017-09-06 07:13] LABS: INR 1.06 (0.85-1.17); PROTIME 13.4 SECONDS (11.6-15.0)
[2017-09-06 08:23] VITALS: BP 105/64
[2017-09-06 13:53] VITALS: BP 111/68
[2017-09-06 16:41] VITALS: BP 111/64
[2017-09-06 21:26] VITALS: BP 110/66
[2017-09-07 02:09] VITALS: BP 111/68
[2017-09-07 05:24] VITALS: BP 103/37
[2017-09-07 06:08] LABS: BASOPHILS 0 % (0-2); EOSINOPHILS 0 % (0-7); HEMATOCRIT 30.5 % (42.0-54.0); HEMOGLOBIN 10.4 g/dL (13.5-17.5); IMMATURE GRANULOCYTES 0.3 % (0-5); LYMPHOCYTES 14.2 % (15-50); MCHC 34.1 g/dL (31.0-37.0); MEAN PLATELET VOLUME 9.5 fL (7.4-10.4); MONOCYTES 7.5 % (2-11); PLATELET COUNT 195 10x3/uL (130-400); RBC 3.35 10x6/uL (4.20-6.10); RDW 14.1 % (11.5-14.5); WBC 6.4 10x3/uL (4.8-10.8)
[2017-09-07 06:28] LABS: ALBUMIN 2.9 g/dL (3.4-5.0); ALKALINE PHOSPHATASE 73 U/L (46-116); BILIRUBIN - TOTAL 0.39 mg/dL (0.2-1.3); CALCIUM 8.6 mg/dL (8.5-10.1); CARBON DIOXIDE 25.9 mmol/L (21.0-32.0); CHLORIDE - SERUM 105 mmol/L (98-107); CREATININE - SERUM 0.9 mg/dL (0.6-1.3); PROTEIN - SERUM 6.3 g/dL (6.4-8.2); SODIUM 138 mmol/L (136-145); eGFR NON AFRICAN AMERICAN 89 mL/min (90-120)
[2017-09-07 06:30] LABS: ALT (SGPT) 29 U/L (10-68); CALC OSMOLALITY 281 mosm/kg (275-300); GLUCOSE 174 mg/dL (74-106); POTASSIUM - SERUM 4.8 mmol/L (3.5-5.1); UREA NITROGEN 17 mg/dL (7-18)
[2017-09-07 08:48] VITALS: BP 105/58
[2017-09-07 13:12] VITALS: BP 103/54
[2017-09-07] MEDS ORDERED: HYDROCODONE-APA1 TAB PO (15:39)
[2017-09-07] MEDS ORDERED: COLACE100 MG PO (15:40)
== END 2017-09-07 17:58 | disposition home or self-care (01) | DRG 552 ==
LOC: D.ER 08:34 → D.MS 13:35 → D.EDHOLD 13:35 → D.MS 14:25
PROVIDERS: Emergency Medicine; Radiology Diagnostic Radiology; Specialist
PROC: 3E0R3BZ Introduction of Anesthetic Agent into Spinal Canal, Percutaneous Approach (ICD-10-PCS; 2017-09-06)
PROC: 3E0R33Z Introduction of Anti-inflammatory into Spinal Canal, Percutaneous Approach (ICD-10-PCS; principal; 2017-09-06 08:00)
DX: M51.16 Intervertebral disc disorders with radiculopathy, lumbar region (principal); I42.9 Cardiomyopathy, unspecified; M25.552 Pain in left hip; I25.10 Atherosclerotic heart disease of native coronary artery without angina pectoris; M48.061 Spinal stenosis, lumbar region without neurogenic claudication; Z95.810 Presence of automatic (implantable) cardiac defibrillator; Z86.718 Personal history of other venous thrombosis and embolism; F41.9 Anxiety disorder, unspecified; E78.5 Hyperlipidemia, unspecified; K21.9 Gastro-esophageal reflux disease without esophagitis; J44.9 Chronic obstructive pulmonary disease, unspecified; K59.00 Constipation, unspecified

== ENCOUNTER 2017-10-26 19:21 | Emergency (ER) | payer MEDICARE ==
[~2017-10-26] VITALS: Ht 172.7 cm; Wt 92.3 kg
[~2017-10-26 19:21] MED LIST changes: +MECLIZINE HCL25 MG PO; +ZANAFLEX4 MG PO
[2017-10-26 19:24] VITALS: Ht 172.7 cm; Wt 92.3 kg
[2017-10-26] MEDS ORDERED: PERCOCET 10/3251 TA1 PO (22:47)
[2017-10-27 00:44] VITALS: BP 110/71
== END 2017-10-27 00:01 | disposition home or self-care (01) ==
LOC: D.ER 19:21
DX: M51.36 Other intervertebral disc degeneration, lumbar region (principal); M54.16 Radiculopathy, lumbar region; Z86.79 Personal history of other diseases of the circulatory system

== ENCOUNTER → 2018-02-09 15:25 | Outpatient (CLI) | payer MEDICARE ==
[2017-10-26 19:24] VITALS: BMI 30.9
[~2018-02-09 15:25] MED LIST changes: +ATIVAN1 MG; +PERCOCET 10/3251 TA1 PO
[2018-02-09 16:14] LABS: INR 1.71 (0.85-1.17); PROTIME 19.6 SECONDS (11.6-15.0)
== END | disposition home or self-care (01) ==
LOC: D.LAB 15:25
PROVIDERS: Thoracic Surgery (Cardiothoracic Vascular Surgery)
DX: Z51.81 Encounter for therapeutic drug level monitoring (principal); Z79.01 Long term (current) use of anticoagulants

== ENCOUNTER 2018-02-14 05:08 | Day surgery (SDC) | payer MEDICARE ==
[~2018-02-14] VITALS: Ht 172.7 cm; Wt 89.4 kg
--- NOTE | ~2018-02-14 | OP ---
PATIENT NAME: THADDEUS WEAVER MEDICAL RECORD: [id number] :49 LOCATION:D.OPS ADMISSION DATE: SURGEON: CLARISSA CHANG MD DATE OF OPERATION: 02/14/2018 SURGEON: Clarissa Chang MD URGENT CARE PHYSICIAN: MARCELINO Wilson OPERATION PERFORMED: ICD generator change. PREOPERATIVE DIAGNOSIS: Battery end of life. POSTOPERATIVE DIAGNOSIS: Battery end of life. ANESTHESIA: General anesthesia. Additional anesthetic was 10 cc of local 1% Xylocaine. BLOOD LOSS: Minimal. COMPLICATIONS: None. SPECIMENS: None. CONDITION: Stable. DISPOSITION: Recovery room. OPERATIVE FINDINGS: For leads attached securely. INDICATIONS: ICD battery end of life. DESCRIPTION OF PROCEDURE: The patient was brought to the operating suite where general anesthesia was obtained. The chest was prepped and draped. Incision was made in the old incision line, taken down to the pocket, which was opened and the device was removed and each lead was carefully dissected out to prevent any tension and removed from the old ICD. The new ICD was brought into the field and taking care to identify each of the leads by their serial number. The leads were placed into the new generator, screwed into place and strong to a good tug test. Thorough irrigation with vancomycin irrigation was obtained and hemostasis was assured. Then, the leads were carefully coiled underneath the generator and placed within the pocket, which was secured into place. The wound was closed in 3 layers, Dermabond on the skin, and the patient to the recovery room in stable condition. TRANSINT:[id number] Voice Confirmation ID: [id number] DOCUMENT ID: [id number] OPERATIVE REPORT [id number] THADDEUS WEAVER CLARISSA CHANG MD at 0744 CC: [id number] DICTATION DATE: 02/14/18 1143 UNARMED SECURITY GUARD: 02/14/18 1154 [facility] 02/14/18 [place] [address]
[~2018-02-14 05:08] MED LIST changes: -ATIVAN1 MG
[2018-02-14 06:08] LABS: HEMATOCRIT 36.8 % (42.0-54.0); MCH 32.8 pg (26.0-34.0); MCHC 35.3 g/dL (31.0-37.0); MCV 92.9 fL (80.0-100.0); MEAN PLATELET VOLUME 9.1 fL (7.4-10.4); RBC 3.96 10x6/uL (4.20-6.10); RDW 14.3 % (11.5-14.5); WBC 7.4 10x3/uL (4.8-10.8)
[2018-02-14 06:13] LABS: APTT 26.8 SECONDS (22.8-39.4); INR 1.1 (0.85-1.17); PROTIME 13.8 SECONDS (11.6-15.0)
[2018-02-14 06:23] LABS: CALC OSMOLALITY 279 mosm/kg (275-300); CALCIUM 8.8 mg/dL (8.5-10.1); CARBON DIOXIDE 22.7 mmol/L (21.0-32.0); CHLORIDE - SERUM 103 mmol/L (98-107); POTASSIUM - SERUM 4.3 mmol/L (3.5-5.1); SODIUM 138 mmol/L (136-145); UREA NITROGEN 23 mg/dL (7-18); eGFR NON AFRICAN AMERICAN 78 mL/min (90-120)
[2018-02-14 06:28] LABS: GLUCOSE 102 mg/dL (74-106)
[2018-02-14] MEDS ORDERED: ATIVAN1 MG ×2 (06:43→06:44)
[2018-02-14 06:52] VITALS: BP 130/67; Ht 172.7 cm; Wt 89.4 kg
== END 2018-02-14 11:05 | disposition home or self-care (01) ==
LOC: D.OPS 05:08
PROVIDERS: Thoracic Surgery (Cardiothoracic Vascular Surgery)
DX: I42.9 Cardiomyopathy, unspecified (principal); Z45.010 Encounter for checking and testing of cardiac pacemaker pulse generator [battery]

== ENCOUNTER 2018-08-11 10:57 | Outpatient (CLI) | payer MEDICARE ==
--- NOTE | ~2018-08-11 | HEMODYNAMI ---
PATIENT:THADDEUS WEAVER MEDICAL RECORD: [id number] : 49 LOCATION:DAraceliCAT ADMISSION DATE: 08/11/18 Generatedon:08/11/201814:34 Patient name: THADDEUS WEAVER Patient #: [id number] SSN: : 1945 Date of study: 08/11/2018 Page: Of Hemodynamic Procedure Report Patient Data Patient Demographics Procedure consent was obtained First Name: THADDEUS Gender: Male Last Name: MEG : 1945 Middle Initial: T Age: 73 year(s) Patient #: [id number] Race: Additional ID: [id number] Contact details [address]: [address] [place] [address] State: [place] City: [place] Zip code: [address] Past Medical History History of disease Date Diagnosis Comments CAD Allergies Allergen Reaction Date Comments Reported Demerol 05/21/2014 Morphine 07/15/2015 Demerol 06/23/2016 Morphine 06/23/2016 Other allergy 06/23/2016 DILAUDID Other allergy 11/17/2016 Demerol, Morphine, Dilaudid Other allergy 07/22/2017 Demerol, Dilaudid Other allergy 08/11/2018 PCN, Demerol, Dilaudid Admission Admission Data Admission Date: 08/11/2018 Admission Time: 10:57 Admit Source: Other Lab Results Lab Result Date: 08/11/2018 Lab Result Time: 0:00 Biochemistry Name Units Result Min Max BUN mg/dl 24 --(----)-* 7 18 Creatinine mg/dl 1.2 --(---*)-- 0.6 1.3 CBC Name Units Result Min Max Hemoglobin g/dl 12.6 -*(----)-- 13.5 17.5 Procedure Procedure Types Cath Procedure Diagnostic Procedure LHC LHC w/Coronaries w/Grafts Procedure Description Procedure Date Procedure Date: 08/11/2018 Procedure Start Time: 14:17 Procedure End Time: 14:31 Procedure Staff Name Function Nicholas London MD Performing Physician Mis Langston RT Monitor Tracie Navarro RN Nurse Kayleigh Redman RT Scrub Procedure Data Cath Procedure Fluoroscopy Diagnostic fluoroscopy Total fluoroscopy Time: 4.4 time: 4.4 min min Diagnostic fluoroscopy Total fluoroscopy dose: 559 dose: 559 mGy mGy Contrast Material Contrast Material Type Amount (ml) Isovue 300 78 Entry Location Entry Primary Successful Side Size Upsize Upsize Entry Closure Succes sful Closure Location (Fr) 1 (Fr) 2 (Fr) Remarks Device Remarks Femoral Right 5 Fr Exoseal artery Estimated blood loss: 1 ml Diagnostic catheters Device Type Used For End Catheter Placement MULTIPACK JL 4.0 5Fr Procedure catheter MULTIPACK 3DRC 5Fr Procedure catheter MULTIPACK Pigtail 5 Fr Procedure catheter Procedure Complications No complications Procedure Medications Medication Administration Route Dosage 0.9% NaCl I.V. 100 ml/hr Oxygen etCO2 Nasal cannula 2 l/min Lidocaine 2% added to field 20 Heparin Flush Bag added to field 2 bags (1000units/500ml NS) Versed I.V. 2 mg Fentanyl I.V. 50 mcg Versed I.V. 2 mg Fentanyl I.V. 50 mcg Versed I.V. 1 mg Fentanyl I.V. 50 mcg Hemodynamics Rest Heart Rate: 78 (bpm) Pressure Samples Time Site Value (mmHg) Purpose Heart Use Rate(bpm) 14:26 LV 85/7,8 Snapshot 78 14:26 LV 127/11,14 Snapshot 77 Gradients Valve Time Site Site Mean SEP/DFP Peak To Heart Use 1 2 (mmHg) (sec/min) Peak Rate (mmHg) (bpm) Aortic 14:27 LV AO 75 Snapshots Pre Cath Intra NCS Post Cath Vital Signs Time Heart Resp SPO2 etCO2 NIBP (mmHg) Rhythm Pain Sedation Rate (ipm) (%) (mmHg) Status Level (bpm) 14:06:22 77 13 98 32 120/79(110) NSR 0 (11) 10(A) , No pain 14:10:34 77 23 99 11.1 121/79(107) NSR 0 (11) 10(A) , No pain 14:14:42 74 13 97 21.5 101/70(94) NSR 0 (11) 10(A) , No pain 14:18:48 70 10 98 32.6 99/68(88) NSR 0 (11) 10(A) , No pain 14:23:36 71 7 96 35.6 127/72(104) NSR 0 (11) 10(A) , No pain 14:27:48 73 9 96 34.1 123/76(109) NSR 0 (11) 10(A) , No pain 14:32:00 76 15 97 34.1 123/73(105) NSR 0 (11) 10(A) , No pain Medications Time Medication Route Dose Verified Delivered Reason Notes Eff ectiveness by by 14:05:14 0.9% NaCl I.V. 100 Nicholas Tracie used for ml/hr [facility] procedure MD JACOBO 14:05:20 Oxygen etCO2 2 Nicholas Tracie used for Nasal l/min [facility] procedure cannula MD JACOBO 14:05:26 Lidocaine 2% added 20ml Nicholas Nicholas for local to vial [facility] anesthetic field MD SANCHEZ 14:05:30 Heparin Flush added 2 Nicholas Nicholas used for Bag to bags [facility] procedure (1000units/500ml field MD SANCHEZ NS) 14:17:18 Versed I.V. 2 mg Nicholas Tracie for [facility] sedation MD JACOBO 14:17:27 Fentanyl I.V. 50 Nicholas Tracie for mcg [facility] sedation MD JACOBO 14:22:08 Versed I.V. 2 mg Nicholas Tracie for [facility] sedation MD JACOBO 14:22:15 Fentanyl I.V. 50 Nicholas Tracie for mcg Lita[facility] Navarro sedation MD JACOBO 14:26:40 Versed I.V. 1 mg Nicholas Tracie for [facility] sedation MD JACOBO 14:26:45 Fentanyl I.V. 50 Nicholas Tracie for [facility] sedation MD JACOBOchief investigator Log Time Note 13:42:57 Admit Source: Other 13:43:37 Diagnostic Cath status Elective 13:43:46 Mis Langston RT(R) sent for patient. Start room use. 13:44:12 Time tracking: Regular hours (M-F 7:00 - 5:00) 13:44:19 Plan of Care:Hemodynamics will remain stable., Cardiac rhythm will remain stable., Comfort level will be maintained., Respiratory function will remain adequate., Patient/ family verbilizes understanding of procedure., Procedure tolerated without complication., Recovers from procedure without complications.. 13:44:32 Correct patient and procedure confirmed by team. 13:54:50 Lab Result : BUN 24 mg/dl 13:54:50 Lab Result : Hemoglobin 12.6 g/dl 13:54:50 Lab Result : Creatinine 1.2 mg/dl 14:00:27 Patient received from Pre/Post Procedure Room to CCL 1 Alert and oriented. Tansferred to table in Supine position. 14:00:28 Warm blankets applied, and lily hugger turned on for patient comfort. 14:00:30 Signed procedure consent form obtained from patient. 14:00:32 ECG and BP/O2 sat monitors applied to patient. 14:01:59 H&P Date Dictated: 08/09/2018 Within 30 days and on chart., H&P Addendum completed by physician on day of procedure. (MUST COMPLETE FOR ALL OUTPATIENTS). 14:02:01 Pre-procedure instructions explained to patient. 14:02:04 Family in waiting room. 14:02:07 Patient NPO since Midnight. 14:02:28 Patient allergic to Other allergyPCN, Demerol, Dilaudid 14:03:54 Is the patient allergic to Iodine/contrast media? No. 14:03:56 Was the patient premedicated? Yes 14:03:58 Is patient on blood thinner?No 14:04:00 Patient diabetic? No. 14:04:06 Snore? Yes 14:04:09 Sleep apnea? No 14:04:14 Dentures? No ? 14:04:20 Patient pain scale 0/10 ?. 14:04:29 IV patent on arrival in left forearm with 0.9% NaCl at [facility]. 14:04:52 Lab results completed and on chart. 14:05:00 Vital chart was started 14:05:14 0.9% NaCl 100 ml/hr I.V. was administered by Tracie Navarro RN; used for procedure; 14:05:20 Oxygen 2 l/min etCO2 Nasal cannula was administered by Tracie Navarro RN; used for procedure; 14:05:26 Lidocaine 2% 20ml vial added to field was administered by Nicholas London MD; for local anesthetic; 14:05:30 Heparin Flush Bag (1000units/500ml NS) 2 bags added to field was administered by Nicholas London MD; used for procedure; 14:05:46 Lab results completed and on chart. 14:05:56 Right groin area was prepped with chlora-prep and draped in sterile fashion 14:05:57 Alarms reviewed by R. N. 14:05:57 Sharps counted by scrub and verified by R.N. 14:06:01 Baseline sample Acquired. 14:06:05 Rhythm: sinus rhythm 14:06:07 Full Disclosure recording started 14:16:45 Physician arrived 14:16:48 --------ALL STOP TIME OUT------ 14:16:49 Final Timeout: patient, procedure, and site verified with staff and physician. All members of the team are in agreement. 14:16:53 Right groin site verified by team. 14:17:00 Maximum allowable Isovue 300 dose 300ml. Physician notified. (300ml for normal creatinines. For patients with creatinine of 1.7 or higher multiply weight(kg) x 5 divided by creatinine.) 14:17:05 Fire Safety Assessment: A--An alcohol-based skin anteseptic being used preoperatively., C--Open oxygen or nitrous oxide is being used., D--An ESU, laser, or fiber-optic light is being used. 14:17:18 Versed 2 mg I.V. was administered by Tracie Navarro RN; for sedation; 14:17:20 Physical assessment completed. ASA score P 2 - A patient with mild systemic disease as per Nicholas London MD. 14:17:25 Sedation plan: IV Moderate Sedation Medication:Versed, Fentanyl 14:17:27 Fentanyl 50 mcg I.V. was administered by Tracie Navarro RN; for sedation; 14:17:29 Use device set Femoral Dx 14:17:32 Procedure started. 14:17:44 ACIST Syringe (12158) opened to sterile field. 14:17:44 Bag Decanter (2001S) opened to sterile field. 14:17:45 Medline Cath Pack ([id number]) opened to sterile field. 14:17:46 DIAGNOSTIC WIRE .035 260cm J wire (736575) opened to sterile field. 14:17:47 ACIST Hand Control (34345) opened to sterile field. 14:17:48 ACIST Manifold (20140) opened to sterile field. 14:17:48 DIAGNOSTIC Multipack 5Fr catheter set (IN7329) opened to sterile field. 14:17:49 Tegaderm 4 x 4 (1626W) opened to sterile field. 14:17:51 SHEATH 5FR Pyatt (TZH469) opened to sterile field. 14:17:57 Local anesthetic to right femoral artery with Lidocaine 2% by Nicholas London MD.INITIAL ACCESS ONLY 14:18:09 A 5 Fr sheath was inserted into the Right Femoral artery 14:18:39 A MULTIPACK JL 4.0 5Fr catheter was advanced over the wire and used for Procedure. 14:20:09 LCA angiography performed. 14:20:18 Catheter removed. 14:20:26 A MULTIPACK 3DRC 5Fr catheter was advanced over the wire and used for Procedure. 14:21:19 SVG to RCA angiography performed. 14:21:27 RCA angiography performed. 14:21:36 GARNER to LAD angiography performed. 14:22:08 Versed 2 mg I.V. was administered by Tracie Navarro RN; for sedation; 14:22:15 Fentanyl 50 mcg I.V. was administered by Tracie Navarro RN; for sedation; 14:23:08 Catheter removed. 14:25:19 A MULTIPACK Pigtail 5 Fr catheter was advanced over the wire and used for Procedure. 14:25:33 LV angiography performed. 14:25:36 LV gram done using AGUAYO 14::40 Versed 1 mg I.V. was administered by Tracie Navarro RN; for sedation; 14:26:45 Fentanyl 50 mcg I.V. was administered by Tracie Navarro RN; for sedation; 14:27:17 EF : 25 % 14:27:21 Catheter removed. 14:27:25 EXOSEAL 5Fr (EX500) opened to sterile field. 14:27:38 Sheath removed intact; hemostasis achieved with Exoseal to the Right Femoral artery. 14::47 Procedure ended.(Physican Out) 14:29:10 Fluoroscopy time 04.40 minutes. 14:29:14 Contrast amount:Isovue 300 78ml. 14:29:20 Fluoroscopy dose: 559 mGy 14:29:20 Flurop Dose total: 559 14:29:22 Sharps counted by scrub and verified by R.N. 14::24 Insertion/operative site no bleeding no hematoma. 14:29:27 Post right femoral artery:stable 14:29:30 Post Procedure Pulses reassessed and unchanged 14:29:34 Post-procedure physical assessment completed. ASA score P 2 - A patient with mild systemic disease as per Nicholas London MD. 14:29:56 Post procedure rhythm: sinus rhythm 14:30:01 Estimated blood loss: 1 ml 14:30:15 Post procedure instruction explained to patient.Patient verbalizes understanding. 14:30:28 Procedure type changed to Cath procedure, Diagnostic procedure, LHC, LHC w/Coronaries w/Grafts 14:31:06 Procedure and supply charges have been captured, reviewed, submitted and are correct. 14:31:32 Procedure Complication : No complications 14:31:35 Vital chart was stopped 14:31:37 Report given to Pre/Post Procedure Room. 14:31:41 Patient transfered to Pre/Post Procedure Room with Stretcher. 14:31:44 Procedure ended. 14:31:44 Full Disclosure recording stopped 14:31:52 End room use (Document Last) Device Usage Item Name Manufacture Quantity Catalog Hospital Part Current Minimal L ot# / Number Charge Number Stock Stock Serial# Code ACIST Acist 1 82987 497908 962073 979312 20 Syringe Medical (14632) Systems Inc Bag Microtek 1 2001S 381193 51072 563511 5 Decanter Medical Inc. () Medline Medline 1 [id number] 697415 45426 174472 5 Cath Pack ([id number]) DIAGNOSTIC St Scottie 1 887957 035140 073011 110417 30 WIRE .035 260cm J wire (785814) ACIST Hand Acist 1 40521 608530 125078 285961 5 Control Medical (84540) Systems Inc ACIST Acist 1 48974 621945 621523 360634 5 Manifold Medical (15354) Systems Inc DIAGNOSTIC Cardinal 1 JJ4808 192961 61340 760654 30 Multipack Health 5Fr catheter set (QQ8420) Tegaderm 4 3M 1 1626W 594520 665996 088072 5 x 4 (1626W) SHEATH 5FR Terumo 1 MXI948 994744 288174 886066 5 Pyatt (NOE591) MULTIPACK Cardinal 1 396530 5 JL 4.0 5Fr Health catheter MULTIPACK Cardinal 1 088414 5 3DRC 5Fr Health catheter MULTIPACK Cardinal 1 620547 5 Pigtail 5 Health Fr catheter EXOSEAL 5Fr Cardinal 1 EX500 516637 346524 181339 10 (EX500) Health Signature Audit [place] Stage Time Signature Unsigned Intra-Procedure 08/11/2018 Mis Langston 2:34:30 PM RT(R) Signatures Monitor : Mis Langston Signature : RT Date : Time : [place] [id number] [facility] [place] [address]
[~2018-08-11 10:57] MED LIST changes: +ATIVAN1 MG
[2018-08-11] MEDS ORDERED: COREG 3.1253.125 MG PO (11:26)
[2018-08-11] MEDS ORDERED: CLARITIN 10 MG10 MG PO (11:27)
[2018-08-11] MEDS ORDERED: TRAZODONE HCL150 MG PO (11:27)
[2018-08-11] MEDS ORDERED: GLUCOPHAGE1000 MG PO (11:27)
[2018-08-11] MEDS ORDERED: LEVOXYL50 MCG PO (11:28)
[2018-08-11] MEDS ORDERED: CELEXA40 MG PO (11:28)
[2018-08-11] MEDS ORDERED: ALDACTONE25 MG PO (11:28)
[2018-08-11] MEDS ORDERED: COUMADIN6 MG PO (11:28)
[2018-08-11 11:38] VITALS: BP 120/72; BMI 29.4
[2018-08-11 12:19] LABS: BASOPHILS 0.6 % (0-2); EOSINOPHILS 1.7 % (0-7); HEMATOCRIT 35.7 % (42.0-54.0); HEMOGLOBIN 12.6 g/dL (13.5-17.5); IMMATURE GRANULOCYTES 0.2 % (0-5); LYMPHOCYTES 44.4 % (15-50); MCH 30.8 pg (26.0-34.0); MCHC 35.3 g/dL (31.0-37.0); MCV 87.3 fL (80.0-100.0); MEAN PLATELET VOLUME 8.9 fL (7.4-10.4); MONOCYTES 15.6 % (2-11); NEUTROPHILS 37.5 % (40-80); RBC 4.09 10x6/uL (4.20-6.10); RDW 13.6 % (11.5-14.5); WBC 5.4 10x3/uL (4.8-10.8)
[2018-08-11 12:25] LABS: PLATELET COUNT 193 10x3/uL (130-400)
[2018-08-11 12:29] LABS: ANION GAP 12.6 mmol/L (8-16); CALCIUM 8.9 mg/dL (8.5-10.1); CARBON DIOXIDE 27.9 mmol/L (21.0-32.0); CREATININE - SERUM 1.2 mg/dL (0.6-1.3); POTASSIUM - SERUM 3.5 mmol/L (3.5-5.1)
--- NOTE | 2018-08-11 14:40 | NUR ---
PT RECEIVED VIA STRETCHER FROM [employer] ATTENDANT FOR RECOVERY. R GROIN WITH DRESSING CDI, NO BLEEDING OR HEMATOMA NOTED. PEDAL PULSES PALPABLE. PT INSTRUCTED TO KEEP HEAD ON PILLOW AND R LEG STRAIGHT. HR NSR RATE 76, BP 131/65, O2 SAT 95 ON 2L/NC. CALL LIGHT IN REACH, AT BEDSIDE. PT DENIES CHEST PAIN.
--- NOTE | 2018-08-11 15:00 | NUR ---
PT C/O BACK PAIN, THIS IS A CHRONIC PROBLEM FOR HIM. DR STARKEY NOTIFIED , ORDERS RECEIVED. R GROIN SOFT, NO BLEEDING OR SWELLING NOTED. VSS. CALL LIGHT IN REACH
--- NOTE | 2018-08-11 15:30 | NUR ---
NORCO 10 GIVEN PER ORDERS. PT RESTING VISITING W . R GROIN SOFT, DRESSING REMAINS CDI NO BLEEDING OR HEMATOMA NOTE. HR 69, BP 108/55. CALL LIGHT IN REACH, TOLERATING FLUIDS W/O NAUSEA.
--- NOTE | 2018-08-11 15:45 | NUR ---
HOB ELEVATED, SANDWICH AND DRINK SERVED PER REQUEST.
--- NOTE | 2018-08-11 16:00 | NUR ---
PT SITTING UP EATING SANDWICH, GROIN REMAINS SOFT NO BLEEDING OR HEMATOMA NOTED. CALL LIGHT IN REACH. PT STATES BACK PAIN BETTER. AT BEDSIDE.
--- NOTE | 2018-08-11 16:15 | NUR ---
MONITORS AND O2 REMOVED. IV REMOVED FROM PORT AFTER FLUSHING W 5CC NS. PT UP TO DRESS FOR DISCHARGE.
--- NOTE | 2018-08-11 16:25 | NUR ---
DISCHARGE INSTRUCTIONS REVIEWED W PT AND , BOTH VERBALIZED UNDERSTANDING.
--- NOTE | 2018-08-11 16:35 | NUR ---
PT DISCHARGED VIA WC TO PRIVATE VEHICLE WITH ALL BELONGINGS.
--- NOTE | 2018-08-16 08:49 | OP ---
PATIENT NAME: THADDEUS WEAVER MEDICAL RECORD: [id number] :49 LOCATION:D.CAT ADMISSION DATE: SURGEON: KARLA GASTON MD DATE OF OPERATION: 08/11/2018 PROCEDURE: Left heart catheterization, selective coronary angiography plus GARNER plus saphenous vein graft to the right, right femoral artery approach. CATHETERS: A 5-Italian sheath, 5/4 right and left Melanie, 5/4 pig. The procedure was well tolerated. The patient was returned to the cash. Sheath was removed. ExoSeal device was placed. FINDINGS: Left ventriculography in 30-degree AGUAYO view: Normal wall motion, normal systolic function. CORONARY ANATOMY: Left main fills for a short period of time as does the LAD and then both are totally occluded. CIRCUMFLEX: Circumflex is totally occluded, fills well via collaterals from the right. RIGHT CORONARY ARTERY: Right coronary and the [place] posterior descending are widely patent throughout its course with patent stents. No evidence of restenosis. Via the saphenous vein graft to the posterolateral branch, this is another large posterolateral branch, which is widely patent, saphenous graft to the posterolateral. GARNER to the LAD is widely patent throughout its course. IMPRESSION: Stent in the saphenous vein graft supply to the right as well as GARNER to LAD. We are going to revascularize the circ; however, this does fill via collaterals and attempt at improving his EF from 20% to 25% would be very reasonable. TRANSINT:[id number] Voice Confirmation ID: [id number] DOCUMENT ID: [id number] KARLA GASTON MD at 0849 CC: [id number] DICTATION DATE: 08/11/18 143 METAL SANDER: 08/11/18 1907 DEP CLI 08/11/18 [place] [id number] [place] [address]
== END 2018-08-11 16:35 | disposition home or self-care (01) ==
LOC: D.CATH 10:57
PROVIDERS: ATTEND Internal Medicine Interventional Cardiology
DX: I25.119 Atherosclerotic heart disease of native coronary artery with unspecified angina pectoris (principal); Z95.1 Presence of aortocoronary bypass graft; Z95.5 Presence of coronary angioplasty implant and graft; Z01.812 Encounter for preprocedural laboratory examination

== ENCOUNTER 2019-09-07 07:50 | Day surgery (SDC) | payer MEDICARE ==
[~2019-09-07] VITALS: Ht 170.2 cm; Wt 78.0 kg
[~2019-09-07 07:50] MED LIST changes: +ALDACTONE25 MG PO; +CELEXA40 MG PO; +CLARITIN 10 MG10 MG PO; +COREG 3.1253.125 MG PO; +COUMADIN6 MG PO; +GLUCOPHAGE1000 MG PO; +LEVOXYL50 MCG PO; +TRAZODONE HCL150 MG PO
[2019-09-07 08:42] LABS: BASOPHILS 0.5 % (0-2); EOSINOPHILS 2.5 % (0-7); HEMATOCRIT 35.1 % (42.0-54.0); HEMOGLOBIN 11.3 g/dL (13.5-17.5); IMMATURE GRANULOCYTES 0.2 % (0-5); LYMPHOCYTES 32.1 % (15-50); MCH 30.2 pg (26.0-34.0); MCHC 32.2 g/dL (31.0-37.0); MCV 93.9 fL (80.0-100.0); MEAN PLATELET VOLUME 9.2 fL (7.4-10.4); MONOCYTES 10.8 % (2-11); NEUTROPHILS 53.9 % (40-80); PLATELET COUNT 224 10x3/uL (130-400); RBC 3.74 10x6/uL (4.20-6.10); RDW 14.5 % (11.5-14.5); WBC 5.6 10x3/uL (4.8-10.8)
[2019-09-07 08:50] LABS: ANION GAP 11.1 mmol/L (8-16); CALCIUM 9.1 mg/dL (8.5-10.1); CARBON DIOXIDE 28.1 mmol/L (21.0-32.0); CREATININE - SERUM 1.2 mg/dL (0.6-1.3); POTASSIUM - SERUM 4.2 mmol/L (3.5-5.1)
[2019-09-07 09:00] LABS: INR 1.05 (0.85-1.17); PROTIME 13.6 SECONDS (11.6-15.0)
[2019-09-07] MEDS ORDERED: COUMADIN2 MG PO (10:03)
[2019-09-07] MEDS ORDERED: LIPITOR20 MG PO (10:04)
[2019-09-07] MEDS ORDERED: FAMOTIDINE10 MG PO (10:05)
[2019-09-07] MEDS ORDERED: WELLBUTRIN SR150 MG (10:06)
[2019-09-07] MEDS ORDERED: COLACE100 MG PO (10:07)
[2019-09-07 10:18] VITALS: BP 132/75; Ht 170.2 cm; Wt 78.0 kg
--- NOTE | 2019-09-07 12:57 | NUR ---
DR SALINAS REQUESTED THE OLD PORT BE DISPOSED OF-SH
[2019-09-07] MEDS ORDERED: HYDROCODON-ACE1 EAC7 PO (13:05)
--- NOTE | 2019-09-07 15:50 | NUR ---
1445 IV DC'D. CATHETER TIP INTACT. NO BLEEDING AT SITE. BANDAID APPLIED. 1500 REVIEWED DISCHARGE INSTRUCTIONS WITH PATIENT WHO VOICES UNDERSTANDING OF THESE INSTRUCTIONS. PORT CARD IN DISCHARGE PACKET.
--- NOTE | 2019-09-07 15:56 | NUR ---
1510 RECEIVED CALL FROM PLANT PRODUCTION WORKER,JOSE G,THAT CAB ARRANGEMENTS HAVE BEEN MADE FOR PT TO BE TRANSPORTED HOME. 1520 PT DISHCARGED HOME VIA WC AND WAITING FOR THE ARRIVAL OF THE CAB.
== END 2019-09-07 15:20 | disposition home or self-care (01) ==
LOC: D.OPS 07:50
PROVIDERS: Anesthesiology; ATTEND Surgery
DX: T82.594A Other mechanical complication of infusion catheter, initial encounter (principal); K56.609 Unspecified intestinal obstruction, unspecified as to partial versus complete obstruction; I48.91 Unspecified atrial fibrillation; I73.9 Peripheral vascular disease, unspecified

== ENCOUNTER → 2020-01-11 12:48 | Outpatient (CLI) | payer MEDICARE ==
[2019-09-07 10:18] VITALS: BMI 27.0
[~2020-01-11 12:48] MED LIST changes: +COUMADIN2 MG PO; +FAMOTIDINE10 MG PO; +HYDROCODON-ACE1 EAC7 PO; +LIPITOR20 MG PO; +WELLBUTRIN SR150 MG
== END | disposition home or self-care (01) ==
LOC: D.RAD 12:48
PROVIDERS: ATTEND Legal Medicine
DX: R13.11 Dysphagia, oral phase (principal); R13.12 Dysphagia, oropharyngeal phase

== ENCOUNTER 2020-01-18 12:13 | Inpatient (IN) | payer MEDICARE ==
[~2020-01-18] VITALS: Ht 170.2 cm; Wt 70.3 kg
[2020-01-18 12:57] LABS: HEMOGLOBIN 11.8 g/dL (13.5-17.5); LYMPHOCYTES 26.2 % (15-50); MCH 29.5 pg (26.0-34.0); MCHC 31.1 g/dL (31.0-37.0); MEAN PLATELET VOLUME 8.7 fL (7.4-10.4); NEUTROPHILS 59.5 % (40-80); PLATELET COUNT 191 10x3/uL (130-400); RDW 19.2 % (11.5-14.5)
[2020-01-18 13:04] LABS: CALC OSMOLALITY 274 mosm/kg (275-300); CALCIUM 8.8 mg/dL (8.5-10.1); CHLORIDE - SERUM 103 mmol/L (98-107); GLUCOSE 117 mg/dL (74-106); SODIUM 137 mmol/L (136-145); UREA NITROGEN 13 mg/dL (7-18); eGFR NON AFRICAN AMERICAN 78 mL/min (90-120)
[2020-01-18 13:14] LABS: APTT 42.3 SECONDS (22.8-39.4); INR 2.55 (0.85-1.17); PROTIME 27.1 SECONDS (11.6-15.0)
[2020-01-18 13:22] LABS: ALBUMIN 2.9 g/dL (3.4-5.0); ALKALINE PHOSPHATASE 143 U/L (30-120); ALT (SGPT) 11 U/L (10-68); BILIRUBIN - TOTAL 0.88 mg/dL (0.2-1.3); CKMB 1.8 U/L (0.0-3.6); CREATINE KINASE 58 UL (21-232); PRO BNP 15240 pg/mL (0-125); PROTEIN - SERUM 7.9 g/dL (6.4-8.2)
[2020-01-18 13:23] LABS: TROPONIN-I < 0.017 ng/mL (0.000-0.060)
[2020-01-18 14:10] VITALS: BP 114/65
[2020-01-18 15:00] VITALS: BP 102/59
--- NOTE | 2020-01-18 16:23 | NUR ---
IV INFILTRATED. 20 GA DC/D DRSG APPLIED. WARM COMPRESS APPLIED TO [place]OLLEN REGION
[2020-01-18 17:28] VITALS: BP 114/69
--- NOTE | 2020-01-18 18:42 | NUR ---
IV ESTABLISHED 20 GA R UA VIA ULTRASOUND BY RONI JACOBO
[2020-01-18 18:43] VITALS: BP 107/55
[2020-01-18 19:42] LABS: CKMB 1.7 U/L (0.0-3.6); CREATINE KINASE 133 UL (21-232)
[2020-01-18 19:49] LABS: TROPONIN-I < 0.017 ng/mL (0.000-0.060)
[2020-01-19] VITALS: BP 113/65
[2020-01-19 01:42] LABS: CKMB 1.3 U/L (0.0-3.6); CREATINE KINASE 54 UL (21-232); TROPONIN-I 0.023 ng/mL (0.000-0.060)
[2020-01-19] MEDS ORDERED: CELEXA20 MG PO (01:53)
[2020-01-19] MEDS ORDERED: WARFARIN SODIUM5 MG PO (01:56)
[2020-01-19] MEDS ORDERED: PEPCID AC20 MG PO (01:57)
[2020-01-19] MEDS ORDERED: FUROSEMIDE20 MG PO (01:58)
[2020-01-19] MEDS ORDERED: IPRAT-ALBUT 0.5-3 ML UPD ×2 (01:59→02:00)
[2020-01-19] MEDS ORDERED: BIOFREEZE118 ML TOPICAL (02:01)
[2020-01-19] MEDS ORDERED: TOPROL XL25 MG PO (02:03)
[2020-01-19] MEDS ORDERED: HYDROCODON-ACE1 EA10 PO (02:05)
[2020-01-19] MEDS ORDERED: NITROSTAT0.4 MG SL (02:05)
[2020-01-19] MEDS ORDERED: ZOFRAN4 MG PO (02:07)
[2020-01-19] MEDS ORDERED: SENNA LAXATIVE8.6 MG PO (02:08)
[2020-01-19 04:42] VITALS: BP 108/65
[2020-01-19 10:23] VITALS: BP 114/69
--- NOTE | 2020-01-19 11:39 | NUR ---
Have left 3 messages for , 1 message for daughter and 1 message at facility to try and consent for peg tube placement and no calls back.
--- NOTE | 2020-01-19 11:41 | NUR ---
have tried [address] Patel to ask for permission to access port d/t several nurses have attempted to start iv for peg placement and waiting on return call.
[2020-01-19 13:35] VITALS: Ht 170.2 cm; Wt 70.3 kg
[2020-01-19 13:54] LABS: BASOPHILS 0.6 % (0-2); EOSINOPHILS 3.9 % (0-7); HEMATOCRIT 38.9 % (42.0-54.0); HEMOGLOBIN 12.1 g/dL (13.5-17.5); MCH 29.7 pg (26.0-34.0); MCHC 31.1 g/dL (31.0-37.0); MCV 95.3 fL (80.0-100.0); MEAN PLATELET VOLUME 8.9 fL (7.4-10.4); MONOCYTES 14.4 % (2-11); NEUTROPHILS 52.1 % (40-80); PLATELET COUNT 155 10x3/uL (130-400); RBC 4.08 10x6/uL (4.20-6.10); WBC 3.6 10x3/uL (4.8-10.8)
[2020-01-19 14:40] LABS: ALBUMIN 2.6 g/dL (3.4-5.0); CALCIUM 7.8 mg/dL (8.5-10.1); CARBON DIOXIDE 28.7 mmol/L (21.0-32.0); CHLORIDE - SERUM 94 mmol/L (98-107); CKMB 1.4 U/L (0.0-3.6); CREATINE KINASE 61 UL (21-232); MAGNESIUM - SERUM 2.3 mg/dL (1.8-2.4); PHOSPHOROUS 3.7 mg/dL (2.5-4.9); POTASSIUM - SERUM 3.9 mmol/L (3.5-5.1); PRE-ALBUMIN 7.4 mg/dL (18.0-35.7); SODIUM 153 mmol/L (136-145); UREA NITROGEN 11 mg/dL (7-18)
[2020-01-19 14:46] LABS: CALC OSMOLALITY 300 mosm/kg (275-300); CREATININE - SERUM 0.6 mg/dL (0.6-1.3); GLUCOSE 69 mg/dL (74-106); eGFR NON AFRICAN AMERICAN > 90 mL/min (90-120)
[2020-01-19 21:41] VITALS: BP 92/52
[2020-01-20 04:40] VITALS: BP 94/52
--- NOTE | 2020-01-20 07:41 | NUR ---
PT AWAKE AND ORIENTED, LYING INBED. NO COMPLAINTS OR CONCERNS AT HTIS TIME. WILL CNT. TO MONITOR. .CL INR EACH, SRX2.
[2020-01-20 08:00] VITALS: BP 108/57
--- NOTE | 2020-01-20 11:08 | NUR ---
PT TAKEN TO SURGERY VIA STRETCHER WITH GI TEAM. CLEAN AND DRY AT THIS TIME.
--- NOTE | 2020-01-20 11:17 | CN ---
PATIENT NAME:THADDEUS WEAVER MEDICAL RECORD: [id number] : 49 LOCATION:D. D.2112 ADMIT DATE: 01/18/20 ACCOUNT: [id number] CONSULTING PHYSICIAN: KARLA GASTON MD REFERRING PHYSICIAN: CONNIE LOZANO MD DATE OF CONSULTATION: 01/19/2020 HISTORY: A 74-year-old gentleman well known to our service with history of coronary artery disease as well as ischemic cardiomyopathy, status post ICD placement, has been having difficulty with aspiration and was being evaluated for PEG, admitted with shortness of breath. At this point in time appears to be euvolemic. He has a baseline dyspnea secondary to underlying myopathic process. We are asked to see him concerning his cardiovascular status preoperatively. PAST MEDICAL HISTORY: Includes; 1. History of cardiomyopathy. 2. Hypertension. 3. Hyperlipidemia. 4. Coronary artery disease, status post intervention as well as bypass grafting. 5. Atrial fibrillation, on Coumadin for CVA prophylaxis. MEDICATIONS: Include warfarin per scale, Synthroid 50 mcg every day, Pepcid 20 mg p.o. b.i.d., Lasix 20 every day, [place] 10/325 one every 4 hours p.r.n., Celexa 40 every day, aspirin 81 every day, metoprolol 25 every day, DuoNeb every 4 hours p.r.n. ALLERGIES: DEMEROL, PENICILLIN, DILANTIN, HYDROMORPHONE. SOCIAL HISTORY: Nonsmoker, nondrinker. Does have difficulty with his ADLs. REVIEW OF SYSTEMS: The patient reports easy bruising but reports no swollen glands. The patient reports no fever, no night sweats, no significant weight gain, no significant weight loss. No significant exercise tolerance. The patient reports no dry eyes, no irritation, no vision change. Patient reports no difficulty hearing and no ear pain. Patient reports no frequent nose bleeds or nose and sinus problems. Patient reports on arm pain on exertion. No shortness of breath while lying down. No history of heart murmur. Patient reports no cough, no wheezing or coughing up blood. Patient reports no abdominal pain, no vomiting. Normal appetite. No diarrhea and not vomiting blood. No nausea and no constipation. Patient reports no incontinence. No difficulty urinating. No hematuria. No increased frequency. Patient reports no muscle aches. No weakness, no arthralgias, no back pain. No swelling of the extremities. Patient reports no abnormal mole, no jaundice, no rashes. Reports no loss of consciousness. No weakness and no numbness. No seizures, dizziness, or headaches. The patient reports no depression, no sleep disturbance, feeling safe in a relationship and no alcohol abuse. Patient reports on fatigue. Reports no runny nose or sinus pressure. No itching, no hives, and no frequent sneezing. PHYSICAL EXAMINATION: GENERAL: No acute distress, appears stated age, appears comfortable, lying flat actually. VITAL SIGNS: Blood pressure 108/65, pulse 72 and regular. HEENT: Normocephalic and atraumatic. CONSULT REPORT [id number] THADDEUS WEAVER NECK: No bruits noted. HEART: Regular, questionable S3. A II/ systolic ejection murmur. CHEST: Fair air excursion. ABDOMEN: Soft and nontender. EXTREMITIES: Pulses 2+. No edema. IMPRESSION AND PLAN: Ischemic cardiomyopathy, coronary artery disease. Actual symptomology has been quite stable for quite some time. No contraindication to surgery from my standpoint. No contraindication to tolerating Coumadin if indicated from a surgical standpoint. TRANSINT:[id number] Voice Confirmation ID: [id number] DOCUMENT ID: [id number] KARLA GASTON MD at 1117 CC: [id number] DICTATION DATE: 01/19/20 0953 TUBE COVERER: 01/19/20 1426 ADM IN [place] [id number] [place] [address]
--- NOTE | 2020-01-20 12:01 | NUR ---
PT BACK IN ROOM POST PROCEDURE. PEG TUBE IN PLACE, DRESSING C/D/I, NO DIET ORDER AT THSI TIME. CALLED SURGEON FOR FURTHER INSTRUCTIONS REGARDING SUCH. WILL CNT. TO MONITOR. PT COMPLAINING LOUDLY FOR WATER, WILL ACCOMIDATE SOON AN ORDER IS PRESENT.
--- NOTE | 2020-01-20 12:27 | NUR ---
PT IS ANGRY THAT HE CAN NOT HAVE WATER. HE REQUESTED A URINLE STATING HE WOULD PEE IN IT, THEN DRINK IT. DID NOT PROVIDE URINLE. IGAMARCI PT ICECHIPS PER MD APPROVAL. NO FURTHER DIATERY INSTRUCTIONS AT THIS TIME.C
--- NOTE | 2020-01-20 12:39 | NUR ---
PT ANGRY HE CAN NOT HAVE FOOD. INFORMED ME "YOU HAVENT SEEN ME MAD AND SNEAKY YET". WILL CNT. TO MONITOR. CL IN REACH, SRX2, BED ALARM ON AND ACTIVE.
--- NOTE | 2020-01-20 15:56 | NUR ---
I have reviewed this patient and I concur with the Shift Assessment completed by the Licensed Practical Nurse today this shift.
[2020-01-20 21:42] VITALS: BP 99/55
[2020-01-21 01:49] VITALS: BP 86/36
[2020-01-21 05:39] VITALS: BP 96/52
[2020-01-21 08:18] VITALS: BP 100/55
--- NOTE | 2020-01-21 13:40 | NUR ---
CVL DRESSING REPLACED PER PROTOCOL. PREVIOUS SATURATED DRESSING REMOVED AND SITE CLEANED AND NEW DRESSING WITH BIOPATCH PUT IN PLACE. SITE LABELED, INITIALED, AND DATED. NEW NEEDLESS CONNECTORS IN PLACE AND COVERED WITH SWABCAPS. CONDOM CATH PUT IN PLACE R/T PT INCONTINENCE. WILL CTM.
[2020-01-21 17:41] VITALS: BP 99/63
[2020-01-21 21:30] VITALS: BP 98/44
[2020-01-22 04:35] VITALS: BP 102/48
[2020-01-22 06:22] LABS: BASOPHILS 0.7 % (0-2); EOSINOPHILS 5.7 % (0-7); HEMATOCRIT 33.6 % (42.0-54.0); HEMOGLOBIN 10.4 g/dL (13.5-17.5); IMMATURE GRANULOCYTES 0.2 % (0-5); MCH 28.9 pg (26.0-34.0); MCV 93.3 fL (80.0-100.0); MEAN PLATELET VOLUME 9.4 fL (7.4-10.4); MONOCYTES 15.2 % (2-11); NEUTROPHILS 47.2 % (40-80); PLATELET COUNT 180 10x3/uL (130-400); RDW 18.1 % (11.5-14.5); WBC 4.2 10x3/uL (4.8-10.8)
[2020-01-22 06:41] LABS: CALC OSMOLALITY 273 mosm/kg (275-300); CARBON DIOXIDE 33.7 mmol/L (21.0-32.0); CHLORIDE - SERUM 101 mmol/L (98-107); CREATININE - SERUM 0.7 mg/dL (0.6-1.3); GLUCOSE 89 mg/dL (74-106); POTASSIUM - SERUM 3.4 mmol/L (3.5-5.1); SODIUM 137 mmol/L (136-145); UREA NITROGEN 14 mg/dL (7-18); eGFR NON AFRICAN AMERICAN > 90 mL/min (90-120)
[2020-01-22] MEDS ORDERED: DOXYCYCLINE HY100 M2 PO (06:54)
--- NOTE | 2020-01-22 12:44 | MORECARE ---
CASE MANAGEMENT DISCHARGE SUMMARY PATIENT: THADDEUS WEAVER UNIT: [id number] ADM DATE: 01/18/20 AGE: 74 : 47 SEX: M ROOM/BED: D.211 AUTHOR: ROWENA PADILLA PHYSICIAN: REFERRING PHYSICIAN: CONNIE LOZANO MD DATE OF SERVICE: 01/22/20 Discharge Plan Patient Name: THADDEUS WEAVER [facility] [facility] 1945 Planned Disposition: Care Home Facility Anticipated Discharge Date: 01/22/20 Discharge Date: Expected LOS: 4 Initial Reviewer: [email or web address] Initial Review Date: 01/18/2020 Generated: 01/22/20 1:44 pm Comments DCP- Discharge Planning Updated by [email or web address]: Anabelle Overton on 01/22/20 11:[address] CM contacted [facility] with [facility], regarding DC today. Faxed required information to [facility] for prior authorization. External Providers External Provider: [facility] Next Contact Date: Service Request Date: Service Type: Resolution: Reviewer: Comments: Patient Name: THADDEUS WEAVER Page [phone] at 1244 All edits/amendments must be made on the electronic document DICTATION DATE: 01/22/20 1244 STENO POOL SUPERVISOR: MARQUIS 01/22/20 1244 RPT#: [id number] DC DATE: STATUS: ADM IN [facility] [address] [place] [address] END OF REPORT
--- NOTE | 2020-01-22 12:51 | NUR ---
[facility] PORT TO RIGHT CHEST DEACCESSED. TELEMETRY REMOVED AND RETURNED. PT SIGNED PROPER DISCHARGE INSTRUCTIONS AND REMOVED ALL VALUABLES FROM THE ROOM.
--- NOTE | 2020-01-22 13:20 | MORECARE ---
CASE MANAGEMENT DISCHARGE SUMMARY PATIENT: THADDEUS WEAVER UNIT: [id number] ADM DATE: 01/18/20 AGE: 74 : 47 SEX: M ROOM/BED: D.211 AUTHOR: ROWENA PADILLA PHYSICIAN: REFERRING PHYSICIAN: CONNIE LOZANO MD DATE OF SERVICE: 01/22/20 Discharge Plan Patient Name: THADDEUS WEAVER Facility: [facility]:[place] : 1945 Planned Disposition: Nursing Facility EMILY Cert Anticipated Discharge Date: 01/22/20 Discharge Date: 01/22/2020 Expected LOS: 4 Initial Reviewer: [email or web address] Initial Review Date: 01/18/2020 Generated: 01/22/20 2:19 pm Comments DCP- Discharge Planning Updated by [email or web address]: Anabelle Overton on 01/22/20 11:[address] CM contacted [facility] with [facility], regarding DC today. Faxed required information to [facility] for prior authorization. Coverage Notice Reviewer: [email or web address] - Anabelle Overton Notice Issued Date-Time: 01/22/2020 13:12 Notice Type: IM Discharge Notice Notice Delivered To: Patient Relationship to Patient: Self Unit Secretary Name: Thaddeus Weaver Delivery Method: HAND - Hand Delivered Abby Days: Prior Verbal Notification: Recipient Understood Notice: Yes Recipient Signature: Yes Med Rec Note Co-signed by Attending: Coverage Notice Comment: DC IMM Last DP export: 01/22/20 11:44 a Patient Name: THADDEUS WEAVER Page [phone] at 1320 All edits/amendments must be made on the electronic document DICTATION DATE: 01/22/20 1319 MACHINE STRIPPER: MARQUIS 01/22/20 1319 RPT#: [id number] DC DATE:01/22/20 STATUS: DIS IN [facility] [address] [place] [address] END OF REPORT
--- NOTE | 2020-01-23 08:59 | EC ---
PATIENT:THADDEUS WEAVER DATE OF SERVICE: 01/18/20 SEX: M MEDICAL RECORD: [id number] DATE OF : [birth year] LOCATION:D.M2 D.211 AGE OF PATIENT: 74 ADMISSION DATE: 01/18/20 REFERRING PHYSICIAN: INTERPRETING PHYSICIAN: KARLA GASTON MD ECHOCARDIOGRAM REPORT ECHO CHARGES 4 ECHO COMPLETE Date: 01/19/20 CLINICAL DIAGNOSIS: CMP ECHOCARDIOGRAPHIC MEASUREMENTS (adult normal given) AC root (d.<3.7cm) 2.9 cm LV Septum d (<1.2 cm> 0.9 cm Valve Excursion 1.0 cm LV Septum (systole) 1.0 cm Left Atria (s.<4.0cm> 4.2 cm LVPW d(<1.2cm) 0.7 cm RV (d.<2.3cm) 3.0 cm LVPW (sytole) 1.4 cm LV diastole(<5.6CM) 6.4 cm MV E-F(>70mm/sec) cm LV systole 5.0 cm LVOT Diameter 1.9 cm MV exc.(>10mm) 1.2 cm Est.ejection fraction (50-75%) % DOPPLER: LVIT cm/sec A 49 cm/sec E 92 cm/sec LA cm/sec RVSP 40 mmHg LVOT 88 cm/sec AOP1/2T m/s Asc. Ao 72 cm/sec RVOT 51 cm/sec RA cm/sec PA 65 cm/sec AV Gradient Peak 2.1 mmHg AV Mean 1.2 mmHg AV Area 3.4 cm MV Gradient Peak 5.0 mmHg MV Mean 2.3 mmHg MV Area cm COMMENTS: Data Entry Machine Operator: Christina FRITZ Documentation Spec: 3 Dr. Hernandez TAPE# PACS Pericardial Effusion N DATE OF SERVICE: Adequate 2-D, color-flow imaging, spectral Doppler, and M-Mode No LVH. LV internal dimensions are dilated. 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 Aortic valve is sclerotic. No evidence of stenosis by Doppler interrogation. There is mild AI by color-flow imaging. Left atrium is mildly dilated at 4.2 cm. Mitral valve shows no prolapse. Mild MR. Right-sided chambers are grossly normal. Mild TR. ECHOCARDIOGRAM REPORT [id number] THADDEUS WEAVER TRANSINT:[id number] Voice Confirmation ID: [id number] DOCUMENT ID: [id number] KARLA GASTON MD at 0859 CC: [id number] DICTATION DATE: 01/20/20914 CHARGE MANAGER: 01/20/20 1134 DIS IN 01/22/20 [place] [id number] [place] [id number]
== END 2020-01-22 12:52 | DRG 178 ==
LOC: D.ER 12:13 → D.M2 19:00
PROVIDERS: Family Medicine; Surgery; ADMIT Legal Medicine; ATTEND Legal Medicine
PROC: 0DH63UZ Insertion of Feeding Device into Stomach, Percutaneous Approach (ICD-10-PCS; principal; 2020-01-20 11:00)
DX: J69.0 Pneumonitis due to inhalation of food and vomit (principal); E87.0 Hyperosmolality and hypernatremia; R13.10 Dysphagia, unspecified; T17.900A Unspecified foreign body in respiratory tract, part unspecified causing asphyxiation, initial encounter; X58.XXXA Exposure to other specified factors, initial encounter; E11.65 Type 2 diabetes mellitus with hyperglycemia; D64.9 Anemia, unspecified; E78.5 Hyperlipidemia, unspecified; I25.10 Atherosclerotic heart disease of native coronary artery without angina pectoris; I48.91 Unspecified atrial fibrillation; I25.5 Ischemic cardiomyopathy; I11.0 Hypertensive heart disease with heart failure; I50.9 Heart failure, unspecified

== ENCOUNTER → 2020-02-07 12:49 | Outpatient (CLI) | payer MEDICARE, MEDICAID ==
[2020-01-19 13:35] VITALS: BMI 24.2
[~2020-02-07 12:49] MED LIST changes: +BIOFREEZE118 ML TOPICAL; +CELEXA20 MG PO; +DOXYCYCLINE HY100 M2 PO; +FUROSEMIDE20 MG PO; +HYDROCODON-ACE1 EA10 PO; +IPRAT-ALBUT 0.5-3 ML UPD; +NITROSTAT0.4 MG SL; +PEPCID AC20 MG PO; +SENNA LAXATIVE8.6 MG PO; +TOPROL XL25 MG PO; +WARFARIN SODIUM5 MG PO; +ZOFRAN4 MG PO
== END | disposition home or self-care (01) ==
LOC: D.RAD 12:49
PROVIDERS: ATTEND Legal Medicine
DX: R13.11 Dysphagia, oral phase (principal); R13.12 Dysphagia, oropharyngeal phase